=== PATIENT | female | born 1945 | race Caucasian/White ===

== ENCOUNTER 2017-08-17 11:41 | Observation (INO) | payer OTHER ==
[~2017-08-17 11:41] MED LIST: VALSARTAN 40 MG TAB PO SCH
[2017-08-17] MEDS ORDERED: D50W 25 GM/50 ML SYRINGE IV PRN (12:43)
[2017-08-17] MEDS ORDERED: GLUCAGON 1 MG/VIAL IM PRN (12:43)
[2017-08-17] MEDS ORDERED: NACHLORIDE 0.45% 1,000 ML IV SCH ×2 (13:00→22:00)
[2017-08-17 13:06] LABS: Urine Appearance CLOUDY; Urine Bilirubin NEGATIVE (NEG); Urine Blood NEGATIVE (NEG); Urine Color YELLOW; Urine Glucose 2+ (NEG); Urine Protein 2+ (NEG); Urine Specific Gravity 1.015 (1.005-1.030); Urine Urobilinogen 0.2 mg/dL (0.2-1.0)
[2017-08-17 13:08] LABS: Urine Microscopic Reflex ORDER UMIC
[2017-08-17 13:17] LABS: Urine Bacteria <20 /HPF (<20); Urine RBC <5 /HPF (NONE SEEN)
[2017-08-17 13:18] LABS: Urine Culture Reflex Order NOT NEEDED; Urine Yeast FEW (NONE SEEN)
[2017-08-17] MEDS: CLINDAMYCIN INJ 300 MG in NA CHLORIDE 0.9% 50 ML IV SCH ×2 (13:43→18:00)
--- NOTE | 2017-08-17 13:58 | RAD REPORT ---
EXAM DESCRIPTION: US - Abdomen Exam Complete - 08/17/2017 1:43 pm CLINICAL HISTORY: Abdominal pain. COMPARISON: None. FINDINGS: Mild diffuse fatty liver. No focal liver lesions or intrahepatic biliary dilatation is see n. The gallbladder demonstrates no gallstones, pericholecystic fluid or gallbladder wall thickening. Co mmon bile duct is normal in caliber measuring 4 mm. Both kidneys are normal in size, shape and echotexture. No hydronephrosis, focal lesion of concern or perinephric fluid. The spleen is normal in size measuring 8 cm. The pancreas and aorta are obscured by bowel gas. IVC appears grossly normal. IMPRESSION: Fatty liver.
[2017-08-17 14:27] VITALS: BMI 38.3
--- NOTE | 2017-08-17 16:15 | CON ---
Date of Consultation: 08/17/2017 Reason For Consultation: Infection, left breast. History Of Present Illness: The patient is 72-year-old female, who presented to Dr. Mascorro's office t bimal with left breast pain and had some drainage from the left breast, and she was admitted for IV an tibiotics and on workup she was noted to have elevated BUN and creatinine and that is being worked up as well. She states that her last mammogram was several years ago and was negative. She states gigi t this infection has been only there a couple of days, may have been bitten by something. There was no drainage up until just today when she was at Dr. Mascorro's office. There was surrounding erythema, warmth, and edema, which have resolved since the drainage has come down. No fever or chills. No nip ple discharge. Review of Systems: Otherwise unremarkable. Past Medical History: Significant for diabetes and some kidney issues, which is being worked up curr ently. Past Surgical History: Surgery includes right shoulder surgery. Allergies: INCLUDE IODINE. Social History: She does not smoke. Drinks occasionally. Family History: Noncontributory. Physical Examination: Vital Signs: Stable. Currently afebrile. General: She is awake, alert, oriented x3. Head and Neck: Cranial nerves 2 through 12 grossly within normal limits. No neck masses. No JVD. Throat clear. Neck is supple. Chest: Clear. Heart: S1, S2. Abdomen: Soft, nondistended. Mild tenderness on the right side. No rebound, rigidity, or guarding. Extremities: Adequately perfused. Nontender. Neuro: Nonfocal. Breasts: In the inferior aspect of the left breast and areolar skin margin, there was a pinpoint ope ricki with some minimal drainage. There is no fluctuance anymore. There is mild induration. There i s mild erythema. There is minimal warmth. Laboratory Data: Pending. Her BUN and creatinine were elevated at Dr. Mascorro's office. Assessment: A 72-year-old female with left breast cellulitis and abnormal kidney functions. Recommendations: IV antibiotics for the cellulitis. Cultures have been done, we will check the cult ures and adjust the antibiotics accordingly. At this time, I do not think she needs any surgical int ervention; however, should she not improve, then she may benefit from one. In the meantime, there is a consultation for Nephrology Service to evaluate her kidneys and I advised her once her wounds heal ed up, then she is to get her mammogram. We will follow this patient while in the hospital. XIOMARA/MARTY Voice ID: [id number] Report ID: [id number]
--- NOTE | 2017-08-17 17:25 | RAD REPORT ---
EXAM DESCRIPTION: CT - Abdomen Pelvis Wo Contrast - 08/17/2017 4:59 pm CLINICAL HISTORY: Abdominal pain right sided pain COMPARISON: August 17, 2017 abdominal ultrasound TECHNIQUE: Computed axial tomography of the abdomen and pelvis was obtained. IV was not requested. O ral contrast was given. Coronal reconstructions performed. All CT scans are performed using dose optimization technique as appropriate and may include automated exposure control or mA/KV adjustment according to patient size. FINDINGS: The evaluation of solid organs and vessels is limited secondary to the lack of contrast a dministration. The liver, spleen, pancreas, adrenals and right kidney appear grossly normal. 2 millimeter nonobstruc ting left renal calculus is seen. Renal arterial calcifications are noted. A Pedro catheter is present within the bladder. The appendix is normal. There is no evidence of diverticulitis. A small umbilical hernia is present IMPRESSION: 2 millimeter nonobstructing left renal calculus
[2017-08-17] MEDS ORDERED: NA CHLORIDE 0.9% 50 ML ONE (17:26)
[2017-08-17] MEDS: INSULIN -REGULAR HUMAN 50 UNIT/0.5 ML ML SQ SCH (17:35)
[2017-08-17] MEDS ORDERED: HOME MED 1 EA UNK (Gabapentin [Gralise] 300 MG) PO SCH (21:00)
[2017-08-17] MEDS: HYDRALAZINE HCL 25 MG TABLET PO SCH (22:15)
[2017-08-17 23:25] LABS: Hematocrit 27.3 % (36.0-45.0)
[2017-08-17 23:34] LABS: Potassium 4.9 mEq/L (3.6-5.0)
[2017-08-18] MEDS: CLINDAMYCIN INJ 300 MG in NA CHLORIDE 0.9% 50 ML IV SCH ×2 (00:12→06:11)
[2017-08-18] MEDS: INSULIN -REGULAR HUMAN 50 UNIT/0.5 ML ML SQ SCH ×5 (00:23→22:25)
[2017-08-18] MEDS: LEVOTHYROXINE SOD 0.112 MG TAB PO SCH (06:11)
[2017-08-18] MEDS: LEVOTHYROXINE SOD 0.025 MG TAB PO SCH (06:11)
[2017-08-18] MEDS ORDERED: AMLODIPINE 5 MG TAB PO SCH (09:00)
[2017-08-18] MEDS: GABAPENTIN 300 MG CAP PO SCH ×2 (09:37→22:28)
[2017-08-18] MEDS: HYDRALAZINE HCL 25 MG TABLET PO SCH ×2 (09:37→22:26)
[2017-08-18] MEDS: ATORVASTATIN 20 MG TAB PO SCH (09:37)
[2017-08-18] MEDS: NACHLORIDE 0.45% 1,000 ML IV SCH ×2 (11:02→22:25)
--- NOTE | 2017-08-18 11:49 | CON ---
Date of Consultation: 08/18/2017 Additional Consulting Physician: Duglas Villasenor MD Reason For Consultation: Elevated BUN and creatinine. 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 Back in June 2017, the patient was in her [facility], came to the hospital as she visited with her primary care doctor, Dr. Mascorro for b reast abscess, feeling weak for the last couple of weeks. Her lab showed elevated BUN and creatinine . For that reason, she was sent over. The patient denied taking any nonsteroidal, no IV contrast. The patient admits that has some poor intake in the last couple of days and has numbness and pain on the right flank radiating to the groin area, did not take more than Tylenol for that, even though it was not helping. Primary workup in our hospital show CT, normal size kidney but has calcification on the renal artery with nonobstructive calcification. Reviewing her home medication, the patient on A RB and amlodipine. No other insulting medications. In our hospital, Diovan was continued. Past Medical History: Include chronic kidney disease stage 4, baseline creatinine 1.8 to 2, GFR of 2 7, secondary to diabetes nephropathy. Hypertension, nephrosclerosis, hyperlipidemia, vitamin D defic iency, diabetes since 1994 complicated with retinopathy, neuropathy and nephropathy. Allergies: ALLERGIC TO IODINE. Medications: Home medications include olmesartan 20 daily, levothyroxine 137, hydralazine 50 b.i.d., glimepiride 4 mg twice a day, gabapentin 300 b.i.d., Lasix 40 daily, donepezil, cholecalciferol, mari rvastatin, Norvasc 5. Current medications in the hospital include amlodipine 5, atorvastatin, clinda mycin, gabapentin 300 b.i.d., hydralazine, levothyroxine, and valsartan. Social History: Denies smoking, denies drinking, denies drugs abuse. Family History: Positive for hypertension and diabetes. Review of Systems: Head and Neck: No red eye. No ear pain. GI: Has flank pain. : Has a flank pain. 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 Respiratory: No shortness of breath. Has breast pain. Cardiovascular: No chest pain. Neuro: Has neuropathy. Has flank pain. Has chest pain. Endocrine: No polydipsia. Skin: No rash. Physical Examination: Vital Signs: When I saw the patient, blood pressure of 152/66, pulse of 63, afebrile. The patient h ad good urine output over the night, she has 750. Chest: Clear to auscultation. Heart: S1, S2. Regular rhythm. Abdomen: Soft, nontender. Extremities: No edema. Laboratory Data: WBC 9.6, H and H 9.4/27.7, platelets of 321. Sodium 137, potassium 4.9, bicarb 24, BUN 50, creatinine 2.4, calcium 8.2, TSAT of 7.9. Urinalysis, WBC of 50. Serology was negative. Hepatitis was negative. Assessment And Plan: 1.Acute kidney injury secondary to prerenal, secondary to low blood pressure, secondary to the anemi a, superimposed with SHIV inhibitor and ARB use. Questionable of renal vascular disease, supported wi th the finding on the CAT scan. I am going to go ahead and send for eosinophil and send for compleme nt. We will send for LFT and LDH to rule out and we will follow up. Currently, the patient is nonol iguric. We will continue hydration. 2.Hypertension, controlled, not optimal in the presence of acute kidney injury. I am going to go ah ead and discontinue ARB and we will increase Norvasc to 10. We will start low dose of carvedilol. 3.Urinary tract infection. The patient was started on clindamycin, which not going to be covered fo r her urinary tract infection. I am going to add Levaquin. 4.Breast abscess status post drain by itself. I am going to go ahead and increase her clindamycin t o 600. We will add Levaquin and we will follow up. RUTH Voice ID: [id number] Report ID: [id number]
[2017-08-18] MEDS ORDERED: ACETAMINOPHEN 500 MG TAB PO PRN (12:29)
[2017-08-18] MEDS: Levofloxacin 250mg IV 250 MG/50 ML BAG IV SCH (12:31)
[2017-08-18] MEDS: CLINDAMYCIN INJ 600 MG in NA CHLORIDE 0.9% 50 ML IV SCH ×2 (12:31→18:23)
--- NOTE | 2017-08-18 12:33 | PN ---
Date of Progress Note: 08/18/2017 Subjective: The patient is awake, alert. No complaints of the left breast. Objective: Vital Signs: Stable. Afebrile. Extremities: Dressings clean dry and intact. Laboratory Data: Cultures are still pending, but appears to be skin nita. Assessment: Left breast cellulitis. Recommendations: Continue antibiotics. Once medically cleared, the patient can be discharged home o n oral antibiotics based on the sensitivities. No need for surgical intervention at this time. Jace SOLANO/MARTY Voice ID: [id number] Report ID: [id number]
--- NOTE | 2017-08-18 16:27 | HP ---
Date of Admission: 08/17/2017 Chief Complaint: Drainage and pain, left breast. History Of Present Illness: A 72-year-old has been worked up as an outpatient for abdominal pain; ho solitario, she came to the office with pain in the left breast. There was a portia discharge from the lef t breast abscess. At this point, the patient was admitted for observation for possibly draining the abscess completely. The patient denied any history of fever, chills, rigors. Past Medical History: Positive for type 2 diabetes, chronic renal failure, anemia, osteoarthritis, h ypothyroidism. Family History: Diabetes present. Personal History: She is allergic to iodine dye. Home Medicines: Please refer to the chart. Review of Systems: The patient denied any chest pain. Physical Examination: General: Revealed a 72-year-old obese female. Vital Signs: Temperature normal. HEENT: Negative. Neck: Supple. JVD negative. Chest: Clear. Heart: Regular. Abdomen: Tenderness in the upper abdomen. There is active drainage from the left breast. Extremities: No edema. Laboratory Data: Done as an outpatient showed hemoglobin of 8 g. BUN and creatinine elevated to 50 and 2.4 with estimated GFR of 19, blood sugar 359. Iron 32, normal. Assessment: 1.Left breast abscess. 2.Acute on chronic renal failure. 3.Poorly controlled diabetes. 4.Anemia with a normal iron level. 5.Hypothyroidism. 6.Hypertension. Plan: Dr. Nam saw the patient and during the process of coming from office to the hospital, she dr ained the abscess spontaneously with rupture, so surgery was not done. The patient was rehydrated to see whether her BUN and creatinine would improve. She received 1 unit of blood postop. Posttransfu rodrigo, her hemoglobin is over 8 g now. The patient is awaiting to be seen by Nephrology Service to se grady whether she would need additional workup as an inpatient. If this is done, she will be admitted. Otherwise, she will be discharged and followed up as an outpatient. She already has an appointment w [facility] private household worker for her blood sugars. The patient's blood sugars are much better in the hospital . It is very likely that she is not compliant with diet. This will be discussed with the patient. SANDRO/MARTY Voice ID: [id number]
[2017-08-18] MEDS ORDERED: GLUCAGON 1 MG/VIAL IM PRN (20:57)
[2017-08-18] MEDS ORDERED: D50W 25 GM/50 ML SYRINGE IV PRN (20:57)
[2017-08-18] MEDS: CARVEDILOL 6.25 MG TAB PO SCH (22:26)
[2017-08-19] MEDS: CLINDAMYCIN INJ 600 MG in NA CHLORIDE 0.9% 50 ML IV SCH ×3 (00:45→11:06)
[2017-08-19 03:35] VITALS: O2SAT 94
[2017-08-19 05:57] LABS: RBC Red Blood Cell Count 3.06 M/uL (3.86-4.86)
[2017-08-19 06:16] LABS: Albumin 2.7 g/dL (3.2-5.5); Phosphorus 5.3 mg/dL (2.5-4.3); Potassium 5.1 mEq/L (3.6-5.0)
[2017-08-19] MEDS: LEVOTHYROXINE SOD 0.112 MG TAB PO SCH (06:20)
[2017-08-19] MEDS: LEVOTHYROXINE SOD 0.025 MG TAB PO SCH (06:20)
[2017-08-19 06:42] LABS: Ferritin 13.4 ng/ml (11.0-306.8); Folic Acid, (Folate) 11.8 ng/ml (>5.21)
[2017-08-19 06:46] LABS: Thyroid Stimulating Hormone 11.94 uIU/mL (0.34-5.60)
[2017-08-19] MEDS: INSULIN -REGULAR HUMAN 50 UNIT/0.5 ML ML SQ SCH ×3 (07:30→17:03)
[2017-08-19] MEDS ORDERED: AMLODIPINE 10 MG TAB PO SCH (09:00)
[2017-08-19] MEDS: Levofloxacin 250mg IV 250 MG/50 ML BAG IV SCH (10:15)
[2017-08-19] MEDS: ATORVASTATIN 20 MG TAB PO SCH (10:16)
[2017-08-19] MEDS: HYDRALAZINE HCL 25 MG TABLET PO SCH (10:17)
[2017-08-19] MEDS: GABAPENTIN 300 MG CAP PO SCH (10:17)
[2017-08-19] MEDS: INSULIN DETEMIR 100 UNIT/1 ML INSULIN SQ SCH ×2 (10:17→17:03)
[2017-08-19] MEDS: CARVEDILOL 6.25 MG TAB PO SCH (10:18)
[2017-08-19] MEDS ORDERED: SOD FERRIC GLUC COMPLX/SUCROSE 250 MG in NA CHLORIDE 0.9% 250 ML IV SCH (12:00)
[2017-08-19] MEDS ORDERED: NACHLORIDE 0.45% 1,000 ML IV SCH (13:00)
--- NOTE | 2017-08-19 14:01 | PN ---
Date of Progress Note: 08/19/2017 Subjective: The patient doing better. No nausea. No vomiting. The patient was admitted with acute kidney injury and breast abscess. Physical Examination: Vital Signs: Blood pressure 126/83, pulse of 84. The patient had good urine output of 1500. Chest: Clear to auscultation. Heart: S1, S2. Regular. Abdomen: Soft, nontender. Extremities: No edema. Laboratory Data: H and H 8.9/27.3. Sodium 135, potassium 5.1, bicarb 22, BUN 51, creatinine down to 1.9, calcium 7.8, phosphorus 5.3, TSAT of 13. Ferritin of 123, TSH 11.9. Urinalysis positive for i nfection. Abdominal CT showing no hydro, nonobstructing kidney stone on the left, 2 mm, has arterial calcification. LDH was 123. Complement is still pending. Urine eosinophil is still pending. Medications: Current medications the patient on include clindamycin 600 q.6, Levaquin 250 daily, aml odipine 10 mg, hydralazine 50 b.i.d., gabapentin, normal saline at 75 per hour. Assessment And Plan: 1.Acute kidney injury secondary to prerenal, superimposed with ARB use, on the recovery phase, looke d to me normal volume. I am going to decrease IV fluid. We will plan to discontinue. 2.Hypertension, better controlled. We are going to add carvedilol. We will monitor the patient. 3.Iron deficiency anemia. We will start the patient on IV iron. 4.Urinary tract infection. Continue Levaquin. We will follow up culture. 5.Breast abscess. Continue clindamycin. We will follow up with primary. 6.Nephrolithiasis, possible contributing to her pain, nonobstructing. I am going to start the patient on Flomax. We will follow up the patient. JANI/MARTY Voice ID: [id number] Report ID: [id number]
--- NOTE | 2017-08-19 14:49 | RAD REPORT ---
EXAM DESCRIPTION: RAD - Chest Pa And Lat (2 Views) - 08/19/2017 2:42 pm CLINICAL HISTORY: J14.9 Chest pain. COMPARISON: Chest Pa And Lat (2 Views) dated 12/15/2016; Chest Single View dated 11/04/2016; Chest Si ngle View dated 11/03/2016; Chest Single View dated 11/02/2016 FINDINGS: The lungs are clear. Minimal linear atelectasis left mid lung. The heart is moderately enl arged in size. No displaced fractures. Right humeral prosthesis is noted. IMPRESSION: Moderate cardiomegaly.
[2017-08-19 17:17] VITALS: BP 139/65; TEMP 97.7
[2017-08-20] MEDS ORDERED: LEVOTHYROXINE SOD 0.075 MG TAB PO SCH (06:30)
[2017-08-20] MEDS ORDERED: TAMSULOSIN 0.4 MG SR CAP PO SCH (09:00)
== END 2017-08-19 17:23 | disposition home or self-care (01) ==
LOC: 2ND 11:49
PROVIDERS: ADMIT Internal Medicine; ATTEND Internal Medicine
PROC: 30233N1 Transfusion of Nonautologous Red Blood Cells into Peripheral Vein, Percutaneous Approach (ICD-10-PCS; principal; 2017-08-17)
DX: N61.1 Abscess of the breast and nipple (principal); I12.9 Hypertensive chronic kidney disease with stage 1 through stage 4 chronic kidney disease, or unspecified chronic kidney disease; E11.22 Type 2 diabetes mellitus with diabetic chronic kidney disease; N18.4 Chronic kidney disease, stage 4 (severe); N17.9 Acute kidney failure, unspecified; N39.0 Urinary tract infection, site not specified; E78.5 Hyperlipidemia, unspecified; E11.40 Type 2 diabetes mellitus with diabetic neuropathy, unspecified; E03.9 Hypothyroidism, unspecified; D64.9 Anemia, unspecified; N20.0 Calculus of kidney
CPT/HCPCS: 36415 ×2; 36430; 71046; 74176; 76700; 80048; 80069; 82607; 82728; 82746; 82962 ×11; 83540; 83615; 84439; 84443; 84466; 85014; 85018; 85044; 86160 ×2; 86850; 86900; 86901; 87070; 87077; 87086; 87088; 87186; 87205; 88108; J2916; P9016; 81003; 81015

== ENCOUNTER 2017-09-01 16:21 | Observation (INO) | payer OTHER ==
[2017-09-01] MEDS ORDERED: ONDANSETRON 4 MG/2 ML VIAL IV PRN (16:44)
[2017-09-01] MEDS ORDERED: CEFTRIAXONE/SWI 1gm 1 GM/10 ML SYR IVP SCH (17:00)
[2017-09-01] MEDS: Levofloxacin 250mg IV 250 MG/50 ML BAG IV SCH (17:39)
[2017-09-01] MEDS: NA CHLORIDE 0.9% 1,000 ML IV SCH (17:44)
[2017-09-01 17:48] VITALS: BMI 40.3
[2017-09-01] MEDS ORDERED: D50W 25 GM/50 ML SYRINGE IV PRN (17:49)
[2017-09-01] MEDS ORDERED: GLUCAGON 1 MG/VIAL IM PRN (17:49)
[2017-09-01 18:45] LABS: Uric Acid 10.3 mg/dL (2.6-6.0)
[2017-09-01 18:55] LABS: Absolute Lymphocytes (CBC) 1.3 K/uL (0.7-4.9); Absolute Monocytes 0.8 K/uL (0.1-1.3); Absolute Neutrophil 9.1 K/uL (1.8-8.0); Basophils % 0.7 % (0-1.3); Hematocrit 28.2 % (36.0-45.0); Lymphocytes % 11.3 % (15.3-44.8); MCH 28.1 pg (27.0-35.0); MCV 88.8 fL (80-100); MPV 9.3 fL (7.6-11.3); Monocytes % 6.5 % (3.3-12.3); RBC Red Blood Cell Count 3.18 M/uL (3.86-4.86)
[2017-09-01 19:29] LABS: Magnesium 2.9 mg/dL (1.8-2.4); Potassium 4.8 mmol/L (3.5-5.1)
[2017-09-01] MEDS ORDERED: PNEUMOCOCCAL VACCINE 0.5 ML IMVAC ONE (20:00)
--- NOTE | 2017-09-01 21:20 | RAD REPORT ---
EXAM DESCRIPTION: US - Renal Ultrasound-Complete - 09/01/2017 8:19 pm CLINICAL HISTORY: Acute on chronic renal disease, UTI COMPARISON: None. FINDINGS: The right kidney measures 9.9 x 4.5 x 4.9 cm. The left kidney measures 10.2 x 5.5 x 4.0 c m. Cortical thickness is normal. Echogenicity is increased for both kidneys. This can be medical danielle l disease as well as artifact due to large body habitus. No hydronephrosis or suspicious renal mass. No urinary bladder mass or wall thickening. IMPRESSION: No hydronephrosis or suspicious renal mass. Increased cortical echogenicity can be seen with medical renal disease. Artifact from large body habi tus can create this pattern as well.
[2017-09-01] MEDS: INSULIN -REGULAR HUMAN 50 UNIT/0.5 ML ML SQ SCH (21:49)
[2017-09-01 22:10] LABS: Urine Appearance TURBID; Urine Bilirubin NEGATIVE (NEG); Urine Blood 1+ (NEG); Urine Color ORANGE; Urine Glucose NEGATIVE (NEG); Urine Protein 2+ (NEG); Urine Specific Gravity 1.015 (1.005-1.030); Urine pH 5.5 (5.0-7.0)
[2017-09-01 22:18] LABS: Urine Microscopic Reflex ORDER UMIC
[2017-09-01 22:29] LABS: Urine Culture Reflex Order REFLEXED
[2017-09-01 22:30] LABS: Urine Bacteria <20 /HPF (<20); Urine RBC <5 /HPF (NONE SEEN)
[2017-09-02] MEDS: NA CHLORIDE 0.9% 1,000 ML IV SCH ×3 (04:27→23:00)
[2017-09-02 05:25] LABS: Phosphorus 4.7 mg/dL (2.5-4.9); Potassium 4.8 mmol/L (3.5-5.1)
[2017-09-02] MEDS: INSULIN -REGULAR HUMAN 50 UNIT/0.5 ML ML SQ SCH ×4 (07:30→22:15)
[2017-09-02] MEDS: PANTOPRAZOLE 40MG TABLET PO SCH (09:16)
--- NOTE | 2017-09-02 11:23 | RAD REPORT ---
EXAM DESCRIPTION: US - Urinary Bladder - 09/02/2017 11:11 am CLINICAL HISTORY: Abdominal pain/renal injury FINDINGS: Prevoid bladder volume equals 157 cc Postvoid bladder volume equals 10 cc No ascites is noted. An adnexal mass is not seen. IMPRESSION: Prevoid bladder volume equals 157 cc Postvoid bladder volume equals 10 cc
[2017-09-02] MEDS ORDERED: NA CHLORIDE 0.9% 500 ML IV ONE (12:22)
[2017-09-02] MEDS: AMLODIPINE 10 MG TAB PO SCH (13:46)
--- NOTE | 2017-09-02 17:10 | CON ---
Date of Consultation: 09/02/2017 Additional Consulting Physician: Duglas Villasenor MD Reason For Consultation: Elevated BUN and creatinine, hyperkalemia. 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 The patient came to the office yesterday, found to have elevated creatinine up to 3 with hyperkalemia. For that reason, the patient was directed to the emergency room for direct admis rodrigo. The patient over the night started on IV hydration. The patient was started on olmesartan rec ently. The patient denied any change in her diet. No nausea. No vomiting. No IV contrast. No non steroidal intake. Over the night, the patient was started on IV hydration, creatinine down to 2.6. Potassium has been back to normal. Blood pressure has been stable. Past Medical History: Includes: 1.Chronic kidney disease, stage 3B/4 secondary to diabetes nephropathy. 2.Hypertension. 3.Hyperlipidemia. 4.Vitamin D deficiency. 5.Diabetes complicated with neuropathy, nephropathy, and retinopathy. Allergies: TO IODINE. Medications: Home medications include: 1.Januvia. 2. 3.Levothyroxine. 4.Hydralazine b.i.d. 5.Gabapentin. 6.Lasix 40 daily. 7.Aricept. 8.Cholecalciferol. 9.Atorvastatin. 10.Olmesartan. 11.Amlodipine. Current medications in the hospital include insulin, Levaquin, levothyroxine, and pantoprazole. Review of Systems: Head and Neck: No red eye. No ear pain. GI: No nausea. No vomiting. : No polyuria. No dysuria. No hematuria. 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 Respiratory: No shortness of breath. Cardiovascular: No chest pain. Neuro: No weakness. No tremor. Musculoskeletal: No joint pain. Endocrine: No polydipsia. Skin: No rash. Physical Examination: General: When I saw the patient, the patient sitting in the bed, comfortable, not on any distress, o n IV fluid. Vital Signs: Blood pressure 142/64, pulse of 58, afebrile. Chest: Clear to auscultation. Heart: S1, S2. Regular. Abdomen: Soft, nontender. Extremities: No edema. Laboratory Data: WBC 11.6, H and H 8.9/28.2 which is around her baseline, platelets 286. Sodium 140 , potassium 4.8, bicarb 21, BUN 77, creatinine down to 2.6, GFR of 18. Blood sugar still on the 200, uric acid of 10.3, albumin of 3, LDH of 171, CK of 100. Previous lab data; creatinine yesterday was 2.8 and back on the , it was 2.4. GFR was down to 14. Renal ultrasound; normal size kidney 9.9 x 10.2, no hydronephrosis. Bladder ultrasound; no postvoid. Assessment And Plan: 1.Acute kidney injury secondary to prerenal, complicated with hyperkalemia, possible superimposed wi th olmesartan, possible renal artery stenosis given the recurrent acute kidney injury after starting ARB on the patient and the patient's finding on the CAT scan before. I am going to continue hydratio n. I am going to go ahead and give the patient extra bolus of normal saline of 500, and we will foll ow up the patient. If the kidney function continued to improve, we will keep holding ARB. The patie nt not a candidate for any ARB for the time being and we will monitor the patient. The patient may n eed MRA as outpatient to evaluate the renal artery. 2.Hyperkalemia secondary to renal failure and ARB, recovered, resolved. 3.Hypertension. Given the acute kidney injury, I will keep holding ARB or SHIV inhibitor and we will monitor the patient. I am going to go ahead and start the patient on gentle dose of calcium channel libby to establish better blood pressure control. 4.Urinary tract infection. We will start the patient on Levaquin, dose adjusted. 5.Diabetes as by primary. JANI/MARTY Voice ID: [id number] Report ID: [id number]
[2017-09-02] MEDS: Levofloxacin 250mg IV 250 MG/50 ML BAG IV SCH (17:19)
--- NOTE | 2017-09-02 18:41 | HP ---
Date of Admission: 09/01/2017 Chief Complaint: Worsening of renal function. History Of Present Illness: A 72-year-old female, who is known to have multiple medical problems inc luding chronic renal failure, was admitted initially with hospitalist because of worsening renal fail ure and UTI. It was later transferred to my service. The patient has been having dysuria. There is no history of fever, chills, or rigors. The patient denied any chest pain or shortness of breath. Past Medical History: Positive for hypertension, type 2 diabetes, chronic renal failure, hypothyroid ism, hyperlipidemia, venous insufficiency. Family History: Diabetes present. Personal History: Nonsmoker. Home Medicines: Please refer to the chart. Review of Systems: No chest pain or shortness of breath. Physical Examination: General: Revealed a 72-year-old obese female. Vital Signs: Normal. HEENT: Negative. Neck: Supple. JVD negative. Chest: Clear. Heart: Regular. Abdomen: Pendulous, nontender. Extremities: Mild pedal edema. Laboratory Data: Showed a BUN of 79, creatinine 2.8, GFR 17, random blood sugar of 232, magnesium 2. 9, procalcitonin 0.06. Urinalysis showed evidence of UTI with pyuria and bacteriuria. CBC; white co unt 11.6, hemoglobin 8.9. Assessment: 1.Acute on chronic renal failure. 2.Urinary tract infection. 3.Type 2 diabetes. 4.Hypertension. 5.Hyperlipidemia. 6.Hypothyroidism. Plan: The patient is started on Levaquin. This will be continued for now. Her renal ultrasound myers s not show any evidence of obstruction. The patient will be continued on IV fluids to see whether th at would improve her kidney function along with the antibiotic. The patient is started on thyroid me dication and Lipitor. Since her blood pressure is normal, blood pressure medicines will be on hold f or now. She is put on a sliding scale for her blood sugars. SANDRO/MARTY Voice ID: [id number]
[2017-09-02] MEDS: ATORVASTATIN 20 MG TAB PO SCH (22:15)
[2017-09-03] MEDS: NA CHLORIDE 0.9% 1,000 ML IV SCH ×4 (01:54→23:30)
[2017-09-03] MEDS: LEVOTHYROXINE SOD 0.112 MG TAB PO SCH (05:56)
[2017-09-03] MEDS: LEVOTHYROXINE SOD 0.025 MG TAB PO SCH (05:56)
[2017-09-03] MEDS: INSULIN -REGULAR HUMAN 50 UNIT/0.5 ML ML SQ SCH ×4 (07:30→20:41)
[2017-09-03] MEDS: ACETAMINOPHEN 500 MG TAB PO PRN (08:47)
[2017-09-03] MEDS: AMLODIPINE 10 MG TAB PO SCH (08:48)
[2017-09-03] MEDS: PANTOPRAZOLE 40MG TABLET PO SCH (08:48)
[2017-09-03] MEDS: Levofloxacin 250mg IV 250 MG/50 ML BAG IV SCH (16:09)
[2017-09-03] MEDS: ATORVASTATIN 20 MG TAB PO SCH (20:38)
--- NOTE | 2017-09-04 01:46 | PN ---
Date of Progress Note: 09/03/2017 Chief Complaint: Elevated BUN and creatinine, hyperkalemia, diabetic kidney disease, and chronic kidney stage 3, acute kidney injury. History Of Present Illness: The patient developed progressively worse renal function. She has underlying chronic kidney disease stage 3. She was found to have high BUN and creatinine ratio, BUN of 77, creatinine of 2.6. Renal function has declined. The patient was found to have acute kidney injury secondary to severe prerenal azotemia, complicated with hyperkalemia. The patient was treated for hyperkalemia and she was taken off angiotensin receptor libby. She developed hyperkalemia secondary to renal function worsening potentiated by angiotensin receptor libby and hypoperfusion. Review of Systems: The patient denies fever, chills. Physical Examination: Lungs: Clear to auscultation bilaterally. Heart: S1, S2. Abdomen: Soft, benign. Extremities: Minimal edema. Laboratory Data: Potassium 4.8, sodium 140, BUN 77, creatinine 2.6. Renal ultrasound showed kidney size 9.9 and 10.2. No hydronephrosis. Bladder ultrasound did not show increased postvoid residual volume. Impression And Plan: 1. Acute kidney injury secondary to severe prerenal azotemia complicated by hyperkalemia, possible effect of angiotensin receptor libby, and possible effect of nonsteroidal antiinflammatory medication. The patient will avoid nonsteroidal antiinflammatory medication. 2. Hyperkalemia. Continue low-potassium diet and continue IV fluids for volume control and to prevent worsening of the renal function. 3. Avoid nonsteroidal anti-inflammatory medication. 4. Diabetes mellitus. Continue insulin. 5. Urinary tract infection. The patient is on antibiotics and adjust antibiotics to renal dose. I spent total 36 min including 26 min to coordinate care plan. JOAQUINA/MARTY Voice ID: [id number] Report ID: [id number] ARIADNA
[2017-09-04] MEDS: NA CHLORIDE 0.9% 1,000 ML IV SCH ×2 (04:49→12:02)
[2017-09-04 05:36] LABS: Albumin 2.7 g/dL (3.4-5.0); Phosphorus 3.3 mg/dL (2.5-4.9); Potassium 5.1 mmol/L (3.5-5.1)
[2017-09-04] MEDS: LEVOTHYROXINE SOD 0.025 MG TAB PO SCH (06:26)
[2017-09-04] MEDS: LEVOTHYROXINE SOD 0.112 MG TAB PO SCH (06:26)
[2017-09-04] MEDS: INSULIN -REGULAR HUMAN 50 UNIT/0.5 ML ML SQ SCH ×5 (09:10→21:00)
[2017-09-04] MEDS: ACETAMINOPHEN 500 MG TAB PO PRN ×2 (09:14→17:32)
[2017-09-04] MEDS: PANTOPRAZOLE 40MG TABLET PO SCH (09:14)
[2017-09-04] MEDS: AMLODIPINE 10 MG TAB PO SCH (09:15)
[2017-09-04] MEDS: Levofloxacin 250mg IV 250 MG/50 ML BAG IV SCH (17:35)
[2017-09-04] MEDS: ATORVASTATIN 20 MG TAB PO SCH (20:20)
[2017-09-05] MEDS: NA CHLORIDE 0.9% 1,000 ML IV SCH ×2 (00:30→11:00)
--- NOTE | 2017-09-05 04:49 | PN ---
Date of Progress Note: 09/04/2017 duplicate see 09/04/2017 note dictation MTDD
[2017-09-05 05:41] LABS: Albumin 2.7 g/dL (3.4-5.0); Phosphorus 2.9 mg/dL (2.5-4.9)
[2017-09-05] MEDS: LEVOTHYROXINE SOD 0.025 MG TAB PO SCH (06:02)
[2017-09-05] MEDS: ACETAMINOPHEN 500 MG TAB PO PRN (06:02)
[2017-09-05] MEDS: LEVOTHYROXINE SOD 0.112 MG TAB PO SCH (06:02)
[2017-09-05] MEDS: AMLODIPINE 10 MG TAB PO SCH (08:49)
[2017-09-05] MEDS: INSULIN -REGULAR HUMAN 50 UNIT/0.5 ML ML SQ SCH ×2 (08:50→11:30)
[2017-09-05] MEDS: PANTOPRAZOLE 40MG TABLET PO SCH (08:50)
[2017-09-05 09:11] VITALS: O2SAT 97
[2017-09-05 13:10] VITALS: BP 163/70; TEMP 98.4
--- NOTE | 2017-09-05 14:14 | PN ---
Date of Progress Note: 09/04/2017 Chief Complaint: Prerenal azotemia, acute kidney injury on chronic kidney disease. The patient remains nonoliguric. She is tolerating p.o. intake. Review of Systems: Denies fever or chills. Denies nausea or vomiting. She is complaining of generalized weakness, fatigue. Physical Examination: Vital Signs: Blood pressure is 166/67, heart rate 66, respiratory rate 18, temperature 98.7. General: Not in acute distress Eyes: Anicteric sclerae. Lungs: Clear to auscultation bilaterally. Heart: S1, S2. Abdomen: Soft, benign. EXTREMITIES: Minimal edema. Laboratory Data: Hemoglobin 8.9, WBC 11.6, platelet count 286,000, BUN 46, creatinine 1.8, glucose 177, calcium 8.3, albumin 2.7. Sodium 145, potassium 5.1, chloride 116, CO2 22. Impression And Plan: 1. Acute kidney injury on chronic kidney disease stage 3. There is high BUN and creatinine ratio. On arrival to this hospital, BUN was 77, creatinine 2.6. Renal function has been gradually improving. The patient was found to have prerenal azotemia associated with hyperkalemia. There is no significant metabolic acidosis. The patient will avoid nonsteroidal anti-inflammatory medication. 2. Hypoalbuminemia. Workup will be started for proteinuria. The patient has diabetes mellitus, likely there is element of proteinuria secondary to diabetic kidney disease. 3. Urinary tract infection. The patient is on antibiotics. Adjust antibiotics to renal dose. SANG Voice ID: [id number] Report ID: [id number] ARIADNA
--- NOTE | 2017-09-05 22:40 | PN ---
Date of Progress Note: 09/05/2017 Chief Complaint: Prerenal azotemia, acute kidney injury on chronic kidney disease. Review of Systems: The patient is feeling better. She is tolerating p.o. intake. She denies nausea, vomiting, melena, or hematemesis. Physical Examination: Lungs: Clear to auscultation bilaterally. Heart: S1, S2. Abdomen: Soft, benign. Extremities: Minimal edema. Laboratory Data: WBC 11.6, platelet count 286,000. Creatinine 1.8, glucose 177 , calcium 8.3, albumin 2.5, potassium 5.0, sodium 143, chloride 116, CO2 22. Impression And Plan: 1. Acute kidney injury on chronic kidney disease stage 3. BUN was 77, creatinine 2.6. Renal function is improving gradually. Continue to monitor fluid balance. Advance p.o. fluids as needed. 2. There is no evidence of metabolic acidosis. The patient will continue low- potassium diet and plan is to monitor potassium level. 3. Hypoalbuminemia. Workup will be started for proteinuria. The patient will need to follow up with primary care physician as well as surveillance dual rate officer outpatient for further recommendation. 4. Urinary tract infection. The patient was treated with antibiotics. JOAQUINA/MARTY Voice ID: [id number] Report ID: [id number] ARIADNA
--- NOTE | 2017-10-17 19:13 | DS ---
Date of Discharge: 09/05/2017 Final Diagnoses: 1.Acute on chronic renal failure. 2.Type 2 diabetes, requiring insulin. 3.Hypertension. 4.Chronic renal failure. 5.Urinary tract infection. 6.Hyperlipidemia. 7.Hypothyroidism. Hospital Course: This patient, who is known to have type 2 diabetes and chronic renal failure, was a dmitted with worsening of renal failure and UTI. The patient after admission to the hospital was sta rted on Levaquin. She received IV fluids to see whether that would improve her renal function over t he next few days. Her renal function did improve and on the day of discharge, her BUN and creatinine came down to 34 and 1.7 which was quite an improvement from her initial BUN of 79 and creatinine of 2.8. In view of this, the patient was discharged with advice to continue antibiotic and follow up in the office. Laboratory Data: For laboratory values, please refer to the chart. SANDRO/MARTY Voice ID: [id number] Report ID: [id number]
== END 2017-09-05 15:37 | disposition home or self-care (01) ==
LOC: 2ND 16:31 → OBSVTOIN 16:31 → INTOOBSV 16:31 → 2ND 09-03 17:43
PROVIDERS: ADMIT Family Medicine; ATTEND Internal Medicine
DX: I12.9 Hypertensive chronic kidney disease with stage 1 through stage 4 chronic kidney disease, or unspecified chronic kidney disease (principal); E11.22 Type 2 diabetes mellitus with diabetic chronic kidney disease; N18.3 Chronic kidney disease, stage 3 (moderate); N17.9 Acute kidney failure, unspecified; N39.0 Urinary tract infection, site not specified; E03.9 Hypothyroidism, unspecified; E78.5 Hyperlipidemia, unspecified; E87.5 Hyperkalemia; E88.09 Other disorders of plasma-protein metabolism, not elsewhere classified; E66.9 Obesity, unspecified; Z68.41 Body mass index [BMI] 40.0-44.9, adult; Z91.041 Radiographic dye allergy status
CPT/HCPCS: 36415 ×4; 76770; 76857; 80048 ×2; 80069 ×3; 82040; 82550; 82962 ×15; 83615; 83735; 84100; 84145; 84550; 85025; 87040 ×2; 87086; 87088; G0378 ×2; J2405; J7030 ×9; 81003; 81015; G0379; J0696

== ENCOUNTER 2017-12-15 16:06 | Inpatient (IN) | payer OTHER ==
[2017-12-15] MEDS ORDERED: FUROSEMIDE 20 MG/ 2ML VIAL IV ONE (19:03)
[2017-12-15] MEDS ORDERED: GLUCAGON 1 MG/VIAL IM PRN (19:05)
[2017-12-15] MEDS ORDERED: D50W 25 GM/50 ML SYRINGE IV PRN (19:05)
[2017-12-15] MEDS ORDERED: ALBUTEROL 2.5 MG/3 ML NEB SOL NEB ONE (20:15)
[2017-12-15] MEDS ORDERED: D50W 25 GM/50 ML SYRINGE IV ONE (20:16)
[2017-12-15] MEDS ORDERED: INSULIN -REGULAR HUMAN 50 UNIT/0.5 ML ML IV ONE (20:18)
[2017-12-15] MEDS ORDERED: FUROSEMIDE 40 MG/4 ML VIAL IV ONE (20:25)
[2017-12-15] MEDS ORDERED: INSULIN -REGULAR HUMAN 50 UNIT/0.5 ML ML SQ SCH (21:00)
[2017-12-15] MEDS ORDERED: GABAPENTIN 100 MG CAP PO SCH (21:00)
[2017-12-15 21:21] LABS: Folic Acid, (Folate) 15.5 ng/mL (3.1-17.5)
--- NOTE | 2017-12-15 21:22 | RAD REPORT ---
EXAM DESCRIPTION: RAD - Chest Single View - 12/15/2017 9:11 pm CLINICAL HISTORY: chf Chest pain. COMPARISON: Chest Pa And Lat (2 Views) dated 08/19/2017; Chest Pa And Lat (2 Views) dated 12/15/2016; Chest Single View dated 11/04/2016; Chest Single View dated 11/03/2016 FINDINGS: Portable technique limits examination quality. Mild interstitial pulmonary edema is noted. The heart is moderately enlarged in size. No displaced fr actures.Proximal right humeral hardware noted. IMPRESSION: Mild CHF versus volume overload pattern.
[2017-12-15 21:53] LABS: Thyroid Stimulating Hormone 4.72 uIU/mL (0.360-3.740)
[2017-12-15] MEDS: FUROSEMIDE 40 MG/4 ML VIAL IV SCH (23:05)
[2017-12-15] MEDS: DONEPEZIL HCL 5 MG TAB PO SCH (23:06)
[2017-12-15] MEDS: HYDRALAZINE HCL 25 MG TABLET PO SCH (23:06)
[2017-12-15] MEDS: ATORVASTATIN 20 MG TAB PO SCH (23:06)
[2017-12-15] MEDS ORDERED: NA CHLORIDE 0.9% 250 ML ONE (23:31)
[2017-12-16] MEDS: FUROSEMIDE 40 MG/4 ML VIAL IV SCH ×3 (01:00→22:43)
[2017-12-16 05:16] LABS: Urine Protein/Creatinine Ratio 2.55 ratio (<0.15)
[2017-12-16 05:55] LABS: RBC Red Blood Cell Count 2.45 M/uL (3.86-4.86)
[2017-12-16 05:56] LABS: Hematocrit 21.6 % (36.0-45.0)
[2017-12-16 06:33] LABS: Albumin 2.6 g/dL (3.4-5.0); Ferritin 10.4 ng/mL (8-388); Folic Acid, (Folate) 14.7 ng/mL (3.1-17.5); Phosphorus 5.6 mg/dL (2.5-4.9); Potassium 4.9 mmol/L (3.5-5.1)
[2017-12-16] MEDS: LEVOTHYROXINE SOD 0.025 MG TAB PO SCH (07:42)
[2017-12-16] MEDS: LEVOTHYROXINE SOD 0.112 MG TAB PO SCH (07:43)
[2017-12-16] MEDS ORDERED: CODEINE 30MG/APAP 300MG TAB PO PRN (07:55)
--- NOTE | 2017-12-16 08:04 | RAD REPORT ---
EXAM DESCRIPTION: US - Renal Ultrasound-Complete - 12/15/2017 10:30 pm CLINICAL HISTORY: . Acute renal insufficiency COMPARISON: August 2017 FINDINGS: The right kidney measures 10 cm with a normal echotexture. The left kidney measures 10 cm with a normal echotexture. Hydronephrosis is not seen. IMPRESSION: Unremarkable renal ultrasound.
[2017-12-16] MEDS: HYDRALAZINE HCL 25 MG TABLET PO SCH ×2 (08:48→22:43)
[2017-12-16] MEDS: GABAPENTIN 300 MG CAP PO SCH ×2 (08:48→22:44)
[2017-12-16] MEDS: METOPROLOL XL 25 MG TAB PO SCH (08:57)
[2017-12-16] MEDS: AMLODIPINE 5 MG TAB PO SCH (08:57)
[2017-12-16 09:47] VITALS: BMI 41.5
[2017-12-16] MEDS ORDERED: NA CHLORIDE 0.9% 250 ML ONE ×2 (10:10→16:16)
[2017-12-16] MEDS ORDERED: BISACODYL E.C. 5 MG TAB PO ONE (17:00)
[2017-12-16] MEDS ORDERED: GOLYTELY 4000 ML PO SCH (17:00)
--- NOTE | 2017-12-16 18:56 | HP ---
Date of Admission: 12/15/2017 Chief Complaint: Severe anemia, hyperkalemia. History Of Present Illness: A 72-year-old female, who is known to have multiple medical issues, was seen by Dr. Vasquez for her renal failure. The patient was found to have hemoglobin below 8 g. The patient is admitted also because of hyperkalemia associated with the renal failure. The patient den ies any history of black stools recently. No history of vomiting of blood. Past Medical History: Extensive includes chronic renal failure, type 2 diabetes, hypertension, hypot hyroidism, dementia, diabetic neuropathy, hyperlipidemia. Past Surgical History: Positive for right shoulder surgery, right wrist injury and surgery. Family History: Diabetes present. Personal History: Allergic to iodine. Review of Systems: The patient denies any chest pain. Physical Examination: General: Revealed 72-year-old female, alert for her age. HEENT: Negative other than conjunctiva pallor. Neck: Supple. JVD negative. Chest: Few scattered wheezes. Heart: Regular. Abdomen: Pendulous, nontender. Extremities: Mild pedal edema. Laboratory Data: Hemoglobin after transfusion of 1 unit is 7.3. Chem profile; BUN 81, creatinine 3. 3, GFR 14, TSH 4.7, iron 21.0. Assessment: 1.Severe anemia. 2.Uqtct-ks-wsomwnf renal failure with hyperkalemia. 3.Hypertension. 4.Hyperlipidemia. 5.Type 2 diabetes requiring insulin. 6.Dementia. Plan: The patient had 1 unit of packed RBC last night. She is due to get 1 more unit. GI consultat ion has been done. SANDRO/MARTY Voice ID: [id number]
[2017-12-16] MEDS ORDERED: GLUCAGON 1 MG/VIAL IM PRN (20:07)
[2017-12-16] MEDS ORDERED: D50W 25 GM/50 ML SYRINGE IV PRN (20:07)
[2017-12-16] MEDS: INSULIN -REGULAR HUMAN 50 UNIT/0.5 ML ML SQ SCH (21:00)
[2017-12-16] MEDS: DONEPEZIL HCL 5 MG TAB PO SCH (22:43)
[2017-12-16] MEDS: ATORVASTATIN 20 MG TAB PO SCH (22:44)
--- NOTE | 2017-12-16 23:32 | P.PN ---
Subjective Date of Service: 12/16/17 Chief Complaint: Sent for abnromal labs and LE edema Subjective: No new changes Pt with Hx od DM and CKD Cr ~2.0, eGFR ~17 sent by her PCP for LE edema and abnormal labs Denied nausea, vomiting, diarrhea and constipation, chest pain, palpitation Physical Examination - Vital Signs Temperature: 97.5 F Blood Pressure: 127/47 Pulse: 50 Respirations: 18 Pulse Ox (%): 90 - Physical Exam General: Oriented x3 HEENT: Atraumatic Neck: Supple Cardiovascular: Regular rate/rhythm, Normal S1 S2, Edema (trace ) - Studies Laboratory Data (last 24 hrs) 12/16/17 : Sodium Cancelled, Potassium Cancelled, BUN Cancelled, Creatinine Cancelled, Glucose Cancelled 12/16/17 05:21: Hgb 7.3 L*, Hct 21.6 L 12/16/17 05:21: Sodium 139, Potassium 4.9, BUN 81 H, Creatinine 3.30 H, Glucose 145 H, Phosphorus 5.6 H Assessment And Plan - Current Problems (Diagnosis) (1) Chronic renal disease Onset Date: 09/02/17 Current Visit: No Status: Chronic (2) Diabetes mellitus Current Visit: No Status: Chronic - Plan A 72 Y/O woman with PMHx of DM for ~30yrs, with neuropathy and retinopathy, HTN and CKD IV was by Dr Fajardo for LE edema, anemia and eleavted RFT Denied PMHx: as Above PSH: Rt shoulder surgery, Wrist Sx Allergies: Iodinated contrast Family Hx: DM Social: denied smoking Assessmnet and plan Progressive CKD DM progression and fluid overload Renal diet adjust meds as per RFT Will send for SPEP, UPEP, K/l and UPC doesnt need WRITING TUTOR at this time will reduce lasix Acute anemia S/p PRBC Plan for EGD and colonoscopy iron panel and ferritin FRANSICO HTN DM as per primary team Raphael
[2017-12-17 05:56] LABS: Albumin 2.7 g/dL (3.4-5.0); Phosphorus 4.8 mg/dL (2.5-4.9)
[2017-12-17] MEDS: LEVOTHYROXINE SOD 0.112 MG TAB PO SCH (06:00)
[2017-12-17] MEDS: LEVOTHYROXINE SOD 0.025 MG TAB PO SCH (06:00)
[2017-12-17 06:04] LABS: Hematocrit 29.6 % (36.0-45.0)
[2017-12-17] MEDS: INSULIN -REGULAR HUMAN 50 UNIT/0.5 ML ML SQ SCH ×4 (07:30→21:00)
[2017-12-17 07:46] LABS: Ferritin 31.7 ng/mL (8-388)
[2017-12-17] MEDS: AMLODIPINE 5 MG TAB PO SCH (09:00)
[2017-12-17] MEDS: GABAPENTIN 300 MG CAP PO SCH ×2 (09:00→21:28)
[2017-12-17] MEDS: METOPROLOL XL 25 MG TAB PO SCH (09:00)
[2017-12-17] MEDS: HYDRALAZINE HCL 25 MG TABLET PO SCH ×2 (09:00→21:27)
[2017-12-17] MEDS ORDERED: EPOETIN ALFA 10,000 UNIT/ML SQ ONE (09:00)
[2017-12-17] MEDS: FUROSEMIDE 40 MG/4 ML VIAL IV SCH ×2 (10:08→21:28)
[2017-12-17] MEDS ORDERED: NA CHLORIDE 0.9% 1,000 ML ONE (12:14)
[2017-12-17] MEDS ORDERED: PROPOFOL 200 MG/20 ML VIAL IV ONE (12:35)
[2017-12-17] MEDS ORDERED: LIDOCAINE 2% MPF 5 ML VIAL ONE (12:36)
--- NOTE | 2017-12-17 12:37 | P.PN ---
Subjective Date of Service: 12/17/17 Chief Complaint: Sent for abnromal labs and LE edema Pt with Hx od DM and CKD Cr ~2.0, eGFR ~17 sent by her PCP for LE edema and abnormal labs Denied nausea, vomiting, diarrhea and constipation, chest pain, palpitation Today feels better Cr 3.0 Hb 10 now plan for EGD lasix to bid Epogen today F/U SPEP, UPEP, 24hrs urine for prot/cr Physical Examination - Vital Signs Temperature: 97.4 F Blood Pressure: 147/52 Pulse: 50 Respirations: 18 Pulse Ox (%): 93 - Physical Exam General: Alert, Oriented x3 HEENT: Atraumatic Neck: Supple, JVD not distended Respiratory: Clear to auscultation bilaterally, Normal air movement Cardiovascular: Normal pulses, Edema - Studies Laboratory Data (last 24 hrs) 12/17/17 05:10: Hgb 10.3 L D, Hct 29.6 L D 12/17/17 05:10: Sodium 138, Potassium 4.0, BUN 70 H, Creatinine 3.00 H, Glucose 125 H, Phosphorus 4.8 Microbiology Data (last 24 hrs): 12/17/17 01:20 Stool Occult Blood - Final Assessment And Plan - Current Problems (Diagnosis) (1) Chronic renal disease Onset Date: 09/02/17 Current Visit: No Status: Chronic (2) Diabetes mellitus Current Visit: No Status: Chronic - Plan A 72 Y/O woman with PMHx of DM for ~30yrs, with neuropathy and retinopathy, HTN and CKD IV was by Dr Fajardo for LE edema, anemia and eleavted RFT denied nausea, vomiting , diarrhea and constipation Pt had a prior episode of LANDON and hyperkalemia that required HD Today feels better Cr 3.0 Hb 10 now plan for EGD lasix to bid Epogen today F/U SPEP, UPEP, 24hrs urine for prot/cr Assessmnet and plan LANDON on CKD Cr baseline ~2.0 with proteinuria DM progression and fluid overload Renal diet adjust meds as per RFT Will send for SPEP, UPEP, K/l and UPC doesnt need DRAWER IN STITCH BONDING MACHINE at this time will reduce lasix to bid Acute anemia S/p PRBC Plan for EGD and colonoscopy iron panel and ferritin FRANSICO Low iron stores , will give IV iron HTN DM as per primary team Neuropay
--- NOTE | 2017-12-17 13:50 | ENDO RPT ---
[address], [address] EGD PROCEDURE REPORT EXAM DATE: 12/17/2017 PATIENT NAME: Nelia Amaro MR#: [id number] BIRTHDATE: 1945 ATTENDING: Luis Felipe Lay Dr STATUS: inpatient - [facility] LAB TECH: Dara Mata RN and Coni Lopez INDICATIONS: The patient is a 72 yr old Female here for an EGD due to anemia (hgb 7.3) and iron deficiency anemia PROCEDURE PERFORMED: EGD with biopsy MEDICATIONS: Per Anesthesia. TOPICAL ANESTHETIC: none CONSENT: The patient understands the risks and benefits of the procedure and understands that these risks include, but are not limited to: sedation, allergic reaction, infection, perforation and/or bleeding. Alternative means of evaluation and treatment include, among others: physical exam, x-rays, and/or surgical intervention. The patient elects to proceed with this endoscopic procedure. DESCRIPTION OF PROCEDURE: During intra-op preparation period all mechanical medical equipment was checked for proper function. Hand hygiene and appropriate measures for infection prevention was taken. Procedure, possible complications, and alternatives including but not limited to the possibility of bleeding, perforation, tear, infection, sepsis, need for surgery, need for blood transfusion, and anesthesia related complications were explained to the patient. After the risks, benefits and alternatives of the procedure were thoroughly explained, Informed consent was verified, confirmed and timeout was successfully executed by the treatment team. The patient was placed in the left lateral position. The patient was anesthetized with topical anesthesia. Through the anesthetized oropharyngeal area, the scope was passed without any difficulty. The Pentax EG-[id number] ([id number]) endoscope was introduced through the mouth and advanced to the third portion of the duodenum. Retroflexed views revealed no abnormalities. The gastroscope was then slowly withdrawn and removed. Moderate gastritis was found in the antrum. Multiple biopsies were obtained and sent to pathology. Small bowel biopsies obtained. ADVERSE EVENTS: There were no complications. IMPRESSIONS: 1. Moderate gastritis in the antrum, s/p biopsies 2. Small bowel biopsies obtained RECOMMENDATIONS: 1. await biopsy results 2. acid suppression therapy REPEAT EXAM: Luis Felipe Lay Dr eSigned: Luis Felipe Lay Dr 12/17/2017 1:04 PM cc: CPT CODES: ICD9 CODES: PATIENT NAME: Nelia Amaro MR#: [id number]
[2017-12-17] MEDS ORDERED: MORPHINE 4 MG/ML SYR IV PRN (18:33)
[2017-12-17] MEDS ORDERED: ONDANSETRON 4 MG/2 ML VIAL IV PRN (20:21)
[2017-12-17] MEDS ORDERED: ONDANSETRON 4 MG/2 ML VIAL ONE (20:31)
--- NOTE | 2017-12-17 20:45 | RAD REPORT ---
EXAM DESCRIPTION: RAD - Small Bowel Series - 12/17/2017 8:37 pm CLINICAL HISTORY: Dr rice Abdominal pain COMPARISON: Renal Ultrasound-Complete dated 12/15/2017 FINDINGS: Hydraulic Chair Assembler film shows a nonspecific bowel gas pattern. No obstruction or free air. No suspiciou s calcifications. Gastric size and mucosal fold pattern are normal. No delay in transit of contrast into the small florence l. Proximal small bowel to the level of jejunum is normal. Distal small bowel evaluation is not possi ble as the patient refused further imaging due to nausea and vomiting. No fluoroscopy was performed. Twenty images were obtained. IMPRESSION: Limited small bowel series was performed which showed no abnormality. Distal small bowel was not contrast opacified or assessed as the patient refused further imaging afte r the 3 hour marti.
[2017-12-17] MEDS: JUVEN PACKET PO SCH (21:00)
[2017-12-17] MEDS: DONEPEZIL HCL 5 MG TAB PO SCH (21:27)
[2017-12-17] MEDS: ATORVASTATIN 20 MG TAB PO SCH (21:28)
[2017-12-17] MEDS: SOD FERRIC GLUC COMPLX/SUCROSE 125 MG in NA CHLORIDE 0.9% 100 ML IV SCH (21:38)
--- NOTE | 2017-12-17 23:33 | PN ---
The patient's post transfusion hemoglobin is 10 g. She is alert and she subsequently underwent upper GI endoscopy. There is no active bleeding. She has evidence of gastritis. The patient will be re- evaluated in a.m. and if she is stable, the patient will be discharged with outpatient followup with the Nephrology Services. The patient subsequently might even need colonoscopy. EULALIA Voice ID: [id number] Report ID: [id number]
[2017-12-18 05:48] LABS: Albumin 2.9 g/dL (3.4-5.0); Phosphorus 5.5 mg/dL (2.5-4.9); Potassium 4.3 mmol/L (3.5-5.1)
[2017-12-18 05:49] LABS: Protime INR 1.09
[2017-12-18] MEDS: LEVOTHYROXINE SOD 0.112 MG TAB PO SCH (06:07)
[2017-12-18] MEDS: LEVOTHYROXINE SOD 0.025 MG TAB PO SCH (06:07)
[2017-12-18] MEDS: INSULIN -REGULAR HUMAN 50 UNIT/0.5 ML ML SQ SCH ×4 (07:30→21:55)
[2017-12-18] MEDS: METOPROLOL XL 25 MG TAB PO SCH ×2 (09:00→09:28)
[2017-12-18] MEDS: JUVEN PACKET PO SCH ×2 (09:00→20:26)
[2017-12-18] MEDS: AMLODIPINE 5 MG TAB PO SCH (09:27)
[2017-12-18] MEDS: FUROSEMIDE 40 MG/4 ML VIAL IV SCH (09:27)
[2017-12-18] MEDS: HYDRALAZINE HCL 25 MG TABLET PO SCH ×2 (09:27→20:27)
[2017-12-18] MEDS: GABAPENTIN 300 MG CAP PO SCH ×2 (09:27→20:27)
[2017-12-18] MEDS: SOD FERRIC GLUC COMPLX/SUCROSE 125 MG in NA CHLORIDE 0.9% 100 ML IV SCH (14:00)
--- NOTE | 2017-12-18 14:21 | P.PN ---
Subjective Date of Service: 12/18/17 Chief Complaint: Sent for abnromal labs and LE edema Pt with Hx od DM and CKD Cr ~2.0, eGFR ~17 sent by her PCP for LE edema and abnormal labs Denied nausea, vomiting, diarrhea and constipation, chest pain, palpitation Today no new complaints Cr 3.1 Hb 10 now IV iron D2 F/U EGD results lasix to po bid F/U SPEP, UPEP, 24hrs urine for prot/cr Physical Examination - Vital Signs Temperature: 97.8 F Blood Pressure: 138/55 Pulse: 58 Respirations: 16 Pulse Ox (%): 97 - Physical Exam General: Oriented x3 HEENT: Atraumatic Neck: Supple Respiratory: Clear to auscultation bilaterally Cardiovascular: No edema, Regular rate/rhythm, Normal S1 S2 - Studies Laboratory Data (last 24 hrs) 12/18/17 05:22: PT 12.9 H, INR 1.09, APTT 30.0 12/18/17 05:22: Sodium 137, Potassium 4.3, BUN 64 H, Creatinine 3.10 H, Glucose 139 H, Phosphorus 5.5 H Assessment And Plan - Current Problems (Diagnosis) (1) Chronic renal disease Onset Date: 09/02/17 Current Visit: No Status: Chronic (2) Diabetes mellitus Current Visit: No Status: Chronic - Plan A 72 Y/O woman with PMHx of DM for ~30yrs, with neuropathy and retinopathy, HTN and CKD IV was by Dr Fajardo for LE edema, anemia and eleavted RFT denied nausea, vomiting , diarrhea and constipation Pt had a prior episode of LANDON and hyperkalemia that required HD Today no new complaints Cr 3.1 Hb 10 now IV iron D2 F/U EGD results lasix to po bid F/U SPEP, UPEP, 24hrs urine for prot/cr Assessment and plan LANDON on CKD Cr baseline ~2.0 with proteinuria DM progression and fluid overload Renal diet adjust meds as per RFT Will send for SPEP, UPEP, K/l and UPC doesn't need LINUX SYSTEMS ADMINISTRATOR at this time Acute anemia S/p PRBC S/p EGD iron panel and ferritin FRANSICO Low iron stores , will give IV iron HTN DM as per primary team Neuropeugene
--- NOTE | 2017-12-18 14:45 | PN ---
The patient is very alert today. Abdomen is soft, nontender. Afebrile. The patient's blood sugar i s normal. I sat down and explained about her situation, kidney status. The patient is in the proces s of further workup. After rounds with renal service, it will be decided whether she can be discharg ed and followed up as an outpatient. SANDRO/MARTY Voice ID: [id number] Report ID: [id number]
[2017-12-18] MEDS: FUROSEMIDE 40 MG TABLET PO SCH (17:24)
[2017-12-18] MEDS: DONEPEZIL HCL 5 MG TAB PO SCH (20:27)
[2017-12-18] MEDS: ATORVASTATIN 20 MG TAB PO SCH (20:27)
[2017-12-19] MEDS: LEVOTHYROXINE SOD 0.025 MG TAB PO SCH (06:11)
[2017-12-19] MEDS: LEVOTHYROXINE SOD 0.112 MG TAB PO SCH (06:12)
[2017-12-19 06:45] VITALS: TEMP 98.5
[2017-12-19 07:12] LABS: Albumin 2.7 g/dL (3.4-5.0); Potassium 4.1 mmol/L (3.5-5.1)
[2017-12-19] MEDS: INSULIN -REGULAR HUMAN 50 UNIT/0.5 ML ML SQ SCH ×2 (07:30→12:43)
[2017-12-19 07:33] LABS: Urine Protein/Creatinine Ratio 1.14 ratio (<0.15)
[2017-12-19] MEDS: JUVEN PACKET PO SCH (09:00)
[2017-12-19 09:22] VITALS: BP 145/65
[2017-12-19] MEDS: GABAPENTIN 300 MG CAP PO SCH (09:47)
[2017-12-19] MEDS: HYDRALAZINE HCL 25 MG TABLET PO SCH (09:47)
[2017-12-19] MEDS: FUROSEMIDE 40 MG TABLET PO SCH (09:48)
[2017-12-19] MEDS: AMLODIPINE 5 MG TAB PO SCH (09:48)
[2017-12-19] MEDS: METOPROLOL XL 25 MG TAB PO SCH (09:48)
[2017-12-19 13:11] VITALS: O2SAT 92
[2017-12-19] MEDS: SOD FERRIC GLUC COMPLX/SUCROSE 125 MG in NA CHLORIDE 0.9% 100 ML IV SCH (14:21)
--- NOTE | 2017-12-19 16:25 | P.PN ---
Subjective Date of Service: 12/19/17 Chief Complaint: Sent for abnromal labs and LE edema Pt with Hx od DM and CKD Cr ~2.0, eGFR ~17 sent by her PCP for LE edema and abnormal labs Denied nausea, vomiting, diarrhea and constipation, chest pain, palpitation Today no new complaints Cr stable Hb stable IV iron D3 F/U biopsy results lasix to po bid F/U SPEP, UPEP, and K.L UPC 1.1 Remove fley and TOV Physical Examination - Vital Signs Temperature: 98.5 F Blood Pressure: 145/65 Pulse: 61 Respirations: 16 Pulse Ox (%): 93 - Physical Exam General: Oriented x3 HEENT: Atraumatic Neck: Supple Respiratory: Clear to auscultation bilaterally Cardiovascular: Edema (trace ) - Studies Laboratory Data (last 24 hrs) 12/19/17 06:04: Sodium 137, Potassium 4.1, BUN 73 H, Creatinine 3.30 H, Glucose 146 H, Phosphorus 5.0 H Assessment And Plan - Current Problems (Diagnosis) (1) Chronic renal disease Onset Date: 09/02/17 Current Visit: No Status: Chronic (2) Diabetes mellitus Current Visit: No Status: Chronic - Plan A 72 Y/O woman with PMHx of DM for ~30yrs, with neuropathy and retinopathy, HTN and CKD IV was by Dr Fajardo for LE edema, anemia and eleavted RFT denied nausea, vomiting , diarrhea and constipation Pt had a prior episode of LANDON and hyperkalemia that required HD Today no new complaints Cr stable Last HB 10 from 12/17 , rpt cbc IV iron D23 F/U EGD results lasix to po bid F/U SPEP, UPEP, Assessment and plan LANDON on CKD Cr baseline ~2.0 with proteinuria DM progression and fluid overload Renal diet adjust meds as per RFT Will send for SPEP, UPEP, K/l and UPC doesn't need SHOW HORSE DRIVER at this time UOC 1.1, 24hr urine 900mg Acute anemia S/p PRBC S/p EGD FRANSICO on IV iron HTN DM as per primary team Neuropath
[2017-12-19] MEDS ORDERED: FUROSEMIDE 40 MG/4 ML VIAL IV SCH (17:00)
[2017-12-20 20:25] LABS: Alpha-1-Globulins 0.4 g/dL (0.2-0.3); Gamma Globulins 1.6 g/dL (0.8-1.7); INTERPRETATION REPORT
[2017-12-24 18:47] LABS: Beta Globulin 24 HR Urine 20 %; Creatinine 24 Hour Urine 0.77 g/24 h (0.50-2.15); Gamma Globulin, 24hr Urine 19 %; Interpretation: REPORT; Urine Alpha-2-Globulins, 24 Hr 13 %; Urine PEP Abn Protein Band1 REPORT; Urine Protein/Creat Ratio 24Hr 1382 mg/g creat (<115); Urine Total Volume 24 Hours 1000 mL
--- NOTE | 2018-01-06 04:58 | DS ---
Date of Discharge: 12/19/2017 Final Diagnoses: 1.Severe anemia. 2.Helicobacter pylori gastritis documented on the biopsy. 3.Hsgog-pf-itqkomh renal failure with hyperkalemia. 4.Hypertension. 5.Hyperlipidemia. 6.Type 2 diabetes, on insulin. 7.Dementia. Hospital Course: This patient was admitted because of severe anemia as well as hyperkalemia. The greer [place]'s admitting hemoglobin was less than 7. After transfusion of 1 unit, it was 7.3. Her BUN was 81, creatinine 3.3. The patient after admission had a second unit of packed RBC. The patient was se en by Dr. Lay as part of the GI evaluation for her anemia. Endoscopy showed evidence of biopsy-pr oven Helicobacter pylori gastritis. The patient's GI consultation did not reveal any malignant proce ss. The patient's hyperkalemia got improved. The patient was seen by Renal Service. The patient, o n the day of discharge, was stable. At this point, she was discharged home with advice to follow up with Nephrology Services for continued followup on her severe renal failure. Laboratory Data: Please refer to the chart. SANDRO/MARTY Voice ID: [id number] Report ID: [id number]
== END 2017-12-19 17:51 | disposition home or self-care (01) | DRG 812 ==
LOC: 4TH 17:33
PROVIDERS: ADMIT Internal Medicine; ATTEND Internal Medicine
PROC: 30233N1 Transfusion of Nonautologous Red Blood Cells into Peripheral Vein, Percutaneous Approach (ICD-10-PCS; 2017-12-16)
PROC: 0DB88ZX Excision of Small Intestine, Via Natural or Artificial Opening Endoscopic, Diagnostic (ICD-10-PCS; 2017-12-17)
PROC: 0DB78ZX Excision of Stomach, Pylorus, Via Natural or Artificial Opening Endoscopic, Diagnostic (ICD-10-PCS; principal; 2017-12-17 12:00)
DX: D64.9 Anemia, unspecified (principal); N17.9 Acute kidney failure, unspecified; N18.4 Chronic kidney disease, stage 4 (severe); E87.5 Hyperkalemia; E03.9 Hypothyroidism, unspecified; E78.5 Hyperlipidemia, unspecified; F03.90 Unspecified dementia, unspecified severity, without behavioral disturbance, psychotic disturbance, mood disturbance, and anxiety; I12.9 Hypertensive chronic kidney disease with stage 1 through stage 4 chronic kidney disease, or unspecified chronic kidney disease; E11.22 Type 2 diabetes mellitus with diabetic chronic kidney disease; E11.40 Type 2 diabetes mellitus with diabetic neuropathy, unspecified; E11.319 Type 2 diabetes mellitus with unspecified diabetic retinopathy without macular edema; D50.9 Iron deficiency anemia, unspecified; R80.9 Proteinuria, unspecified; E87.70 Fluid overload, unspecified; Z79.4 Long term (current) use of insulin; K29.50 Unspecified chronic gastritis without bleeding; B96.81 Helicobacter pylori [H. pylori] as the cause of diseases classified elsewhere
CPT/HCPCS: 36415; 71045; 74250; 76770; 80069; 82274; 82570; 82607; 82728; 82746; 82962; 83540; 83883; 83970; 84156; 84165; 84166; 84439; 84443; 84466; 85014; 85018; 85044; 85610; 85730; 86334; 86335; 86850; 86900; 86901; 88305; 88312; 94640; J0885; J2405; J2916; J7030; P9016

== ENCOUNTER 2018-03-30 07:31 | Day surgery (SDC) | payer OTHER ==
[2018-03-29 16:17] LABS: Absolute Lymphocytes (CBC) 1.4 K/uL (0.7-4.9); Absolute Monocytes 0.6 K/uL (0.1-1.3); Absolute Neutrophil 7.6 K/uL (1.8-8.0); Basophils % 0.7 % (0-1.3); Eosinophils % 4.6 % (0-4.4); Lymphocytes % 13.9 % (15.3-44.8); MPV 8.4 fL (7.6-11.3); Monocytes % 5.6 % (3.3-12.3); RBC Red Blood Cell Count 2.48 M/uL (3.86-4.86)
[2018-03-30] MEDS ORDERED: NA CHLORIDE 0.9% 500 ML ONE ×2 (08:10→12:16)
[2018-03-30 13:20] VITALS: BMI 39.6
[2018-03-30 13:25] VITALS: BP 123/35; TEMP 98.6; O2SAT 94
[2018-03-30 15:43] LABS: Hematocrit 28.5 % (36.0-45.0)
== END 2018-03-30 15:45 | disposition home or self-care (01) ==
LOC: DS 07:31
PROVIDERS: ATTEND Internal Medicine Gastroenterology
DX: D50.9 Iron deficiency anemia, unspecified (principal)
CPT/HCPCS: 36415 ×2; 36430; 85014; 85018; 85025; 86850; 86900; 86901; P9016 ×2

== ENCOUNTER 2018-05-04 06:52 | Day surgery (SDC) | payer OTHER ==
--- OUTSIDE RECORDS SUMMARY | 2018-05-04 06:55 | XMS REPORT ---
:1945 [facility] Address [address] [place] [address] Dr. Bridges [address] [place] [id number] Care Team Providers Name Role Phone Unavailable Unavailable Unavailable Problems This patient has no known problems. Allergies, Adverse Reactions, Alerts This patient has no known allergies or adverse reactions. Medications This patient has no known medications.
[2018-05-04] MEDS ORDERED: SOD FERRIC GLUC COMPLX/SUCROSE 250 MG in NA CHLORIDE 0.9% 250 ML IV ONE (09:00)
[2018-05-04 11:59] VITALS: BP 132/39; TEMP 97; O2SAT 93; BMI 30.5
== END 2018-05-04 10:25 | disposition home or self-care (01) ==
LOC: DS 06:52
PROVIDERS: ATTEND Internal Medicine
DX: D50.9 Iron deficiency anemia, unspecified (principal); N18.4 Chronic kidney disease, stage 4 (severe)
CPT/HCPCS: 96365; 96366; J2916

== ENCOUNTER 2018-05-31 16:50 | Emergency (ER) | payer OTHER ==
--- OUTSIDE RECORDS SUMMARY | 2018-05-31 16:52 | XMS REPORT ---
:1945 [facility] Address [address] [place] [address] Dr. Bridges [address] [place] [id number] Care Team Providers Name Role Phone Unavailable Unavailable Unavailable Problems This patient has no known problems. Allergies, Adverse Reactions, Alerts This patient has no known allergies or adverse reactions. Medications This patient has no known medications.
[2018-05-31 17:45] LABS: Absolute Lymphocytes (CBC) 0.9 K/uL (0.7-4.9); Absolute Monocytes 0.6 K/uL (0.1-1.3); Absolute Neutrophil 6.7 K/uL (1.8-8.0); Basophils % 1.2 % (0-1.3); Eosinophils % 4.6 % (0-4.4); Hematocrit 26.2 % (36.0-45.0); Lymphocytes % 10.3 % (15.3-44.8); MPV 8.7 fL (7.6-11.3); Monocytes % 6.4 % (3.3-12.3); RBC Red Blood Cell Count 2.66 M/uL (3.86-4.86)
[2018-05-31 17:48] LABS: Protime INR 1.16
--- NOTE | 2018-05-31 17:53 | RAD REPORT ---
EXAM DESCRIPTION: Luca Single View05/31/2018 5:45 pm CLINICAL HISTORY: Shortness of breath COMPARISON: December 2017 FINDINGS: Mild bilateral pulmonary opacities. The heart is mildly enlarged IMPRESSION: Mild CHF
[2018-05-31 18:28] LABS: ALT/SGPT 23 U/L (12-78); AST/SGOT 20 U/L (15-37); Albumin 3.1 g/dL (3.4-5.0); Alkaline Phosphatase 96 U/L (45-117); BUN Blood Urea Nitrogen 65 mg/dL (7-18); Bicarbonate 20 mmol/L (21-32); Bilirubin Direct 0.1 mg/dL (0-0.2); Bilirubin Total 0.4 mg/dL (0.2-1.0); Glucose Level 136 mg/dL (74-106); NT PRO-BNP 4075 pg/mL (<125); Potassium 4.6 mmol/L (3.5-5.1); Protein, Total 8.2 g/dL (6.4-8.2); Sodium Level 144 mmol/L (136-145); Troponin (Emerg Dept Use Only) < 0.02 ng/mL (0.0-0.045)
--- NOTE | 2018-05-31 20:11 | ER ---
Nurse's Notes [facility] Name: Nelia Amaro Age: 72 yrs Sex: Female : 1945 Arrival Date: 05/31/2018 Time: 16:51 Bed 28 Private MD: Duglas Mascorro R Diagnosis: Sinus Bradycardia;Chronic Kidney Disease;Anemia;Dyspnea Presentation: 05/31 16:54 Presenting complaint: Patient states: pt was sent from Dr. Mascorro clinic for HR of 45; i hj have SOB; denies chest pain; reports dizziness;. Transition of care: patient was not received from another setting of care. Transition of care: patient was received from another setting of care (ambulatory primary care physician practice). Onset of symptoms was May 31, 2018. Risk Assessment: Do you want to hurt yourself or someone else? Patient reports no desire to harm self or others. Initial Sepsis Screen: Does the patient meet any 2 criteria? No. Patient's initial sepsis screen is negative. Does the patient have a suspected source of infection? No. Patient's initial sepsis screen is negative. Care prior to arrival: None. 16:54 Method Of Arrival: Ambulatory 16:54 Acuity: SIAK 3 hj Triage Assessment: 16:59 General: Appears in no apparent distress. uncomfortable, Behavior is calm, cooperative, hj appropriate for age. Pain: Denies pain. Cardiovascular: Capillary refill < 3 seconds Patient's skin is warm and dry. Historical: - Allergies: 16:59 Iodinated Contrast- Oral and IV Dye; hj - Home Meds: 16:59 Tresiba FlexTouch U-100 100 unit/mL (3 mL) subcutaneous inpn [Active]; levothyroxine hj 137 mcg tab 1 tab once daily [Active]; hydralazine 50 mg Oral tab 1 tab daily [Active]; amlodipine 5 mg tab 1 tab once daily [Active]; furosemide 40 mg Oral tab 1 tab daily [Active]; gabapentin 300 mg oral cap 1 cap 3 times per day [Active]; atorvastatin 20 mg oral tab 1 tab once daily [Active]; mesalamine oral oral once daily [Active]; Januvia 25 mg oral tab [Active]; metoprolol tartrate 25 mg Oral tab 1 tab once daily [Active]; Humalog 100 unit/mL Sub-Q crtg [Active]; 19:22 Aricept 10 mg Oral tab 1 tab once daily [Active]; vit d3 1000 units [Active]; mg2 - PMHx: 16:59 Diabetes - NIDDM; Hyperlipidemia; Hypertension; Hypothyroidism; hj - PSHx: 16:59 shoulder surgery; wrist surgery; hj - Immunization history:: Adult Immunizations up to date. - Social history:: Smoking status: Patient/guardian denies using tobacco, Patient/guardian denies using alcohol. - Ebola Screening: : Patient negative for fever greater than or equal to 101.5 degrees Fahrenheit, and additional compatible Ebola Virus Disease symptoms Patient denies exposure to infectious person Patient denies travel to an Ebola-affected area in the 21 days before illness onset. Screenin:00 Abuse screen: Denies threats or abuse. Denies injuries from another. Nutritional hj screening: No deficits noted. Tuberculosis screening: No symptoms or risk factors identified. Fall Risk Assessment: 17:00 Pain: Denies pain. Pain does not radiate. Pain began. hj 17:38 General: Appears in no apparent distress. comfortable, Behavior is calm, cooperative. mg2 Neuro: Level of Consciousness is awake, alert, obeys commands, Oriented to person, place, time, situation. Cardiovascular: Reports shortness of breath, Capillary refill < 3 seconds Patient's skin is warm and dry. Respiratory: Airway is patent Respiratory effort is even, unlabored, Respiratory pattern is regular, symmetrical. GI: No signs and/or symptoms were reported involving the gastrointestinal system. : No signs and/or symptoms were reported regarding the genitourinary system. EENT: No signs and/or symptoms were reported regarding the EENT system. Derm: Skin is intact, is healthy with good turgor, Skin is pink, warm \T\ dry. normal. Musculoskeletal: Circulation, motion, and sensation intact. Capillary refill < 3 seconds. 20:14 Reassessment: patient informed about the need for transfer. patient agreed. mg2 21:21 Reassessment: report called to JENNYFER Galarza of [facility]. mg2 Vital Signs: 17:00 BP 123 / 44; Pulse 48; Resp 20; Temp 96.9(TE); Pulse Ox 92% on R/A; Weight 82.55 kg; hj Height 4 ft. 10 in. (147.32 cm); Pain 0/10; 17:00 Pulse Ox 97% on 3 lpm NC; hj 17:47 BP 131 / 50; Pulse 45; Resp 18; Pulse Ox 99% on 3 lpm NC; Pain 0/10; mg2 18:58 BP 128 / 47; Pulse 46; Resp 18; Pulse Ox 98% on 3 lpm NC; Pain 0/10; mg2 21:05 BP 126 / 52; Pulse 48; Resp 18; Pulse Ox 97% on 3 lpm NC; mg2 22:32 BP 122 / 52; Pulse 45; Resp 18; Pulse Ox 100% on 3 lpm NC; Pain 0/10; mg2 17:00 Body Mass Index 38.04 (82.55 kg, 147.32 cm) hj ED Course: 16:51 Patient arrived in ED. as 16:52 Duglas Mascorro MD is Private Physician. as 16:55 Triage completed. hj 17:00 Arm band placed on right wrist. hj 17:00 Patient has correct armband on for positive identification. Placed in gown. Bed in low hj position. Call light in reach. Side rails up X 1. Adult w/ patient. plant utility person on. Pulse ox on. NIBP on. 17:00 Patient maintains SpO2 saturation greater than 95% on room air. hj 17:05 EKG done, by roving technician. reviewed by Luis Felipe Waters MD. [facility] 17:14 Boston Gaytan PA is PHCP. jmm 17:14 Luis Felipe Waters MD is Attending Physician. jmm 17:30 Dominick Kee, JENNYFER is Primary Nurse. mg2 17:43 X-ray completed. Portable x-ray completed in exam room. Patient tolerated procedure ml well. 17:46 XRAY Chest (1 view) In Process Unspecified. EDMS 17:48 No provider procedures requiring assistance completed. Inserted saline lock: 20 gauge mg2 in right hand, using aseptic technique. Blood collected. 22:33 Patient transferred, IV remains in place. mg2 Administered Medications: No medications were administered Outcome: 20:11 ER care complete, transfer ordered by . jmm 22:33 Transferred by ground EMS to [facility], Transfer form completed. mg2 22:33 Condition: good 22:33 Instructed on the need for transfer, Demonstrated understanding of instructions. 22:35 Patient left the ED. mg2 Signatures: Dispatcher [employer] EDMS Boston Gaytan PA PA jmm Martinez, Amelia as Lopez, Lucius Combs RN RN Dominick Kee RN RN [facility] Katherine Rosales sm3 Corrections: (The following items were deleted from the chart) 17: 17:00 BP 123 / 44; Pulse 48bpm; Resp 20bpm; Pulse Ox 92% RA; Temp 96.9F Temporal; 82.55 hj kg; Height 4 ft. 10 in.; BMI: 38.0; Pain 0/10; hj 17:07 17:00 Pulse Ox 95% RA; hj hj 19:23 16:59 Home Meds: Aricept 10 mg Oral tab 1 tab once daily; mg2
--- NOTE | 2018-05-31 20:11 | EDPHYS ---
Physician Documentation [facility] Name: Nelia Amaro Age: 72 yrs Sex: Female : 1945 Arrival Date: 05/31/2018 Time: 16:51 Bed 28 Private MD: Duglas Mascorro R ED Physician Luis Felipe Waters HPI: 05/31 17:59 This 72 yrs old Female presents to ER via Ambulatory with complaints of jmm Irregular Pulse, Shortness Of Breath. 17:59 The patient presents with a history of irregular heart beat. Onset: The jmm symptoms/episode began/occurred gradually, 3 day(s) ago. Associated signs and symptoms: Pertinent positives: chest pain, SOB. This is a 72 year old female with a history of dm, hlp, htn , that presents to the ED with complaints of palpitations, shortness of breath beginning approx 3 days ago. Patient states she has been unable to sleep over the past 3 days. Patient states she is scheduled for a blood transfusion due to anemia from chronic kidney disease. . Historical: - Allergies: 16:59 Iodinated Contrast- Oral and IV Dye; hj - Home Meds: 16:59 Tresiba FlexTouch U-100 100 unit/mL (3 mL) subcutaneous inpn [Active]; levothyroxine hj 137 mcg tab 1 tab once daily [Active]; hydralazine 50 mg Oral tab 1 tab daily [Active]; amlodipine 5 mg tab 1 tab once daily [Active]; furosemide 40 mg Oral tab 1 tab daily [Active]; gabapentin 300 mg oral cap 1 cap 3 times per day [Active]; atorvastatin 20 mg oral tab 1 tab once daily [Active]; mesalamine oral oral once daily [Active]; Januvia 25 mg oral tab [Active]; metoprolol tartrate 25 mg Oral tab 1 tab once daily [Active]; Humalog 100 unit/mL Sub-Q crtg [Active]; 19:22 Aricept 10 mg Oral tab 1 tab once daily [Active]; vit d3 1000 units [Active]; mg2 - PMHx: 16:59 Diabetes - NIDDM; Hyperlipidemia; Hypertension; Hypothyroidism; hj - PSHx: 16:59 shoulder surgery; wrist surgery; hj - Immunization history:: Adult Immunizations up to date. - Social history:: Smoking status: Patient/guardian denies using tobacco, Patient/guardian denies using alcohol. - Ebola Screening: : Patient negative for fever greater than or equal to 101.5 degrees Fahrenheit, and additional compatible Ebola Virus Disease symptoms Patient denies exposure to infectious person Patient denies travel to an Ebola-affected area in the 21 days before illness onset. ROS: 17:59 Constitutional: Negative for fever, chills, and weight loss. jmm 17:59 Abdomen/GI: Negative for abdominal pain, nausea, vomiting, diarrhea, and constipation. 17:59 Cardiovascular: Positive for chest pain, palpitations. 17:59 Respiratory: Positive for shortness of breath. 17:59 All other systems are negative. Exam: 17:59 Head/Face: atraumatic. Eyes: EOMI, no conjunctival erythema appreciated ENT: Moist [facility] Mucus Membranes Neck: Trachea midline, Supple Chest/axilla: Normal chest wall appearance and motion. 17:59 Respiratory: Normal respirations, no respiratory distress appreciated Abdomen/GI: Non distended, soft Back: Normal ROM Skin: General appearance color normal MS/ Extremity: Moves all extremities, no obvious deformities appreciated, no edema noted to the lower extremities Neuro: Awake and alert, normal gait Psych: Behavior is normal, Mood is normal, Patient is cooperative and pleasant 17:59 Constitutional: The patient appears in no acute distress, alert, awake. 17:59 Cardiovascular: Rate: bradycardic, Rhythm: regular. Vital Signs: 17:00 BP 123 / 44; Pulse 48; Resp 20; Temp 96.9(TE); Pulse Ox 92% on R/A; Weight 82.55 kg; hj Height 4 ft. 10 in. (147.32 cm); Pain 0/10; 17:00 Pulse Ox 97% on 3 lpm NC; hj 17:47 BP 131 / 50; Pulse 45; Resp 18; Pulse Ox 99% on 3 lpm NC; Pain 0/10; mg2 18:58 BP 128 / 47; Pulse 46; Resp 18; Pulse Ox 98% on 3 lpm NC; Pain 0/10; mg2 21:05 BP 126 / 52; Pulse 48; Resp 18; Pulse Ox 97% on 3 lpm NC; mg2 22:32 BP 122 / 52; Pulse 45; Resp 18; Pulse Ox 100% on 3 lpm NC; Pain 0/10; mg2 17:00 Body Mass Index 38.04 (82.55 kg, 147.32 cm) MDM: 17:30 Patient medically screened. [facility] 19:59 Data reviewed: vital signs, nurses notes. Counseling: I had a detailed discussion with [facility] the patient and/or guardian regarding: the historical points, exam findings, and any diagnostic results supporting the discharge/admit diagnosis, radiology results, the need to transfer to another facility. ED course: . 20:07 ED course: I discussed the patient with Dr. Cruz whom evaluated the ekg with a [facility] finding of sinus bardycardia and recommended transfer due to the need for EP and pacemaker. I discussed the patient with Dr. Crespo whom recommended consultation with EP. I discussed the patient with Dr. Bland whom accepted transfer. . 05/31 17:23 Order name: Basic Metabolic Panel; Complete Time: 18:52 [facility] 05/31 17:23 Order name: CBC with Diff; Complete Time: 17:52 [facility] 05/31 17:23 Order name: LFT's; Complete Time: 18:52 [facility] 05/31 17:23 Order name: Magnesium; Complete Time: 18:52 [facility] 05/31 17:23 Order name: NT PRO-BNP; Complete Time: 18:52 [facility] 05/31 17:23 Order name: PT-INR; Complete Time: 17:52 [facility] 05/31 17:23 Order name: Troponin (emerg Dept Use Only); Complete Time: 18:52 [facility] 05/31 17:23 Order name: XRAY Chest (1 view); Complete Time: 17:58 [facility] 05/31 17:23 Order name: EKG; Complete Time: 17:24 [facility] 05/31 17:23 Order name: Cardiac monitoring; Complete Time: 17:30 [facility] 05/31 17:23 Order name: EKG - Nurse/Tech; Complete Time: 17:30 [facility] 05/31 17:23 Order name: IV Saline Lock; Complete Time: 17:30 [facility] 05/31 17:53 Order name: Type And Screen [facility] 05/31 17:53 Order name: Type and Screen; Complete Time: 19:48 [facility] 05/31 17:23 Order name: Labs collected and sent; Complete Time: 17:31 [facility] 05/31 17:23 Order name: O2 Per Protocol; Complete Time: 17:31 [facility] 05/31 17:23 Order name: O2 Sat Monitoring; Complete Time: 17:31 [facility] 05/31 17:31 Order name: Vital Signs; Complete Time: 17:47 [facility] Administered Medications: No medications were administered Disposition: 06/01 06:52 Co-signature as Attending Physician, Luis Felipe FLANNERY I agree with the assessment and wa plan of care. Disposition: 05/31/18 20:11 Transfer ordered to [facility]. Diagnosis are Sinus Bradycardia, Chronic Kidney Disease, Anemia, Dyspnea. - Reason for transfer: Higher level of care. - Accepting physician is Edwina. - Condition is Stable. - Problem is new. - Symptoms are unchanged. Signatures: Dispatcher [employer] EDMS Boston Gaytan PA PA jmm Joaquin, Henry, RN RN hj Appiah, William, MD MD wa Gardose, Michele, RN RN mg2 Corrections: (The following items were deleted from the chart) 05/31 19:23 16:59 Home Meds: Aricept 10 mg Oral tab 1 tab once daily; mg2 22:35 20:11 05/31/2018 20:11 Transfer ordered to [facility]. Diagnosis is mg2 Sinus Bradycardia; Chronic Kidney Disease; Anemia; Dyspnea. Reason for transfer: Higher level of care. Accepting physician is Edwina. Condition is Stable. Problem is new. Symptoms are unchanged. [facility]
--- NOTE | 2018-05-31 22:05 | EKG ---
Test Date: 2018-05-31 Test Time: 16:56:55 Financial Cost Analyst: KRISHAN MEASUREMENT RESULTS: Intervals: Rate: 46 MO: 196 QRSD: 148 QT: 564 QTc: 493 [place]: P: 49 MO: 196 QRS: 135 T: 42 INTERPRETIVE STATEMENTS: Marked sinus bradycardia Right axis deviation Left bundle branch block Abnormal ECG Compared to ECG 11/05/2016 08:22:44 Right-axis deviation now present Sinus rhythm no longer present Electronically Signed On 05-31-18 22:04:54 CDT by Edenilson Cruz
[2018-06-01 01:12] VITALS: TEMP 96.9
[2018-06-01 01:13] VITALS: BP 122/52; O2SAT 100
== END 2018-05-31 22:35 | disposition short-term general hospital (02) ==
LOC: ER 16:50
DX: R00.1 Bradycardia, unspecified (principal); N18.9 Chronic kidney disease, unspecified; D64.9 Anemia, unspecified; R06.02 Shortness of breath; R07.9 Chest pain, unspecified; Z91.041 Radiographic dye allergy status; Z79.4 Long term (current) use of insulin
CPT/HCPCS: 36415; 71045; 80048; 80076; 83735; 83880; 84484; 85025; 85610; 86850; 86900; 86901; 93005; 99285

== ENCOUNTER 2018-08-05 21:39 | Inpatient (IN) | payer OTHER ==
--- OUTSIDE RECORDS SUMMARY | 2018-08-05 21:42 | XMS REPORT | Clinical Summary ---
:1945 Author Organization [facility] Address [address] [place] [address] Care Team Providers Name Role Phone Renato Sanchezin Unavailable Allergies Active Allergy Reactions Severity Noted Date Comments Iodine And Iodide Containing Products 06/01/2018 Medications Medication Sig Dispensed Refills Start End Date Status Date levothyroxine Take 137 mcg by 0 Active (SYNTHROID, mouth Every LEVOTHROID) 137 MCG morning on an tablet empty stomach. gabapentin Take 300 mg by 0 Active (NEURONTIN) 300 MG mouth 2 (two) capsule times daily . atorvastatin Take 20 mg by 0 Active (LIPITOR) 20 MG mouth daily. tablet mesalamine (LIALDA) Take 1,200 mg by 0 Active 1.2 gram EC tablet mouth 2 (two) times daily . cholecalciferol Take 1,000 Units 0 Active (VITAMIN D3) 1,000 by mouth daily. unit tablet donepezil (ARICEPT) Take 10 mg by 0 Active 10 MG tablet mouth nightly. insulin lispro Inject 8 Units 0 Active (HUMALOG) 100 subcutaneously unit/mL injection After dinner only if needed . amLODIPine Take 1 tablet (10 0 Active (NORVASC) 10 MG mg total) by mouth 9 tablet daily. hydrALAZINE Take 1 tablet (100 0 Active (APRESOLINE) 100 MG mg total) by mouth 9 tablet daily. fluticasone 1 spray by Nasal 9.9 mL 0 06/10/19 Active (FLONASE) 50 route daily. 9 20 mcg/actuation nasal spray furosemide (LASIX) Take 1.5 tablets 30 tablet 0 Active 40 MG tablet (60 mg total) by 9 mouth daily. hydrALAZINE Take 5 mg by mouth 0 06/10/19 Discontinued (APRESOLINE) 10 MG daily. 19 tablet amLODIPine Take 5 mg by mouth 0 06/10/19 Discontinued (NORVASC) 10 MG daily. 19 tablet furosemide (LASIX) Take 40 mg by 0 06/10/19 Discontinued 40 MG tablet mouth daily. 19 SITagliptin Take 25 mg by 0 06/10/19 Discontinued (JANUVIA) 25 MG mouth daily. 19 tablet metoprolol Take 25 mg by 0 06/10/19 Discontinued (TOPROL-XL) 25 MG mouth daily. 19 24 hr tablet furosemide (LASIX) Take 1.5 tablets 30 tablet 0 06/10/19 Discontinued 40 MG tablet (60 mg total) by 9 19 mouth daily. cefePIME (MAXIPIME) Inject 1 g 0 06/13/19 MBP 1 g in 100 mL intravenously 9 19 NS daily for 3 days. Active Problems Problem Noted Date Acute on chronic heart failure 06/01/2018 Stage 4 chronic kidney disease 06/01/2018 Abnormal stress test 06/01/2018 Sinus bradycardia 06/01/2018 Other specified hypothyroidism 06/01/2018 Type 2 diabetes mellitus without complication, with long-term current use of insulin Encounters Date Type Specialty Care Team Description 06/01/2018 Orders Only General Internal Medicine 06/01/2018 Travel 05/31/2018 - Hospital Encounter Cardiology Anel Crespo Abnormal stress test (Primary Dx); 06/09/2018 Noemi Burnham, Acute on chronic heart failure, unspecified heart failure type (HCC); Sinus bradycardia; Analy, Stage 4 chronic kidney disease (HCC); Shubham Campuzano, Type 2 diabetes mellitus without complication, with long -term current use of insulin (HCC) MD after 08/04/2017 Social History Tobacco Use Types Packs/Day Years Used Date Never Smoker Smokeless Tobacco: Never Used Sex Assigned at Date Recorded Not on file Job Start Date Occupation Industry Not on file Not on file Not on file Travel History Travel Start Travel End No recent travel history available. Last Filed Vital Signs Vital Sign Reading Time Taken Blood Pressure 135/61 06/09/2018 11:40 AM CDT Pulse 63 06/09/2018 11:40 AM CDT Temperature 36.6 C (97.8 F) 06/09/2018 6:58 AM CDT Respiratory Rate 18 06/09/2018 11:40 AM CDT Oxygen Saturation 94% 06/09/2018 11:40 AM CDT Inhaled Oxygen Concentration - - Weight 83.2 kg (183 lb 6.8 oz) 06/08/2018 9:18 AM CDT Height 147.3 cm (4' 10") 06/01/2018 12:04 AM CDT Body Mass Index 38.34 06/08/2018 9:18 AM CDT Plan of Treatment Not on file Procedures Procedure Name Priority Date/Time Associated Comments Diagnosis RHYTHM STRIP - SCAN 06/13/2018 9:00 AM CDT RHYTHM STRIP - SCAN 06/10/2018 2:22 PM CDT POCT-GLUCOSE METER Routine 06/09/2018 11:39 Results for this AM CDT procedure are in the results section. POCT-GLUCOSE METER Routine 06/09/2018 8:14 Results for this AM CDT procedure are in the results section. CBC W/PLT COUNT & AUTO Routine 06/09/2018 4:01 Results for this DIFFERENTIAL AM CDT procedure are in the results section. PHOSPHORUS Routine 06/09/2018 4:01 Results for this AM CDT procedure are in the results section. MAGNESIUM Routine 06/09/2018 4:01 Results for this AM CDT procedure are in the results section. CBC W/PLT COUNT & AUTO Routine 06/09/2018 4:01 Results for this DIFFERENTIAL AM CDT procedure are in the results section. CALCIUM, IONIZED Routine 06/09/2018 4:01 Results for this AM CDT procedure are in the results section. B-TYPE NATRIURETIC Routine 06/09/2018 4:01 Results for this FACTOR (BNP) AM CDT procedure are in the results section. BASIC METABOLIC PANEL Routine 06/09/2018 4:01 Results for this (7) AM CDT procedure are in the results section. POCT-GLUCOSE METER Routine 06/08/2018 9:16 Results for this PM CDT procedure are in the results section. POCT-GLUCOSE METER Routine 06/08/2018 4:57 Results for this PM CDT procedure are in the results section. POCT-GLUCOSE METER Routine 06/08/2018 2:02 Results for this PM CDT procedure are in the results section. HEPATIC FUNCTION PANEL Routine 06/08/2018 12:52 Results for this PM CDT procedure are in the results section. POCT-GLUCOSE METER Routine 06/08/2018 7:34 Results for this AM CDT procedure are in the results section. CBC W/PLT COUNT & AUTO Routine 06/08/2018 3:47 Results for this DIFFERENTIAL AM CDT procedure are in the results section. CBC W/PLT COUNT & AUTO Routine 06/08/2018 3:47 Results for this DIFFERENTIAL AM CDT procedure are in the results section. BASIC METABOLIC PANEL Routine 06/08/2018 3:47 Results for this (7) AM CDT procedure are in the results section. POCT-GLUCOSE METER Routine 06/07/2018 9:12 Results for this PM CDT procedure are in the results section. POCT-GLUCOSE METER Routine 06/07/2018 4:56 Results for this PM CDT procedure are in the results section. CT ABDOMEN/PELVIS Routine 06/07/2018 2:31 Results for this WITHOUT IV CONTRAST PM CDT procedure are in the results section. POCT-GLUCOSE METER Routine 06/07/2018 12:38 Results for this PM CDT procedure are in the results section. POCT-GLUCOSE METER Routine 06/07/2018 7:46 Results for this AM CDT procedure are in the results section. CBC W/PLT COUNT & AUTO Routine 06/07/2018 4:47 Results for this DIFFERENTIAL AM CDT procedure are in the results section. PHOSPHORUS Routine 06/07/2018 4:47 Results for this AM CDT procedure are in the results section. MAGNESIUM Routine 06/07/2018 4:47 Results for this AM CDT procedure are in the results section. CBC W/PLT COUNT & AUTO Routine 06/07/2018 4:47 Results for this DIFFERENTIAL AM CDT procedure are in the results section. CALCIUM, IONIZED Routine 06/07/2018 4:47 Results for this AM CDT procedure are in the results section. BASIC METABOLIC PANEL Routine 06/07/2018 4:47 Results for this (7) AM CDT procedure are in the results section. POCT-GLUCOSE METER Routine 06/06/2018 8:59 Results for this PM CDT procedure are in the results section. POCT-GLUCOSE METER Routine 06/06/2018 5:12 Results for this PM CDT procedure are in the results section. POCT-GLUCOSE METER Routine 06/06/2018 11:30 Results for this AM CDT procedure are in the results section. POCT-GLUCOSE METER Routine 06/06/2018 7:05 Results for this AM CDT procedure are in the results section. CBC W/PLT COUNT & AUTO Routine 06/06/2018 4:47 Results for this DIFFERENTIAL AM CDT procedure are in the results section. CBC W/PLT COUNT & AUTO Routine 06/06/2018 4:47 Results for this DIFFERENTIAL AM CDT procedure are in the results section. BASIC METABOLIC PANEL Routine 06/06/2018 4:47 Results for this (7) AM CDT procedure are in the results section. POCT-GLUCOSE METER Routine 06/05/2018 9:16 Results for this PM CDT procedure are in the results section. POCT-GLUCOSE METER Routine 06/05/2018 4:54 Results for this PM CDT procedure are in the results section. URINALYSIS W/ REFLEX Routine 06/05/2018 2:15 Results for this URINE CULTURE PM CDT procedure are in the results section. URINE CULTURE Routine 06/05/2018 2:15 Results for this PM CDT procedure are in the results section. CBC W/PLT COUNT & AUTO Routine 06/05/2018 2:13 Results for this DIFFERENTIAL PM CDT procedure are in the results section. CBC W/PLT COUNT & AUTO Routine 06/05/2018 2:13 Results for this DIFFERENTIAL PM CDT procedure are in the results section. POCT-GLUCOSE METER Routine 06/05/2018 8:11 Results for this AM CDT procedure are in the results section. BASIC METABOLIC PANEL Routine 06/05/2018 4:05 Results for this (7) AM CDT procedure are in the results section. POCT-GLUCOSE METER Routine 06/04/2018 9:02 Results for this PM CDT procedure are in the results section. POCT-GLUCOSE METER Routine 06/04/2018 1:01 Results for this PM CDT procedure are in the results section. POCT-GLUCOSE METER Routine 06/04/2018 8:15 Results for this AM CDT procedure are in the results section. CBC W/PLT COUNT & AUTO Routine 06/04/2018 5:09 Results for this DIFFERENTIAL AM CDT procedure are in the results section. CBC W/PLT COUNT & AUTO Routine 06/04/2018 5:09 Results for this DIFFERENTIAL AM CDT procedure are in the results section. CALCIUM, IONIZED Routine 06/04/2018 5:09 Results for this AM CDT procedure are in the results section. BASIC METABOLIC PANEL Routine 06/04/2018 5:09 Results for this (7) AM CDT procedure are in the results section. POCT-GLUCOSE METER Routine 06/03/2018 9:32 Results for this PM CDT procedure are in the results section. POCT-GLUCOSE METER Routine 06/03/2018 5:02 Results for this PM CDT procedure are in the results section. URINALYSIS W/ REFLEX Routine 06/03/2018 4:58 Results for this URINE CULTURE PM CDT procedure are in the results section. URINE CULTURE Routine 06/03/2018 4:58 Results for this PM CDT procedure are in the results section. POCT-GLUCOSE METER Routine 06/03/2018 12:18 Results for this PM CDT procedure are in the results section. POCT-GLUCOSE METER Routine 06/03/2018 8:22 Results for this AM CDT procedure are in the results section. XR CHEST 1 VIEW Routine 06/03/2018 6:10 Results for this PORTABLE/BEDSIDE AM CDT procedure are in the results section. POCT-GLUCOSE METER Routine 06/03/2018 4:34 Results for this AM CDT procedure are in the results section. CBC W/PLT COUNT & AUTO Routine 06/03/2018 4:22 Results for this DIFFERENTIAL AM CDT procedure are in the results section. B-TYPE NATRIURETIC Routine 06/03/2018 4:22 Results for this FACTOR (BNP) AM CDT procedure are in the results section. COMPREHENSIVE METABOLIC Routine 06/03/2018 4:22 Results for this PANEL AM CDT procedure are in the results section. PHOSPHORUS Routine 06/03/2018 4:22 Results for this AM CDT procedure are in the results section. CALCIUM, IONIZED Routine 06/03/2018 4:22 Results for this AM CDT procedure are in the results section. MAGNESIUM Routine 06/03/2018 4:22 Results for this AM CDT procedure are in the results section. CBC W/PLT COUNT & AUTO Routine 06/03/2018 4:22 Results for this DIFFERENTIAL AM CDT procedure are in the results section. POCT-GLUCOSE METER Routine 06/02/2018 9:05 Results for this PM CDT procedure are in the results section. POCT-GLUCOSE METER Routine 06/02/2018 6:05 Results for this PM CDT procedure are in the results section. POCT-GLUCOSE METER Routine 06/02/2018 12:03 Results for this PM CDT procedure are in the results section. POCT-GLUCOSE METER Routine 06/02/2018 10:01 Results for this AM CDT procedure are in the results section. US RENAL COMPLETE Routine 06/02/2018 7:49 Results for this AM CDT procedure are in the results section. CBC W/PLT COUNT & AUTO Routine 06/02/2018 5:09 Results for this DIFFERENTIAL AM CDT procedure are in the results section. CALCIUM, IONIZED Routine 06/02/2018 5:09 Results for this AM CDT procedure are in the results section. MAGNESIUM Routine 06/02/2018 5:09 Results for this AM CDT procedure are in the results section. BASIC METABOLIC PANEL Routine 06/02/2018 5:09 Results for this (7) AM CDT procedure are in the results section. CBC W/PLT COUNT & AUTO Routine 06/02/2018 5:09 Results for this DIFFERENTIAL AM CDT procedure are in the results section. B-TYPE NATRIURETIC Routine 06/01/2018 11:26 Results for this FACTOR (BNP) PM CDT procedure are in the results section. XR CHEST 1 VIEW Routine 06/01/2018 10:05 Results for this PORTABLE/BEDSIDE PM CDT procedure are in the results section. POCT-GLUCOSE METER Routine 06/01/2018 9:21 Results for this PM CDT procedure are in the results section. ECHOCARDIOGRAM REPORT - 06/01/2018 9:12 SCAN PM CDT PROTEIN, RANDOM URINE Routine 06/01/2018 6:03 Results for this PM CDT procedure are in the results section. CREATININE, RANDOM Routine 06/01/2018 6:03 Results for this URINE PM CDT procedure are in the results section. POCT-GLUCOSE METER Routine 06/01/2018 5:03 Results for this PM CDT procedure are in the results section. POCT-GLUCOSE METER Routine 06/01/2018 12:43 Results for this PM CDT procedure are in the results section. 2D ECHO W/ DOPPLER Routine 06/01/2018 11:22 Results for this (CW/PW/COLOR) AM CDT procedure are in the results section. POCT-GLUCOSE METER Routine 06/01/2018 9:46 Results for this AM CDT procedure are in the results section. URINALYSIS MICROSCOPIC Routine 06/01/2018 9:02 Results for this AM CDT procedure are in the results section. URINALYSIS WITH Routine 06/01/2018 9:02 Results for this MICROSCOPIC IF AM CDT procedure are in INDICATED the results section. CBC W/PLT COUNT & AUTO Routine 06/01/2018 4:01 Results for this DIFFERENTIAL AM CDT procedure are in the results section. MAGNESIUM Routine 06/01/2018 4:01 Results for this AM CDT procedure are in the results section. BASIC METABOLIC PANEL Routine 06/01/2018 4:01 Results for this (7) AM CDT procedure are in the results section. CBC W/PLT COUNT & AUTO Routine 06/01/2018 4:01 Results for this DIFFERENTIAL AM CDT procedure are in the results section. ECG 12-LEAD Routine 06/01/2018 1:51 AM CDT Procedure Note - Interface, External Ris In - 06/01/2018 2:05 AM CDT Ventricular Rate 46 BPM Atrial Rate 46 BPM P-R Interval 204 ms QRS Duration 156 ms Q-T Interval 584 ms QTC Calculation(Bazett) 511 ms P [place] 39 degrees R [place] 108 degrees T [place] 71 degrees Sinus bradycardia Non-specific intra-ventricular conduction block Possible Lateral infarct , age undetermined Abnormal ECG No previous ECGs available ECG 12-LEAD Routine 06/01/2018 1:51 AM CDT after 08/04/2017 Results RHYTHM STRIP - SCAN (06/13/2018 9:00 AM CDT)Only the most recent of2 resultswithin the time period is included. Narrative Performed At POC-Glucose meter (06/09/2018 11:39 AM CDT)Only the most recent of33 resultswithin the time period is included. POC-Glucose Meter 102Comment: TESTED AT 70 - 110 mg/dL [facility] [address] [facility] [address] Specimen Blood Performing Organization Address [facility] Phone Number [address] [phone] CENTER Calcium, Ionized (06/09/2018 4:01 AM CDT)Only the most recent of5 resultswithin the time period is included. Calcium, Ion 0.83 (L) 1.12 - 1.27 mmol/L [facility] pH, Blood 7.[address] [facility] Specimen Blood Performing Organization Address City/State/Zipcode Phone Number [facility] [address] [place] [address] CENTER CBC with platelet count + automated diff (06/09/2018 4:01 AM CDT)Only the most recent of9 resultswithin the time period is included. WBC 9.8 3.5 - 10.5 K/L [facility] RBC 2.72 (L) 3.93 - 5.22 M/L [facility] Hemoglobin 8.3 (L) 11.2 - 15.7 GM/DL [facility] Hematocrit 27.2 (L) 34.1 - 44.9 % [facility] MCV 100.0 (H) 79.4 - 94.[address] [facility] MCH 30.5 25.6 - 32.[address] [facility] MCHC 30.5 (L) 32.2 - 35.5 GM/DL [facility] RDW 16.3 (H) 11.7 - 14.4 % [facility] Platelets 286 150 - 450 K/CU MM [facility] MPV 10.7 9.4 - 12.[address] [facility] nRBC 0 0 - 0 /[address] [facility] % Neutros 74 % [facility] % Lymphs 14 % [facility] % Monos 9 % [facility] % Eos 1 % [facility] % Baso 1 % [facility] # Neutros 7.20 (H) 1.56 - 6.13 K/L [facility] # Lymphs 1.36 1.18 - 3.74 K/L [facility] # Monos 0.83 (H) 0.24 - 0.36 K/L [facility] # Eos 0.14 0.04 - 0.36 K/L [facility] # Baso 0.07 0.01 - 0.08 K/L [facility] Immature 2 (H) 0 - 1 % [facility] Granulocytes[facility] Specimen Blood Performing Organization Address City/[facility] Phone Number [address] [address] CENTER Phosphorus (06/09/2018 4:01 AM CDT)Only the most recent of3 resultswithin the time period is included. Phosphorus 4.6 2.3 - 4.7 mg/dL [facility] Specimen Blood Performing Organization Address City/[facility] Phone Number [address] [address] CENTER B-type Natriuretic Factor (BNP) (06/09/2018 4:01 AM CDT)Only the most recent of3 resultswithin the time period is included. BNP 163 (H) 0 - 100 pg/mL [facility] Specimen Blood Performing Organization Address City/[facility] Phone Number [address] [address] CENTER Magnesium (06/09/2018 4:01 AM CDT)Only the most recent of5 resultswithin the time period is included. Magnesium 2.5 1.6 - 2.6 mg/dL [facility] Specimen Blood Performing Organization Address City/[facility] Phone Number [address] [phone] CENTER Basic Metabolic Panel (06/09/2018 4:01 AM CDT)Only the most recent of8 resultswithin the time period is included. Sodium 139 136 - 145 meq/L [facility] Potassium 4.5 3.5 - 5.1 meq/L [facility] Chloride 99 98 - 107 meq/L [facility] CO2 29 22 - 29 meq/L [facility] BUN 71 (H) 7 - 21 mg/dL [facility] Creatinine 2.27 (H) 0.57 - 1.25 mg/dL [facility] Glucose 106 (H) 70 - 105 mg/dL [facility] Calcium 9.6 8.4 - 10.2 mg/dL [facility] EGFR 21Comment: ESTIMATED GFR IS mL/min/1.73 sq m [facility] NOT ACCURATE [facility] CLEARANCE IN PREDICTING GLOMERULAR FILTRATION RATE. ESTIMATED GFR IS NOT APPLICABLE FOR DIALYSIS PATIENTS. Specimen Blood Performing Organization Address City/[facility] Phone Number [address] [address] [place] Hepatic function panel (06/08/2018 12:52 PM CDT) Protein, Total 8.2 6.0 - 8.3 gm/dL [facility] Albumin 3.6 3.5 - 5.0 g/dL [facility] Total Bilirubin 0.3 0.2 - 1.2 mg/dL [facility] Bilirubin, Direct 0.2 0.1 - 0.5 mg/dL [facility] Alkaline Phosphatase 80 40 - 150 U/L [facility] AST 22 5 - 34 U/L [facility] ALT 15 6 - 55 U/L [facility] Specimen Blood Performing Organization Address City/[facility]/Zipcode Phone Number [address] [address] [place] [address] abdomen/pelvis without iv contrast (06/07/2018 2:31 PM CDT) Specimen Narrative Performed At FINAL REPORT GE RIS TECHNIQUE: CT of the abdomen and pelvis WITHOUT intravenous contrast and WITHOUT oral contrast. Dose modulation, iterative reconstruction, and/or weight-based adjustment of the mA/kV was utilized to reduce the radiation dose to as low as reasonably achievable. INDICATION: Abd pain, gastroenteritis or colitis suspected. COMPARISON: None. FINDINGS: ABSENCE OF INTRAVENOUS CONTRAST DECREASES SENSITIVITY FOR DETECTION OF FOCAL LESIONS AND VASCULAR PATHOLOGY. LOWER THORAX: Small bilateral pleural effusions with associated atelectasis. HEPATOBILIARY: No focal hepatic lesions. Multiple tiny layering gallstones in a nondistended gallbladder. No biliary ductal dilatation. SPLEEN: No splenomegaly. PANCREAS: No focal masses or ductal dilatation. A questionable cyst in the pancreas head measures 1.2 cm on axial image 26. ADRENALS: No adrenal nodules. KIDNEYS/URETERS: No hydronephrosis or exophytic masses. A single right upper pole punctate nonobstructing renal stone is seen on coronal images 89. PELVIC ORGANS/BLADDER: A subserosal left uterine body leiomyoma measures 2.3 cm. PERITONEUM/RETROPERITONEUM: No free air or fluid. LYMPH NODES: No lymphadenopathy. VESSELS: Mild aortic atherosclerotic calcifications. There are calcifications of the small arteries, likely due to diabetes or renal disease. GI TRACT: Large volume of stool in the rectum. The base of the appendix is mildly expanded at 1.1 cm. However, the tip is normal in caliber. In addition, there is no significant fat stranding is seen on coronal image 79. BONES AND SOFT TISSUES: Mild compression deformity of the superior endplate of L1. Injection granulomas of the subcutaneous tissues of the lower abdomen. IMPRESSION: 1.There is a large volume of stool in the rectum. 2.The base of the appendix is mildly expanded. However, this is a nonspecific finding since the tip of the appendix is collapsed and there is little to no surrounding fat stranding. Acute appendicitis is considered unlikely. However, correlation for right lower quadrant pain is recommended to exclude acute appendicitis. A follow-up CT is recommended in three months to document resolution. 3.A question of cyst in the pancreatic head measures 1.2 cm. Follow-up with an MRI of the pancreas with MRCP is recommended in one year to document stability. 4.Cholelithiasis without acute cholecystitis. 5.Mild superior compression deformity of superior endplate of L1. 6.Leiomyoma of the uterus. 7.Small bilateral pleural effusions with subsegmental atelectasis. 8.A nonobstructing right renal stone is punctate. Signed: Donnell Fish MD Report Verified Date/Time:06/07/2018 19:36:11 Reading Location: [facility] B1 [id number] CT Body Reading Room Procedure Note Interface, External Ris In - 06/07/2018 7:38 PM CDT FINAL REPORT TECHNIQUE: CT of the abdomen and pelvis WITHOUT intravenous contrast and WITHOUT oral contrast. Dose modulation, iterative reconstruction, and/or weight-based adjustment of the mA/kV was utilized to reduce the radiation dose to as low as reasonably achievable. INDICATION: Abd pain, gastroenteritis or colitis suspected. COMPARISON: None. FINDINGS: ABSENCE OF INTRAVENOUS CONTRAST DECREASES SENSITIVITY FOR DETECTION OF FOCAL LESIONS AND VASCULAR PATHOLOGY. LOWER THORAX: Small bilateral pleural effusions with associated atelectasis. HEPATOBILIARY: No focal hepatic lesions. Multiple tiny layering gallstones in a nondistended gallbladder. No biliary ductal dilatation. SPLEEN: No splenomegaly. PANCREAS: No focal masses or ductal dilatation. A questionable cyst in the pancreas head measures 1.2 cm on axial image 26. ADRENALS: No adrenal nodules. KIDNEYS/URETERS: No hydronephrosis or exophytic masses. A single right upper pole punctate nonobstructing renal stone is seen on coronal images 89. PELVIC ORGANS/BLADDER: A subserosal left uterine body leiomyoma measures 2.3 cm. PERITONEUM/RETROPERITONEUM: No free air or fluid. LYMPH NODES: No lymphadenopathy. VESSELS: Mild aortic atherosclerotic calcifications. There are calcifications of the small arteries, likely due to diabetes or renal disease. GI TRACT: Large volume of stool in the rectum. The base of the appendix is mildly expanded at 1.1 cm. However, the tip is normal in caliber. In addition, there is no significant fat stranding is seen on coronal image 79. BONES AND SOFT TISSUES: Mild compression deformity of the superior endplate of L1. Injection granulomas of the subcutaneous tissues of the lower abdomen. IMPRESSION: 1.There is a large volume of stool in the rectum. 2.The base of the appendix is mildly expanded. However, this is a nonspecific finding since the tip of the appendix is collapsed and there is little to no surrounding fat stranding. Acute appendicitis is considered unlikely. However, correlation for right lower quadrant pain is recommended to exclude acute appendicitis. A follow-up CT is recommended in three months to document resolution. 3.A question of cyst in the pancreatic head measures 1.2 cm. Follow-up with an MRI of the pancreas with MRCP is recommended in one year to document stability. 4.Cholelithiasis without acute cholecystitis. 5.Mild superior compression deformity of superior endplate of L1. 6.Leiomyoma of the uterus. 7.Small bilateral pleural effusions with subsegmental atelectasis. 8.A nonobstructing right renal stone is punctate. Signed: Donnell Fish MD Report Verified Date/Time: 06/07/2018 19:36:11 Reading Location: [facility] B1 C013Y CT Body Reading Room Performing Organization Address City/State/Zipcode Phone Number [facility] Urinalysis w/Microscopic + Reflex to Culture (06/05/2018 2:15 PM CDT)Only the most recent of2 resultswithin the time period is included. Color, UA Light Yellow [facility] Clarity, UA Hazy [facility] Specific [place], UA 1.008 1.001 - 1.[address] [facility] pH, UA 5.0 5.0 - 8.[address] [facility] Protein, UA 30 mg/dL (A) Negative [facility] Glucose, UA Negative Negative [facility] Ketones, UA Negative Negative [facility] Bilirubin, UA Negative Negative [facility] Blood, UA Negative Negative [facility] Nitrite, UA Positive (A) Negative [facility] Leukocytes, UA Large (A) Negative [facility] Urobilinogen, UA 0.2 0.2 - 1.0 mg/dL [facility] RBC, UA 1 /HPF [facility] WBC, UA 236 /HPF [facility] Bacteria, UA Few [facility] Mucus Rare [facility] Squam Epithel, UA <1 /HPF [facility] Specimen Source [facility] Specimen Urine Performing Organization Address City/State/Zipcode Phone Number [facility] [address] [place] [address] CENTER Urine culture (06/05/2018 2:15 PM CDT)Only the most recent of2 resultswithin the time period is included. Result >100,000 col/mL Same organism has been isolated from cultures(s) of the same body site within 3 days. Repeat identification and susceptibility testing performed only after consultation with the clinical microbiology laboratory. (A) [facility] Comment: [facility] Refer to previous culture of Escherichia coli Specimen Urine Performing Organization Address City/[facility] Phone Number [address] [address] [place] XR chest 1 view portable / bedside (06/03/2018 6:10 AM CDT)Only the most recent of2 resultswithin the time period is included. Specimen Narrative Performed At FINAL REPORT GE RIS Portable chest. CLINICAL HISTORY: edema. COMPARISON STUDY: June 01, 2018. FINDINGS: The cardiac silhouette is enlarged. The pulmonary parenchyma demonstrates mild interstitial markings with atelectatic changes, improved from previous.No pneumothorax is seen. Degenerative changes are noted. IMPRESSION: Improvement in pulmonary opacities. Signed: Jamison Orozco MD Report Verified Date/Time:06/03/2018 09:25:59 Reading Location: [facility] Radiology Reading Room Procedure Note Interface, External Ris In - 06/03/2018 9:28 AM CDT FINAL REPORT Portable chest. CLINICAL HISTORY: edema. COMPARISON STUDY: June 01, 2018. FINDINGS: The cardiac silhouette is enlarged. The pulmonary parenchyma demonstrates mild interstitial markings with atelectatic changes, improved from previous. No pneumothorax is seen. Degenerative changes are noted. IMPRESSION: Improvement in pulmonary opacities. Signed: Jamison Orozco MD Report Verified Date/Time: 06/03/2018 09:25:59 Reading Location: [facility] Radiology Reading Room Performing Organization Address City/[facility] Phone Number RIS Comprehensive metabolic panel (06/03/2018 4:22 AM CDT) Protein, Total 7.4 6.0 - 8.3 gm/dL [facility] Albumin 3.3 (L) 3.5 - 5.0 g/dL [facility] Alkaline Phosphatase 87 40 - 150 U/L [facility] Total Bilirubin 0.4 0.2 - 1.2 mg/dL [facility] Sodium 141 136 - 145 meq/L [facility] Potassium 4.7 3.5 - 5.1 meq/L [facility] Chloride 112 (H) 98 - 107 meq/L [facility] CO2 19 (L) 22 - 29 meq/L [facility] BUN 64 (H) 7 - 21 mg/dL [facility] Creatinine 2.62 (H) 0.57 - 1.25 mg/dL [facility] Glucose 162 (H) 70 - 105 mg/dL [facility] Calcium 8.7 8.4 - 10.2 mg/dL [facility] AST 11 5 - 34 U/L [facility] ALT 11 6 - 55 U/L [facility] EGFR 18Comment: ESTIMATED GFR mL/min/1.73 sq m [facility] IS NOT ACCURATE [facility] CREATININE CLEARANCE IN PREDICTING GLOMERULAR FILTRATION RATE. ESTIMATED GFR IS NOT APPLICABLE FOR DIALYSIS PATIENTS. Specimen Blood Performing Organization Address City/[facility] Phone Number [facility] [address] [place] [address] CENTER US renal complete (06/02/2018 7:49 AM CDT) Specimen Narrative Performed At FINAL REPORT [facility] Renal ultrasound Clinical History:Acute renal injury Discussion: Sonographic evaluation of the kidneys is performed. The kidneys have normal size and cortical echogenicity. The right kidney measures 10.6 cm in length. The left kidney measures 9.3 cm in length. There is no focal renal mass, hydronephrosis, or shadowing renal calculus. No perinephric fluid collection is seen. Survey images of the bladder demonstrate no abnormality. Impression: Normal sonographic evaluation of the kidneys. Signed: Kenney Sharp MD Report Verified Date/Time:06/02/2018 10:53:55 Reading Location: [address] Ultrasound Reading Room Procedure Note Interface, External Ris In - 06/02/2018 10:56 AM CDT FINAL REPORT Renal ultrasound Clinical History: Acute renal injury Discussion: Sonographic evaluation of the kidneys is performed. The kidneys have normal size and cortical echogenicity. The right kidney measures 10.6 cm in length. The left kidney measures 9.3 cm in length. There is no focal renal mass, hydronephrosis, or shadowing renal calculus. No perinephric fluid collection is seen. Survey images of the bladder demonstrate no abnormality. Impression: Normal sonographic evaluation of the kidneys. Signed: Kenney Sharp MD Report Verified Date/Time: 06/02/2018 10:53:55 Reading Location: [address] Ultrasound Reading Room Performing Organization Address City/State/Zipcode Phone Number [facility] ECHOCARDIOGRAM REPORT - SCAN (06/01/2018 9:12 PM CDT) Narrative Performed At Protein, random urine (06/01/2018 6:03 PM CDT) Protein, Urine 31 (H) 0 - 14 mg/dL [facility] Specimen Urine Performing Organization Address [facility]/Zipcode Phone Number [facility] [address] [place], [place] [id number] [place] Creatinine, random urine (06/01/2018 6:03 PM CDT) Creatinine, Ur 55.7 mg/dL [facility] Specimen Urine Narrative Performed At Reference Range: No Normals [facility] Performing Organization Address City/[facility] Phone Number [facility] [address] [place] [address] [place] 2D Echo W/Doppler(CW/PW/Color) (06/01/2018 11:22 AM CDT) Ejection Fraction [facility] Specimen Narrative Performed At Transthoracic Echocardiography Report (TTE) [facility] Demographics Patient Name NELIA SWEET Date of Study 06/01/2018 Gaetano [id number] GenderFemale Visit Number [id number] Unknown [id number] Room Number 1006 Number Date of Birth1945Referring Physician Anel Crespo Age72 year(s)Contract Management Specialist Dorothy Potts [facility] AnalystIzoDonavan Lopez MD Procedure Type of Study TTE procedure:2DECHO W DOPPLER(CW/PW/COLOR) (Routine) Indications:Acute Chest Pain/ Suspected CAD and Known or suspected cardiomyopathy. Clinical History NOF HGB 7.2 HCT 24.4 % Contrast Medium: Definity. Height: 58 inches Weight: 85.73 kg (189 lbs) BSA: 1.78 m^2 BMI: 39.5 kg/m^2 HR: 60 bpm BP: 158/96 mmHg Summary 1. All of the LV segments contract normally . LVEF by Conley's method of disk assessment is normal (60%) . 2. Estimated peak systolic PA pressure is 35-40 mmHg + RA pressure. Previous Study No prior exam available for comparison. Signature Findings Left Ventricle The left ventricle is chamber size (by PSLAX di mension) is normal (female - LVIDd 3.8-5.2cm) . No rmal LV wall thickness. All of the LV segments co ntract normally . Global LV systolic function no rmal . LVEF by Conley's method of disk as sessment is normal (60%) . The LVEF was measured us ing Conley's bi-plane method of disk . LV en docardium is adequately visualized with IV ul trasound enhancing agent. Increased (cardiac in dex 3.5-4.0 L/min/m2) cardiac output state at re st is noted. Left AtriumLA size is moderately enlarged (42-48 ml/m2) . Right VentricleRV chamber size is mildly enlarged . Gl obal RV systolic function is normal . Right Atrium RA cavity size is normal . Aortic Valve Mild AoV cusp thickening. A trace of aortic regurgitation. Mitral Valve Mild MV leaflet thickening. Mi ld mitral annular calcification. Mi ld mitral regurgitation. Tricuspid ValveMild tricuspid regurgitation. Es timated peak systolic PA pressure is 35-40 mmHg + RA pressure. Pulmonic Valve Normal PV structure and function by limited views an d Doppler. AortaAortic root size (SInus of Valsalva diameter) is no rmal . Proximal ascending aorta size mildly di lated . 3.8 cm PericardiumA trivial pericardial effusion is present . An echo lucent space is noted consistent with pr ominent pericardial fat pad. IVC/SVC/PA/PV/PleuralThe estimated RA pressure by IVC dynamics 11-15mmHg . Chambers/Structures Left Atrium LA Volume: 76.56 ml LA Area: 23 cm^2 LA Vol. Index: 43 ml/m^2 Left Ventricle LVIDd: 5.25 cm LV Septum Diastolic: 0.85 cm LV PW Diastolic: 0.93 cm LVEDV Conley's:130.52 ml LVESV Conley's:52.27 ml LVEF Conley's: 60 %L VEDVI: 73 ml/m^2 LVESVI: 29 ml/m^2 LVOT Diameter: 2.04 cm Right Atrium RA Vol. (Sngl Plane): 43.78 ml Right Ventricle TAPSE: 1.86 cm Aorta Ao Root S of Roxana.: 2.62 cmAscending Aorta: 3.81 cm Doppler/Quantitative Measurements Mitral Valve MV Peak E-Wave: 1.24 m/sMV Peak A-Wave: 0.89 m/s E/A Ratio: 1.38 Peak Gradient: 6.11 mmHg Deceleration Time: 185.9 msec MV Keenan. Peak: Tissue Doppler E' Lateral Velocity: 0.07 m/s E/E': 17.97 Aortic Valve Peak Velocity: 1.87 m/sMean Velocity: 1.35 m/s Peak Gradient: 13.93 mmHgMean Gradient: 8.25 mmHg AV Area (continuity): 2.07 cm^2 AV VTI: 50.76 cm AV DVI: 0.63 LVOT Peak Velocity: 1.23 m/s Peak Gradient: 6.07 mmHg Mean Velocity: 0.93 m/s Mean Gradient: 3.89 mmHg LVOT Diameter: 2.04 cmLVOT VTI: 32.11 cm LVOT Area: 3.27 cm^2LVOT SV:104.9 ml LVOT CO: 6.29 l/min LVOT CI: 3.53 l/min/m^2 Tricuspid Valve TR Velocity: 3.11 m/s TR Gradient: 38.66 mmHg Procedure Note Interface, External Ris In - 06/01/2018 3:38 PM CDT Transthoracic Echocardiography Report (TTE) Demographics Patient Name NELIA SWEET Date of Study 06/01/2018 M Gender Female Visit Number [id number] Race Unknown Room Number 1006 Number Date of 1945 Referring Physician Anel Crespo Age 72 year(s) Contract Management Specialist Dorothy Potts [employer] Donavan Funez MD Procedure Type of Study TTE procedure:2DECHO W DOPPLER(CW/PW/COLOR) (Routine) Indications:Acute Chest Pain/ Suspected CAD and Known or suspected cardiomyopathy. Clinical History NOF HGB 7.2 HCT 24.4 % Contrast Medium: Definity. Height: 58 inches Weight: 85.73 kg (189 lbs) BSA: 1.78 m^2 BMI: 39.5 kg/m^2 HR: 60 bpm BP: 158/96 mmHg Summary 1. All of the LV segments contract normally . LVEF by Ocnley's method of disk assessment is normal (60%) . 2. Estimated peak systolic PA pressure is 35-40 mmHg + RA pressure. Previous Study No prior exam available for comparison. Signature Findings Left Ventricle The left ventricle is chamber size (by PSLAX dimension) is normal (female - LVIDd 3.8-5.2cm) . Normal LV wall thickness. All of the LV segments contract normally . Global LV systolic function normal . LVEF by Conley's method of disk assessment is normal (60%) . The LVEF was measured using Conley's bi-plane method of disk . LV endocardium is adequately visualized with IV ultrasound enhancing agent. Increased (cardiac index 3.5-4.0 L/min/m2) cardiac output state at rest is noted. Left Atrium LA size is moderately enlarged (42-48 ml/m2) . Right Ventricle RV chamber size is mildly enlarged . Global RV systolic function is normal . Right Atrium RA cavity size is normal . Aortic Valve Mild AoV cusp thickening. A trace of aortic regurgitation. Mitral Valve Mild MV leaflet thickening. Mild mitral annular calcification. Mild mitral regurgitation. Tricuspid Valve Mild tricuspid regurgitation. Estimated peak systolic PA pressure is 35-40 mmHg + RA pressure. Pulmonic Valve Normal PV structure and function by limited views and Doppler. Aorta Aortic root size (SInus of Valsalva diameter) is normal . Proximal ascending aorta size mildly dilated . 3.8 cm Pericardium A trivial pericardial effusion is present . An echo lucent space is noted consistent with prominent pericardial fat pad. IVC/SVC/PA/PV/Pleural The estimated RA pressure by IVC dynamics 11-15mmHg . Chambers/Structures Left Atrium LA Volume: 76.56 ml LA Area: 23 cm^2 LA Vol. Index: 43 ml/m^2 Left Ventricle LVIDd: 5.25 cm LV Septum Diastolic: 0.85 cm LV PW Diastolic: 0.93 cm LVEDV Conley's:130.52 ml LVESV Conley's:52.27 ml LVEF Conley's: 60 % LVEDVI: 73 ml/m^2 LVESVI: 29 ml/m^2 LVOT Diameter: 2.04 cm Right Atrium RA Vol. (Sngl Plane): 43.78 ml Right Ventricle TAPSE: 1.86 cm Aorta Ao Root S of Roxana.: 2.62 cm Ascending Aorta: 3.81 cm Doppler/Quantitative Measurements Mitral Valve MV Peak E-Wave: 1.24 m/s MV Peak A-Wave: 0.89 m/s E/A Ratio: 1.38 Peak Gradient: 6.11 mmHg Deceleration Time: 185.9 msec MV Keenan. Peak: Tissue Doppler E' Lateral Velocity: 0.07 m/s E/E': 17.97 Aortic Valve Peak Velocity: 1.87 m/s Mean Velocity: 1.35 m/s Peak Gradient: 13.93 mmHg Mean Gradient: 8.25 mmHg AV Area (continuity): 2.07 cm^2 AV VTI: 50.76 cm AV DVI: 0.63 LVOT Peak Velocity: 1.23 m/s Peak Gradient: 6.07 mmHg Mean Velocity: 0.93 m/s Mean Gradient: 3.89 mmHg LVOT Diameter: 2.04 cm LVOT VTI: 32.11 cm LVOT Area: 3.27 cm^2 LVOT SV:104.9 ml LVOT CO: 6.29 l/min LVOT CI: 3.53 l/min/m^2 Tricuspid Valve TR Velocity: 3.11 m/s TR Gradient: 38.66 mmHg Performing Organization Address City/[facility] Phone Number [facility] Urinalysis Microscopic Only (06/01/2018 9:02 AM CDT) RBC, UA <1 /HPF [facility] WBC, UA 13 /HPF [facility] Bacteria, UA Rare [facility] Squam Epithel, UA 1 /HPF [facility] Specimen Urine Performing Organization Address [facility] Unitcomi Phone Number [address] [address] [place] Urinalysis with Microscopic If Indicated (06/01/2018 9:02 AM CDT) Color, UA Light Yellow [facility] Clarity, UA Clear [facility] Specific [place], UA 1.008 1.001 - 1.[address] [facility] pH, UA 5.0 5.0 - 8.[address] [facility] Protein, UA 20 mg/dL (A) Negative [facility] Glucose, UA Negative Negative [facility] Ketones, UA Negative Negative [facility] Bilirubin, UA Negative Negative [facility] Blood, UA Negative Negative [facility] Nitrite, UA Negative Negative [facility] Leukocytes, UA Small (A) Negative [facility] Urobilinogen, UA 0.2 0.2 - 1.0 mg/dL [facility] Specimen Source [facility] Specimen Urine Performing Organization Address [facility]/Zipcode Phone Number [address] [address] [place] ECG 12 lead (06/01/2018 1:51 AM CDT) Specimen Narrative Performed At Ventricular Rate 46 BPM GE MUSE Atrial Rate 46 BPM P-R Interval 204 ms QRS Duration 156 ms Q-T Interval 584 ms QTC Calculation(Bazett) 511 ms P [place] 39 degrees R [place] 108 degrees T [place] 71 degrees Sinus bradycardia Non-specific intra-ventricular conduction block Possible Lateral infarct , age undetermined Abnormal ECG No previous ECGs available Confirmed by Fahad Sherman ([id number]) on 06/01/2018 3:27:17 PM Procedure Note Interface, External Ris In - 06/01/2018 3:27 PM CDT Ventricular Rate 46 BPM Atrial Rate 46 BPM P-R Interval 204 ms QRS Duration 156 ms Q-T Interval 584 ms QTC Calculation(Bazett) 511 ms P [place] 39 degrees R [place] 108 degrees T [place] 71 degrees Sinus bradycardia Non-specific intra-ventricular conduction block Possible Lateral infarct , age undetermined Abnormal ECG No previous ECGs available Confirmed by Fahad Sherman ([id number]) on 06/01/2018 3:27:17 PM Performing Organization Address City/State/Zipcode Phone Number GE MUSE after 08/04/2017 Insurance Payer Benefit Plan / Group Subscriber ID Type Phone Address [facility] Bitmenu ALL xxxxxxxx Maps Contracted Advance Directives For more information, please contact:[address] [phone] Code Status Date Activated Date Inactivated Comments Full Code 06/01/2018 1:31 AM 06/09/2018 4:25 PM This code status was determined by: Patient
--- OUTSIDE RECORDS SUMMARY | 2018-08-05 21:43 | XMS REPORT ---
:1945 Author Organization [facility] Address [address] [place] [address] Care Team Providers Name Role Phone JERAMY WHITFIELD Unavailable Unavailable Problems This patient has no known problems. Allergies, Adverse Reactions, Alerts This patient has no known allergies or adverse reactions. Medications This patient has no known medications. Results Test Description Test Time Test Comments Text Results Atomic Results Result Comments POCT-GLUCOSE METER 2018-06-09 12:38:00 Test Item Value Reference Range Comments POC-GLUCOSE METER (BEAKER) (test 102 mg/dL 70-110 TESTED AT [address] tmaf=7448) [facility] [address] POCT-GLUCOSE [id number] 08:33:00 Test Item Value Reference Range Comments POC-GLUCOSE METER (BEAKER) 112 mg/dL 70-110 TESTED AT [address] (test brrh=1625) [facility] [address] CALCIUM, [id number] 06:12:00 Test Item Value Reference Range Comments CALCIUM IONIZED (BEAKER) (test visb=855) 0.83 mmol/L 1.12-1.27 PH, BLOOD (BEAKER) (test vsyg=3049) 7.39 [id number] 04:50:00 Test Item Value Reference Range Comments PHOSPHORUS (BEAKER) (test gdtx=725) 4.6 mg/dL 2.3-4.7 [id number] 04:50:00 Test Item Value Reference Range Comments MAGNESIUM (BEAKER) (test upec=664) 2.5 mg/dL 1.6-2.6 BASIC METABOLIC [id number] 04:50:00 Test Item Value Reference Range Comments SODIUM (BEAKER) (test 139 meq/L 136-145 xbzb=460) POTASSIUM (BEAKER) (test 4.5 meq/L 3.5-5.1 jdgj=324) CHLORIDE (BEAKER) (test 99 meq/L 98-107 gvlm=294) CO2 (BEAKER) (test 29 meq/L 22-29 lvqv=600) BLOOD UREA NITROGEN 71 mg/dL 7-21 (BEAKER) (test hlny=092) CREATININE (BEAKER) (test 2.27 mg/dL 0.57-1.25 hvqq=082) GLUCOSE RANDOM (BEAKER) 106 mg/dL 70-105 (test odbg=498) CALCIUM (BEAKER) (test 9.6 mg/dL 8.4-10.2 awbj=238) EGFR (BEAKER) (test 21 mL/min/1.73 sq m ESTIMATED GFR IS NOT hvps=5350) ACCURATE CREATININE CLEARANCE IN PREDICTING GLOMERULAR FILTRATION RATE. ESTIMATED GFR IS NOT APPLICABLE FOR DIALYSIS PATIENTS. B-TYPE NATRIURETIC FACTOR (BNP)2018-06-09 04:49:00 Test Item Value Reference Range Comments B-TYPE NATRIURETIC PEPTIDE (BEAKER) (test 163 pg/mL 0-100 xscy=629) CBC W/PLT COUNT & AUTO [id number] 04:38:00 Test Item Value Reference Range Comments WHITE BLOOD CELL COUNT (BEAKER) (test yhdc=651) 9.8 K/ L 3.5-10.5 RED BLOOD CELL COUNT (BEAKER) (test afak=937) 2.72 M/ L 3.93-5.22 HEMOGLOBIN (BEAKER) (test bxbi=248) 8.3 GM/DL 11.2-15.7 HEMATOCRIT (BEAKER) (test jbvm=930) 27.2 % 34.1-44.9 MEAN CORPUSCULAR VOLUME (BEAKER) (test fpgt=721) 100.0 fL 79.4-94.8 MEAN CORPUSCULAR HEMOGLOBIN (BEAKER) (test 30.5 pg 25.6-32.2 sgex=464) MEAN CORPUSCULAR HEMOGLOBIN CONC (BEAKER) (test 30.5 GM/DL 32.2-35.5 luac=274) RED CELL DISTRIBUTION WIDTH (BEAKER) (test 16.3 % 11.7-14.4 tlve=170) PLATELET COUNT (BEAKER) (test druz=137) 286 K/CU MM 150-450 MEAN PLATELET VOLUME (BEAKER) (test mmph=028) 10.7 fL 9.4-12.3 NUCLEATED RED BLOOD CELLS (BEAKER) (test 0 /100 WBC 0-0 hcsv=800) NEUTROPHILS RELATIVE PERCENT (BEAKER) (test 74 % xhzz=425) LYMPHOCYTES RELATIVE PERCENT (BEAKER) (test 14 % ijof=292) MONOCYTES RELATIVE PERCENT (BEAKER) (test 9 % ilha=095) EOSINOPHILS RELATIVE PERCENT (BEAKER) (test 1 % vzvu=136) BASOPHILS RELATIVE PERCENT (BEAKER) (test 1 % cfei=640) NEUTROPHILS ABSOLUTE COUNT (BEAKER) (test 7.20 K/ L 1.56-6.13 dioa=252) LYMPHOCYTES ABSOLUTE COUNT (BEAKER) (test 1.36 K/ L 1.18-3.74 mimb=050) MONOCYTES ABSOLUTE COUNT (BEAKER) (test 0.83 K/ L 0.24-0.36 reem=950) EOSINOPHILS ABSOLUTE COUNT (BEAKER) (test 0.14 K/ L 0.04-0.36 ypfm=613) BASOPHILS ABSOLUTE COUNT (BEAKER) (test 0.07 K/ L 0.01-0.08 hvri=754) IMMATURE GRANULOCYTES-RELATIVE PERCENT (BEAKER) 2 % 0-1 (test twsa=5578) POCT-GLUCOSE [id number] 21:18:00 Test Item Value Reference Range Comments POC-GLUCOSE METER (BEAKER) 139 mg/dL 70-110 TESTED AT [address] (test ondf=9228) [place] [address] POCT-GLUCOSE [id number] 16:59:00 Test Item Value Reference Range Comments POC-GLUCOSE METER (BEAKER) 139 mg/dL 70-110 TESTED AT [address] (test tbza=0799) [place] [address] POCT-GLUCOSE [id number] 14:08:00 Test Item Value Reference Range Comments POC-GLUCOSE METER (BEAKER) 134 mg/dL 70-110 TESTED AT [address] (test rbec=0319) [place] [address] HEPATIC FUNCTION [id number] 13:25:00 Test Item Value Reference Range Comments TOTAL PROTEIN (BEAKER) (test itjp=535) 8.2 gm/dL 6.0-8.3 ALBUMIN (BEAKER) (test bzww=5916) 3.6 g/dL 3.5-5.0 BILIRUBIN TOTAL (BEAKER) (test evkh=020) 0.3 mg/dL 0.2-1.2 BILIRUBIN DIRECT (BEAKER) (test dzos=153) 0.2 mg/dL 0.1-0.5 ALKALINE PHOSPHATASE (BEAKER) (test iicr=984) 80 U/L 40-150 AST (SGOT) (BEAKER) (test ublr=331) 22 U/L 5-34 ALT (SGPT) (BEAKER) (test vfdh=669) 15 U/L 6-55 POCT-GLUCOSE [id number] 08:58:00 Test Item Value Reference Range Comments POC-GLUCOSE METER (BEAKER) 144 mg/dL 70-110 TESTED AT [facility] [address] [facility] (test guda=7302) [facility] [address] BASIC METABOLIC [id number] 06:00:00 Test Item Value Reference Range Comments SODIUM (BEAKER) (test 139 meq/L 136-145 ikwc=675) POTASSIUM (BEAKER) (test 4.4 meq/L 3.5-5.1 agtj=453) CHLORIDE (BEAKER) (test 98 meq/L 98-107 whln=553) CO2 (BEAKER) (test 29 meq/L 22-29 wpug=371) BLOOD UREA NITROGEN 66 mg/dL 7-21 (BEAKER) (test ihlk=174) CREATININE (BEAKER) (test 1.89 mg/dL 0.57-1.25 snxf=261) GLUCOSE RANDOM (BEAKER) 130 mg/dL 70-105 (test csyk=826) CALCIUM (BEAKER) (test 9.8 mg/dL 8.4-10.2 hdlu=957) EGFR (BEAKER) (test 26 mL/min/1.73 sq m ESTIMATED GFR IS NOT kddy=9032) ACCURATE CREATININE CLEARANCE IN PREDICTING GLOMERULAR FILTRATION RATE. ESTIMATED GFR IS NOT APPLICABLE FOR DIALYSIS PATIENTS. CBC W/PLT COUNT & AUTO [id number] 05:06:00 Test Item Value Reference Range Comments WHITE BLOOD CELL COUNT (BEAKER) (test asxe=531) 8.7 K/ L 3.5-10.5 RED BLOOD CELL COUNT (BEAKER) (test pids=040) 2.63 M/ L 3.93-5.22 HEMOGLOBIN (BEAKER) (test kxru=748) 8.1 GM/DL 11.2-15.7 HEMATOCRIT (BEAKER) (test rmdc=074) 26.4 % 34.1-44.9 MEAN CORPUSCULAR VOLUME (BEAKER) (test muwc=807) 100.4 fL 79.4-94.8 MEAN CORPUSCULAR HEMOGLOBIN (BEAKER) (test 30.8 pg 25.6-32.2 qtxo=427) MEAN CORPUSCULAR HEMOGLOBIN CONC (BEAKER) (test 30.7 GM/DL 32.2-35.5 csnl=377) RED CELL DISTRIBUTION WIDTH (BEAKER) (test 16.1 % 11.7-14.4 uymm=674) PLATELET COUNT (BEAKER) (test grss=862) 307 K/CU MM 150-450 MEAN PLATELET VOLUME (BEAKER) (test inig=877) 10.7 fL 9.4-12.3 NUCLEATED RED BLOOD CELLS (BEAKER) (test 0 /100 WBC 0-0 mlep=304) NEUTROPHILS RELATIVE PERCENT (BEAKER) (test 76 % saut=961) LYMPHOCYTES RELATIVE PERCENT (BEAKER) (test 12 % vqpo=099) MONOCYTES RELATIVE PERCENT (BEAKER) (test 8 % jpoi=626) EOSINOPHILS RELATIVE PERCENT (BEAKER) (test 1 % sake=305) BASOPHILS RELATIVE PERCENT (BEAKER) (test 1 % lrja=110) NEUTROPHILS ABSOLUTE COUNT (BEAKER) (test 6.66 K/ L 1.56-6.13 vrnq=949) LYMPHOCYTES ABSOLUTE COUNT (BEAKER) (test 1.06 K/ L 1.18-3.74 wtug=147) MONOCYTES ABSOLUTE COUNT (BEAKER) (test 0.67 K/ L 0.24-0.36 dskj=946) EOSINOPHILS ABSOLUTE COUNT (BEAKER) (test 0.09 K/ L 0.04-0.36 urfb=284) BASOPHILS ABSOLUTE COUNT (BEAKER) (test 0.07 K/ L 0.01-0.08 fvdd=560) IMMATURE GRANULOCYTES-RELATIVE PERCENT (BEAKER) 2 % 0-1 (test ptkj=6602) POCT-GLUCOSE [id number] 21:22:00 Test Item Value Reference Range Comments POC-GLUCOSE METER (BEAKER) 163 mg/dL 70-110 TESTED AT [facility] [address] [facility] (test ailj=2638) [facility] [address] CT, [id number] 19:36:00FINAL REPORT TECHNIQUE: CT of the abdomen and [...] in a nondistended gallbladder. No biliary ductal dilatation.SPLEEN: No splenomegaly.PANCREAS: No focal masses or ductal dilatation. A questionable cyst in the pancreas head measures 1.2 cm on axial image 26. ADRENALS: No adrenal nodules.KIDNEYS/URETERS: No hydronephrosis or exophytic masses. A single right upper pole punctate nonobstructing renal stone is seenon coronal images 89. PELVIC ORGANS/BLADDER: A subserosal left uterine body leiomyoma measures 2.3 cm. PERITONEUM/RETROPERITONEUM: No free air or fluid.LYMPH NODES: No lymphadenopathy.VESSELS: Mild aortic atherosclerotic calcifications. There are calcifications [...] stranding. Acute appendicitis is considered unlikely. However, correlationfor right lower quadrant pain is recommended to exclude acute appendicitis. A follow -up CT is recommended in three months to [...] renal stone is punctate. Signed: Donnell Fish MDReport Verified Date/Time: 06/07/2018 19:36:11 Reading Location: [facility] C013Y CT Body Reading Room POCT- GLUCOSE [id number] 17:03:00 Test Item Value Reference Range Comments POC-GLUCOSE METER (BEAKER) 174 mg/dL 70-110 TESTED AT [address] (test zpxp=5676) [facility] [address] POCT-GLUCOSE [id number] 12:46:00 Test Item Value Reference Range Comments POC-GLUCOSE METER (BEAKER) 137 mg/dL 70-110 TESTED AT [address] (test afay=5444) [facility] [address] POCT-GLUCOSE [id number] 07:49:00 Test Item Value Reference Range Comments POC-GLUCOSE METER (BEAKER) 157 mg/dL 70-110 TESTED AT [address] (test eumz=1851) [facility] [address] CALCIUM, [id number] 07:49:00 Test Item Value Reference Range Comments CALCIUM IONIZED (BEAKER) (test wrha=532) 1.09 mmol/L 1.12-1.27 PH, BLOOD (BEAKER) (test sbjj=4504) 7.42 BASIC METABOLIC [id number] 06:01:00 Test Item Value Reference Range Comments SODIUM (BEAKER) (test 140 meq/L 136-145 wxwr=915) POTASSIUM (BEAKER) (test 4.2 meq/L 3.5-5.1 lkyf=255) CHLORIDE (BEAKER) (test 100 meq/L 98-107 xyjm=608) CO2 (BEAKER) (test 29 meq/L 22-29 mhfb=681) BLOOD UREA NITROGEN 58 mg/dL 7-21 (BEAKER) (test shms=481) CREATININE (BEAKER) (test 1.76 mg/dL 0.57-1.25 teqd=127) GLUCOSE RANDOM (BEAKER) 132 mg/dL 70-105 (test docq=279) CALCIUM (BEAKER) (test 9.7 mg/dL 8.4-10.2 pgdb=145) EGFR (BEAKER) (test 28 mL/min/1.73 sq m ESTIMATED GFR IS NOT odob=1774) ACCURATE CREATININE CLEARANCE IN PREDICTING GLOMERULAR FILTRATION RATE. ESTIMATED GFR IS NOT APPLICABLE FOR DIALYSIS PATIENTS. [id number] 05:56:00 Test Item Value Reference Range Comments PHOSPHORUS (BEAKER) (test fzoy=741) 4.1 mg/dL 2.3-4.7 [id number] 05:56:00 Test Item Value Reference Range Comments MAGNESIUM (BEAKER) (test shhj=882) 2.2 mg/dL 1.6-2.6 CBC W/PLT COUNT & AUTO [id number] 05:10:00 Test Item Value Reference Range Comments WHITE BLOOD CELL COUNT (BEAKER) (test ebsm=389) 7.5 K/ L 3.5-10.5 RED BLOOD CELL COUNT (BEAKER) (test uncq=273) 2.60 M/ L 3.93-5.22 HEMOGLOBIN (BEAKER) (test uxav=574) 7.8 GM/DL 11.2-15.7 HEMATOCRIT (BEAKER) (test ibyr=313) 25.8 % 34.1-44.9 MEAN CORPUSCULAR VOLUME (BEAKER) (test jwul=195) 99.2 fL 79.4-94.8 MEAN CORPUSCULAR HEMOGLOBIN (BEAKER) (test 30.0 pg 25.6-32.2 yffp=122) MEAN CORPUSCULAR HEMOGLOBIN CONC (BEAKER) (test 30.2 GM/DL 32.2-35.5 lxsj=157) RED CELL DISTRIBUTION WIDTH (BEAKER) (test 16.0 % 11.7-14.4 wrxn=881) PLATELET COUNT (BEAKER) (test geab=907) 259 K/CU MM 150-450 MEAN PLATELET VOLUME (BEAKER) (test javr=926) 10.3 fL 9.4-12.3 NUCLEATED RED BLOOD CELLS (BEAKER) (test 0 /100 WBC 0-0 sapn=452) NEUTROPHILS RELATIVE PERCENT (BEAKER) (test 72 % ubjd=774) LYMPHOCYTES RELATIVE PERCENT (BEAKER) (test 14 % ocdk=980) MONOCYTES RELATIVE PERCENT (BEAKER) (test 9 % iohz=880) EOSINOPHILS RELATIVE PERCENT (BEAKER) (test 4 % nkhc=883) BASOPHILS RELATIVE PERCENT (BEAKER) (test 1 % ewqm=966) NEUTROPHILS ABSOLUTE COUNT (BEAKER) (test 5.36 K/ L 1.56-6.13 lhbq=135) LYMPHOCYTES ABSOLUTE COUNT (BEAKER) (test 1.02 K/ L 1.18-3.74 iifs=028) MONOCYTES ABSOLUTE COUNT (BEAKER) (test 0.65 K/ L 0.24-0.36 oawc=466) EOSINOPHILS ABSOLUTE COUNT (BEAKER) (test 0.28 K/ L 0.04-0.36 wreb=545) BASOPHILS ABSOLUTE COUNT (BEAKER) (test 0.05 K/ L 0.01-0.08 cbog=166) IMMATURE GRANULOCYTES-RELATIVE PERCENT (BEAKER) 2 % 0-1 (test vmws=4888) POCT-GLUCOSE [id number] 21:01:00 Test Item Value Reference Range Comments POC-GLUCOSE METER (BEAKER) 161 mg/dL 70-110 TESTED AT [address] (test yjwq=1375) [place] [address] POCT-GLUCOSE [id number] 17:14:00 Test Item Value Reference Range Comments POC-GLUCOSE METER (BEAKER) 160 mg/dL 70-110 TESTED AT [address] (test bacq=0598) [place] [address] POCT-GLUCOSE [id number] 12:13:00 Test Item Value Reference Range Comments POC-GLUCOSE METER (BEAKER) 143 mg/dL 70-110 TESTED AT [address] (test ddza=3994) [place] [address] POCT-GLUCOSE [id number] 07:22:00 Test Item Value Reference Range Comments POC-GLUCOSE METER (BEAKER) 147 mg/dL 70-110 TESTED AT [address] (test aepa=3708) [place] [address] BASIC METABOLIC [id number] 06:14:00 Test Item Value Reference Range Comments SODIUM (BEAKER) (test 141 meq/L 136-145 dmzf=416) POTASSIUM (BEAKER) (test 4.3 meq/L 3.5-5.1 ushq=588) CHLORIDE (BEAKER) (test 104 meq/L 98-107 ueph=968) CO2 (BEAKER) (test 28 meq/L 22-29 omeb=309) BLOOD UREA NITROGEN 60 mg/dL 7-21 (BEAKER) (test fvvn=254) CREATININE (BEAKER) (test 1.90 mg/dL 0.57-1.25 akya=033) GLUCOSE RANDOM (BEAKER) 152 mg/dL 70-105 (test dwqd=597) CALCIUM (BEAKER) (test 9.4 mg/dL 8.4-10.2 pzhr=471) EGFR (BEAKER) (test 26 mL/min/1.73 sq m ESTIMATED GFR IS NOT npdi=3945) ACCURATE CREATININE CLEARANCE IN PREDICTING GLOMERULAR FILTRATION RATE. ESTIMATED GFR IS NOT APPLICABLE FOR DIALYSIS PATIENTS. CBC W/PLT COUNT & AUTO [id number] 05:32:00 Test Item Value Reference Range Comments WHITE BLOOD CELL COUNT (BEAKER) (test gswr=816) 8.1 K/ L 3.5-10.5 RED BLOOD CELL COUNT (BEAKER) (test ivpc=939) 2.28 M/ L 3.93-5.22 HEMOGLOBIN (BEAKER) (test gowy=133) 7.1 GM/DL 11.2-15.7 HEMATOCRIT (BEAKER) (test unlg=528) 23.1 % 34.1-44.9 MEAN CORPUSCULAR VOLUME (BEAKER) (test epqt=292) 101.3 fL 79.4-94.8 MEAN CORPUSCULAR HEMOGLOBIN (BEAKER) (test 31.1 pg 25.6-32.2 lrgq=372) MEAN CORPUSCULAR HEMOGLOBIN CONC (BEAKER) (test 30.7 GM/DL 32.2-35.5 elbr=090) RED CELL DISTRIBUTION WIDTH (BEAKER) (test 16.7 % 11.7-14.4 jtko=090) PLATELET COUNT (BEAKER) (test ywxk=321) 233 K/CU MM 150-450 MEAN PLATELET VOLUME (BEAKER) (test kojn=122) 10.4 fL 9.4-12.3 NUCLEATED RED BLOOD CELLS (BEAKER) (test 0 /100 WBC 0-0 ngka=291) NEUTROPHILS RELATIVE PERCENT (BEAKER) (test 78 % lzqq=084) LYMPHOCYTES RELATIVE PERCENT (BEAKER) (test 9 % pvxk=203) MONOCYTES RELATIVE PERCENT (BEAKER) (test 9 % vzrx=166) EOSINOPHILS RELATIVE PERCENT (BEAKER) (test 3 % clmf=664) BASOPHILS RELATIVE PERCENT (BEAKER) (test 1 % rfch=231) NEUTROPHILS ABSOLUTE COUNT (BEAKER) (test 6.31 K/ L 1.56-6.13 wpds=907) LYMPHOCYTES ABSOLUTE COUNT (BEAKER) (test 0.70 K/ L 1.18-3.74 muqe=621) MONOCYTES ABSOLUTE COUNT (BEAKER) (test 0.74 K/ L 0.24-0.36 qmqg=891) EOSINOPHILS ABSOLUTE COUNT (BEAKER) (test 0.24 K/ L 0.04-0.36 doak=060) BASOPHILS ABSOLUTE COUNT (BEAKER) (test 0.05 K/ L 0.01-0.08 ibpw=008) IMMATURE GRANULOCYTES-RELATIVE PERCENT (BEAKER) 1 % 0-1 (test wnys=6840) POCT-GLUCOSE [id number] 21:19:00 Test Item Value Reference Range Comments POC-GLUCOSE METER (BEAKER) 178 mg/dL 70-110 TESTED AT [address] (test nkor=0244) [place] [address] POCT-GLUCOSE [id number] 20:47:00 Test Item Value Reference Range Comments POC-GLUCOSE METER (BEAKER) 172 mg/dL 70-110 TESTED AT [address] (test ibfu=8894) [place] [address] POCT-GLUCOSE [id number] 17:56:00 Test Item Value Reference Range Comments POC-GLUCOSE METER (BEAKER) 167 mg/dL 70-110 TESTED AT [address] (test siea=2677) [place] [address] URINALYSIS W/ REFLEX URINE [id number] 15:07:00 Test Item Value Reference Range Comments COLOR (BEAKER) (test iwem=350) Light Yellow CLARITY (BEAKER) (test gahj=773) Hazy SPECIFIC GRAVITY UA (BEAKER) (test lbum=538) 1.008 1.001-1.035 PH UA (BEAKER) (test dvle=102) 5.0 5.0-8.0 PROTEIN UA (BEAKER) (test loxq=894) 30 mg/dL Negative GLUCOSE UA (BEAKER) (test lmob=009) Negative Negative KETONES UA (BEAKER) (test uuas=020) Negative Negative BILIRUBIN UA (BEAKER) (test qqlf=526) Negative Negative BLOOD UA (BEAKER) (test hluo=729) Negative Negative NITRITE UA (BEAKER) (test tuiz=836) Positive Negative LEUKOCYTE ESTERASE UA (BEAKER) (test enmg=470) Large Negative UROBILINOGEN UA (BEAKER) (test uhfo=741) 0.2 mg/dL 0.2-1.0 RBC UA (BEAKER) (test ruzk=095) 1 /HPF WBC UA (BEAKER) (test nueg=735) 236 /HPF BACTERIA (BEAKER) (test xbyo=899) Few MUCUS (BEAKER) (test xdho=9032) Rare SQUAMOUS EPITHELIAL (BEAKER) (test cads=887) < /HPF SOURCE(BEAKER) (test qymx=4742) CBC W/PLT COUNT & AUTO [id number] 14:31:00 Test Item Value Reference Range Comments WHITE BLOOD CELL COUNT (BEAKER) (test zgol=946) 8.5 K/ L 3.5-10.5 RED BLOOD CELL COUNT (BEAKER) (test dklk=354) 2.34 M/ L 3.93-5.22 HEMOGLOBIN (BEAKER) (test ijfi=446) 7.3 GM/DL 11.2-15.7 HEMATOCRIT (BEAKER) (test cmbb=036) 23.8 % 34.1-44.9 MEAN CORPUSCULAR VOLUME (BEAKER) (test pwjv=617) 101.7 fL 79.4-94.8 MEAN CORPUSCULAR HEMOGLOBIN (BEAKER) (test 31.2 pg 25.6-32.2 tpio=534) MEAN CORPUSCULAR HEMOGLOBIN CONC (BEAKER) (test 30.7 GM/DL 32.2-35.5 dbcx=864) RED CELL DISTRIBUTION WIDTH (BEAKER) (test 16.7 % 11.7-14.4 xmvq=657) PLATELET COUNT (BEAKER) (test locp=866) 247 K/CU MM 150-450 MEAN PLATELET VOLUME (BEAKER) (test ucbb=433) 10.1 fL 9.4-12.3 NUCLEATED RED BLOOD CELLS (BEAKER) (test 0 /100 WBC 0-0 lhyc=689) NEUTROPHILS RELATIVE PERCENT (BEAKER) (test 79 % ttms=200) LYMPHOCYTES RELATIVE PERCENT (BEAKER) (test 10 % ydrg=854) MONOCYTES RELATIVE PERCENT (BEAKER) (test 6 % xtgi=559) EOSINOPHILS RELATIVE PERCENT (BEAKER) (test 3 % ueqq=408) BASOPHILS RELATIVE PERCENT (BEAKER) (test 1 % zvto=588) NEUTROPHILS ABSOLUTE COUNT (BEAKER) (test 6.76 K/ L 1.56-6.13 lytp=345) LYMPHOCYTES ABSOLUTE COUNT (BEAKER) (test 0.87 K/ L 1.18-3.74 iqxf=960) MONOCYTES ABSOLUTE COUNT (BEAKER) (test 0.52 K/ L 0.24-0.36 jbou=031) EOSINOPHILS ABSOLUTE COUNT (BEAKER) (test 0.24 K/ L 0.04-0.36 mzhl=358) BASOPHILS ABSOLUTE COUNT (BEAKER) (test 0.05 K/ L 0.01-0.08 efhl=451) IMMATURE GRANULOCYTES-RELATIVE PERCENT (BEAKER) 1 % 0-1 (test dlzc=7454) BASIC METABOLIC [id number] 05:32:00 Test Item Value Reference Range Comments SODIUM (BEAKER) (test 140 meq/L 136-145 umlp=779) POTASSIUM (BEAKER) (test 4.7 meq/L 3.5-5.1 mtwf=982) CHLORIDE (BEAKER) (test 105 meq/L 98-107 eqet=827) CO2 (BEAKER) (test 26 meq/L 22-29 kxun=070) BLOOD UREA NITROGEN 64 mg/dL 7-21 (BEAKER) (test pseg=933) CREATININE (BEAKER) (test 2.29 mg/dL 0.57-1.25 shjc=909) GLUCOSE RANDOM (BEAKER) 143 mg/dL 70-105 (test pjju=889) CALCIUM (BEAKER) (test 8.8 mg/dL 8.4-10.2 maay=427) EGFR (BEAKER) (test 21 mL/min/1.73 sq m ESTIMATED GFR IS NOT qtlx=9538) ACCURATE CREATININE CLEARANCE IN PREDICTING GLOMERULAR FILTRATION RATE. ESTIMATED GFR IS NOT APPLICABLE FOR DIALYSIS PATIENTS. POCT-GLUCOSE [id number] 21:13:00 Test Item Value Reference Range Comments POC-GLUCOSE METER (BEAKER) 273 mg/dL 70-110 TESTED AT [address] (test occb=2441) [facility] [id number] POCT-GLUCOSE [id number] 13:05:00 Test Item Value Reference Range Comments POC-GLUCOSE METER (BEAKER) 289 mg/dL 70-110 TESTED AT [place] [id number] [facility] (test wxkx=8941) [facility] [address] POCT-GLUCOSE [id number] 08:18:00 Test Item Value Reference Range Comments POC-GLUCOSE METER (BEAKER) 201 mg/dL 70-110 TESTED AT [address] (test gpcy=6701) [facility] [id number] BASIC METABOLIC [id number] 08:03:00 Test Item Value Reference Range Comments SODIUM (BEAKER) (test 141 meq/L 136-145 qwvp=300) POTASSIUM (BEAKER) (test 4.5 meq/L 3.5-5.1 nnqd=424) CHLORIDE (BEAKER) (test 110 meq/L 98-107 xiqc=883) CO2 (BEAKER) (test 24 meq/L 22-29 qmwg=035) BLOOD UREA NITROGEN 59 mg/dL 7-21 (BEAKER) (test mhnn=769) CREATININE (BEAKER) (test 2.24 mg/dL 0.57-1.25 fjns=135) GLUCOSE RANDOM (BEAKER) 128 mg/dL 70-105 (test cnop=227) CALCIUM (BEAKER) (test 8.9 mg/dL 8.4-10.2 eqyw=239) EGFR (BEAKER) (test 21 mL/min/1.73 sq m ESTIMATED GFR IS NOT vqhr=9631) ACCURATE CREATININE CLEARANCE IN PREDICTING GLOMERULAR FILTRATION RATE. ESTIMATED GFR IS NOT APPLICABLE FOR DIALYSIS PATIENTS. CALCIUM, [id number] 05:43:00 Test Item Value Reference Range Comments CALCIUM IONIZED (BEAKER) (test vozp=175) 1.12 mmol/L 1.12-1.27 PH, BLOOD (BEAKER) (test dfsd=2805) 7.34 CBC W/PLT COUNT & AUTO [id number] 05:36:00 Test Item Value Reference Range Comments WHITE BLOOD CELL COUNT (BEAKER) (test turn=606) 6.7 K/ L 3.5-10.5 RED BLOOD CELL COUNT (BEAKER) (test kwsh=930) 2.28 M/ L 3.93-5.22 HEMOGLOBIN (BEAKER) (test qtgr=732) 7.0 GM/DL 11.2-15.7 HEMATOCRIT (BEAKER) (test jubo=678) 23.6 % 34.1-44.9 MEAN CORPUSCULAR VOLUME (BEAKER) (test gcpt=626) 103.5 fL 79.4-94.8 MEAN CORPUSCULAR HEMOGLOBIN (BEAKER) (test 30.7 pg 25.6-32.2 vxfs=524) MEAN CORPUSCULAR HEMOGLOBIN CONC (BEAKER) (test 29.7 GM/DL 32.2-35.5 lqgz=968) RED CELL DISTRIBUTION WIDTH (BEAKER) (test 17.6 % 11.7-14.4 drcp=540) PLATELET COUNT (BEAKER) (test lsxd=879) 237 K/CU MM 150-450 MEAN PLATELET VOLUME (BEAKER) (test nbdo=594) 10.3 fL 9.4-12.3 NUCLEATED RED BLOOD CELLS (BEAKER) (test 0 /100 WBC 0-0 svbm=779) NEUTROPHILS RELATIVE PERCENT (BEAKER) (test 77 % nlmi=068) LYMPHOCYTES RELATIVE PERCENT (BEAKER) (test 10 % hnei=506) MONOCYTES RELATIVE PERCENT (BEAKER) (test 7 % lwfs=554) EOSINOPHILS RELATIVE PERCENT (BEAKER) (test 5 % amqc=693) BASOPHILS RELATIVE PERCENT (BEAKER) (test 1 % nvdq=879) NEUTROPHILS ABSOLUTE COUNT (BEAKER) (test 5.16 K/ L 1.56-6.13 jmwj=820) LYMPHOCYTES ABSOLUTE COUNT (BEAKER) (test 0.65 K/ L 1.18-3.74 aggp=671) MONOCYTES ABSOLUTE COUNT (BEAKER) (test 0.49 K/ L 0.24-0.36 ycvl=279) EOSINOPHILS ABSOLUTE COUNT (BEAKER) (test 0.30 K/ L 0.04-0.36 cfrk=983) BASOPHILS ABSOLUTE COUNT (BEAKER) (test 0.03 K/ L 0.01-0.08 ojvn=317) IMMATURE GRANULOCYTES-RELATIVE PERCENT (BEAKER) 1 % 0-1 (test iaaf=9794) POCT-GLUCOSE [id number] 21:38:00 Test Item Value Reference Range Comments POC-GLUCOSE METER (BEAKER) 159 mg/dL 70-110 TESTED AT [facility] [address] [facility] (test tbqc=3616) [facility] [address] URINALYSIS W/ REFLEX URINE [id number] 17:26:00 Test Item Value Reference Range Comments COLOR (BEAKER) (test fper=342) Light Yellow CLARITY (BEAKER) (test ikum=452) Hazy SPECIFIC GRAVITY UA (BEAKER) (test xfdd=297) 1.008 1.001-1.035 PH UA (BEAKER) (test imyb=565) 5.0 5.0-8.0 PROTEIN UA (BEAKER) (test waap=908) 20 mg/dL Negative GLUCOSE UA (BEAKER) (test vayn=221) Negative Negative KETONES UA (BEAKER) (test lpys=816) Negative Negative BILIRUBIN UA (BEAKER) (test kfef=906) Negative Negative BLOOD UA (BEAKER) (test pnvu=117) Negative Negative NITRITE UA (BEAKER) (test dent=180) Positive Negative LEUKOCYTE ESTERASE UA (BEAKER) (test pwtc=298) Large Negative UROBILINOGEN UA (BEAKER) (test ychu=444) 0.2 mg/dL 0.2-1.0 RBC UA (BEAKER) (test fjns=994) 11 /HPF WBC UA (BEAKER) (test ylqu=757) 254 /HPF BACTERIA (BEAKER) (test iuwg=078) Many MUCUS (BEAKER) (test wohn=3944) Rare SQUAMOUS EPITHELIAL (BEAKER) (test drkn=350) 5 /HPF HYALINE CASTS (BEAKER) (test czpp=445) 4 /LPF CRYSTALS, URINE (BEAKER) (test vxsg=1620) Occasional YEAST (BEAKER) (test btrs=0559) Occasional SOURCE(BEAKER) (test wmug=6322) POCT-GLUCOSE [id number] 17:21:00 Test Item Value Reference Range Comments POC-GLUCOSE METER (BEAKER) 144 mg/dL 70-110 TESTED AT [facility] [address] [facility] (test srke=5473) [place] [id number] POCT-GLUCOSE [id number] 12:30:00 Test Item Value Reference Range Comments POC-GLUCOSE METER (BEAKER) 149 mg/dL 70-110 TESTED AT [facility] [address] [facility] (test iybh=8640) [place] [id number] RAD, CHEST, 1 VIEW, NON [id number] 09:25:00Reason for exam:->edemaShould this be performed at the bedside?->YesFINAL REPORT Portable chest. CLINICAL HISTORY: edema. COMPARISON STUDY: 2018. FINDINGS: The cardiac silhouette is enlarged. The pulmonary parenchyma demonstrates mild interstitial markings with atelectatic changes, improved from previous. No pneumothorax is seen. Degenerative changes are noted. IMPRESSION: Improvement in pulmonary opacities. Signed: Jamison Orozco MDReport Verified Date/Time: 06/03/2018 09:25:59 Reading Location: [facility] Radiology Reading Room POCT-GLUCOSE [id number] 08:34:00 Test Item Value Reference Range Comments POC-GLUCOSE METER (BEAKER) 160 mg/dL 70-110 TESTED AT [facility] [address] [facility] (test onau=0304) [facility] [address] CALCIUM, [id number] 06:35:00 Test Item Value Reference Range Comments CALCIUM IONIZED (BEAKER) (test okny=660) 0.94 mmol/L 1.12-1.27 PH, BLOOD (BEAKER) (test tfzd=6653) 7.34 COMPREHENSIVE METABOLIC [id number] 06:17:00 Test Item Value Reference Range Comments TOTAL PROTEIN (BEAKER) 7.4 gm/dL 6.0-8.3 (test bvge=100) ALBUMIN (BEAKER) (test 3.3 g/dL 3.5-5.0 zjbq=2263) ALKALINE PHOSPHATASE 87 U/L 40-150 (BEAKER) (test tnja=151) BILIRUBIN TOTAL (BEAKER) 0.4 mg/dL 0.2-1.2 (test zzxb=817) SODIUM (BEAKER) (test 141 meq/L 136-145 bsgw=175) POTASSIUM (BEAKER) (test 4.7 meq/L 3.5-5.1 ozfs=238) CHLORIDE (BEAKER) (test 112 meq/L 98-107 noao=766) CO2 (BEAKER) (test 19 meq/L 22-29 zobz=591) BLOOD UREA NITROGEN 64 mg/dL 7-21 (BEAKER) (test hvii=314) CREATININE (BEAKER) (test 2.62 mg/dL 0.57-1.25 sbjb=451) GLUCOSE RANDOM (BEAKER) 162 mg/dL 70-105 (test tfmf=832) CALCIUM (BEAKER) (test 8.7 mg/dL 8.4-10.2 qtkz=990) AST (SGOT) (BEAKER) (test 11 U/L 5-34 stgv=879) ALT (SGPT) (BEAKER) (test 11 U/L 6-55 xeqs=102) EGFR (BEAKER) (test 18 mL/min/1.73 sq m ESTIMATED GFR IS NOT ahlu=8312) ACCURATE CREATININE CLEARANCE IN PREDICTING GLOMERULAR FILTRATION RATE. ESTIMATED GFR IS NOT APPLICABLE FOR DIALYSIS PATIENTS. [id number] 05:51:00 Test Item Value Reference Range Comments PHOSPHORUS (BEAKER) (test psav=415) 4.6 mg/dL 2.3-4.7 [id number] 05:51:00 Test Item Value Reference Range Comments MAGNESIUM (BEAKER) (test aatw=176) 2.7 mg/dL 1.6-2.6 CBC W/PLT COUNT & AUTO [id number] 05:51:00 Test Item Value Reference Range Comments WHITE BLOOD CELL COUNT (BEAKER) (test blop=611) 10.8 K/ L 3.5-10.5 RED BLOOD CELL COUNT (BEAKER) (test wuxr=071) 2.30 M/ L 3.93-5.22 HEMOGLOBIN (BEAKER) (test amqf=813) 7.0 GM/DL 11.2-15.7 HEMATOCRIT (BEAKER) (test qpyy=356) 23.9 % 34.1-44.9 MEAN CORPUSCULAR VOLUME (BEAKER) (test oqui=687) 103.9 fL 79.4-94.8 MEAN CORPUSCULAR HEMOGLOBIN (BEAKER) (test 30.4 pg 25.6-32.2 qmpa=806) MEAN CORPUSCULAR HEMOGLOBIN CONC (BEAKER) (test 29.3 GM/DL 32.2-35.5 dhbw=035) RED CELL DISTRIBUTION WIDTH (BEAKER) (test 18.0 % 11.7-14.4 bdzr=155) PLATELET COUNT (BEAKER) (test pkln=093) 237 K/CU MM 150-450 MEAN PLATELET VOLUME (BEAKER) (test xece=724) 10.4 fL 9.4-12.3 NUCLEATED RED BLOOD CELLS (BEAKER) (test 0 /100 WBC 0-0 mxhz=752) NEUTROPHILS RELATIVE PERCENT (BEAKER) (test 85 % vuhg=252) LYMPHOCYTES RELATIVE PERCENT (BEAKER) (test 5 % ursy=477) MONOCYTES RELATIVE PERCENT (BEAKER) (test 6 % arsh=223) EOSINOPHILS RELATIVE PERCENT (BEAKER) (test 2 % uhcz=078) BASOPHILS RELATIVE PERCENT (BEAKER) (test 1 % lzgb=845) NEUTROPHILS ABSOLUTE COUNT (BEAKER) (test 9.20 K/ L 1.56-6.13 ffzq=097) LYMPHOCYTES ABSOLUTE COUNT (BEAKER) (test 0.52 K/ L 1.18-3.74 zvze=677) MONOCYTES ABSOLUTE COUNT (BEAKER) (test 0.69 K/ L 0.24-0.36 crvm=335) EOSINOPHILS ABSOLUTE COUNT (BEAKER) (test 0.24 K/ L 0.04-0.36 hvdo=151) BASOPHILS ABSOLUTE COUNT (BEAKER) (test 0.07 K/ L 0.01-0.08 befb=332) IMMATURE GRANULOCYTES-RELATIVE PERCENT (BEAKER) 1 % 0-1 (test cxdq=5895) POCT-GLUCOSE [id number] 05:34:00 Test Item Value Reference Range Comments POC-GLUCOSE METER (BEAKER) 175 mg/dL 70-110 TESTED AT [address] (test hcdl=8151) [facility] [address] B-TYPE NATRIURETIC FACTOR (BNP)2018-06-03 05:26:00 Test Item Value Reference Range Comments B-TYPE NATRIURETIC PEPTIDE (BEAKER) (test 502 pg/mL 0-100 eziz=109) POCT-GLUCOSE [id number] 21:27:00 Test Item Value Reference Range Comments POC-GLUCOSE METER (BEAKER) 201 mg/dL 70-110 TESTED AT [address] (test vyat=7826) [facility] [address] POCT-GLUCOSE [id number] 18:10:00 Test Item Value Reference Range Comments POC-GLUCOSE METER (BEAKER) 151 mg/dL 70-110 TESTED AT [address] (test kiux=9335) [place] [id number] POCT-GLUCOSE [id number] 12:34:00 Test Item Value Reference Range Comments POC-GLUCOSE METER (BEAKER) 227 mg/dL 70-110 TESTED AT [facility] [address] [facility] (test qqki=8680) [place] [id number] U/S, RENAL, [id number] 10:53:00Reason for exam:->AKIShould this be performed at the bedside?->YesFINAL REPORT Renal ultrasound Clinical History: Acute renal [...] evaluation of the kidneys. Signed: Kenney Sharp MDReport Verified Date/Time: 06/02/2018 10:53:55 Reading Location: [address] Ultrasound Reading Room POCT-GLUCOSE [id number] 10:32:00 Test Item Value Reference Range Comments POC-GLUCOSE METER (BEAKER) 163 mg/dL 70-110 TESTED AT [address] (test nonx=4972) [place] [id number] BASIC METABOLIC [id number] 06:49:00 Test Item Value Reference Range Comments SODIUM (BEAKER) (test 141 meq/L 136-145 zlkz=274) POTASSIUM (BEAKER) (test 4.8 meq/L 3.5-5.1 Specimen slightly bdxy=275) hemolyzed CHLORIDE (BEAKER) (test 112 meq/L 98-107 xhtv=559) CO2 (BEAKER) (test 16 meq/L 22-29 nbio=391) BLOOD UREA NITROGEN 67 mg/dL 7-21 (BEAKER) (test oktn=474) CREATININE (BEAKER) (test 3.09 mg/dL 0.57-1.25 Specimen slightly euts=974) hemolyzed GLUCOSE RANDOM (BEAKER) 132 mg/dL 70-105 (test otlz=518) CALCIUM (BEAKER) (test 8.7 mg/dL 8.4-10.2 wuzy=266) EGFR (BEAKER) (test 15 mL/min/1.73 sq m ESTIMATED GFR IS NOT xden=6989) ACCURATE CREATININE CLEARANCE IN PREDICTING GLOMERULAR FILTRATION RATE. ESTIMATED GFR IS NOT APPLICABLE FOR DIALYSIS PATIENTS. [id number] 06:37:00 Test Item Value Reference Range Comments MAGNESIUM (BEAKER) (test pnbg=739) 3.0 mg/dL 1.6-2.6 CALCIUM, [id number] 06:36:00 Test Item Value Reference Range Comments CALCIUM IONIZED (BEAKER) (test ruuc=770) 0.95 mmol/L 1.12-1.27 PH, BLOOD (BEAKER) (test nles=7157) 7.31 CBC W/PLT COUNT & AUTO [id number] 05:50:00 Test Item Value Reference Range Comments WHITE BLOOD CELL COUNT (BEAKER) (test iclb=287) 8.2 K/ L 3.5-10.5 RED BLOOD CELL COUNT (BEAKER) (test xfma=966) 2.53 M/ L 3.93-5.22 HEMOGLOBIN (BEAKER) (test trth=796) 7.8 GM/DL 11.2-15.7 HEMATOCRIT (BEAKER) (test hymx=032) 26.3 % 34.1-44.9 MEAN CORPUSCULAR VOLUME (BEAKER) (test iwhj=280) 104.0 fL 79.4-94.8 MEAN CORPUSCULAR HEMOGLOBIN (BEAKER) (test 30.8 pg 25.6-32.2 dqla=604) MEAN CORPUSCULAR HEMOGLOBIN CONC (BEAKER) (test 29.7 GM/DL 32.2-35.5 vrfe=070) RED CELL DISTRIBUTION WIDTH (BEAKER) (test 18.4 % 11.7-14.4 cbgg=007) PLATELET COUNT (BEAKER) (test kftc=893) 299 K/CU MM 150-450 MEAN PLATELET VOLUME (BEAKER) (test pbhi=366) 10.6 fL 9.4-12.3 NUCLEATED RED BLOOD CELLS (BEAKER) (test 0 /100 WBC 0-0 xlho=766) NEUTROPHILS RELATIVE PERCENT (BEAKER) (test 78 % ciuf=685) LYMPHOCYTES RELATIVE PERCENT (BEAKER) (test 10 % vwyl=943) MONOCYTES RELATIVE PERCENT (BEAKER) (test 6 % xiiy=483) EOSINOPHILS RELATIVE PERCENT (BEAKER) (test 4 % mgpi=301) BASOPHILS RELATIVE PERCENT (BEAKER) (test 1 % tpxf=113) NEUTROPHILS ABSOLUTE COUNT (BEAKER) (test 6.43 K/ L 1.56-6.13 vpcg=293) LYMPHOCYTES ABSOLUTE COUNT (BEAKER) (test 0.80 K/ L 1.18-3.74 udwf=705) MONOCYTES ABSOLUTE COUNT (BEAKER) (test 0.51 K/ L 0.24-0.36 htms=933) EOSINOPHILS ABSOLUTE COUNT (BEAKER) (test 0.36 K/ L 0.04-0.36 jnmj=810) BASOPHILS ABSOLUTE COUNT (BEAKER) (test 0.06 K/ L 0.01-0.08 ftnw=545) IMMATURE GRANULOCYTES-RELATIVE PERCENT (BEAKER) 1 % 0-1 (test ceaq=0666) RAD, CHEST, 1 VIEW, NON [id number] 04:13:00Reason for exam:->SOBShould this be performed at the bedside?->YesFINAL REPORT EXAMINATION: AP PORTABLE CHEST RADIOGRAPH CLINICAL INDICATION: Shortness of breath IMPRESSION: No comparison studies are available. The enlarged heart, bilateral relatively symmetric lung opacities and suspected superimposed pleural effusions are concerning for fluid overload/heart failure. The more confluent lung opacities are favored to reflect atelectasis. An underlying pneumonia or mass lesion cannot be excluded. The patient is status post a right shoulder arthroplasty. No definite evidence of an acute osseous abnormality or pneumothorax. Signed: Cheri DamonMDReport Verified Date/Time: 06/02/2018 04:13 :47 Reading Location: [address] Reading Room B-TYPE NATRIURETIC FACTOR ( BNP)2018-06-02 00:11:00 Test Item Value Reference Range Comments B-TYPE NATRIURETIC PEPTIDE (BEAKER) (test 622 pg/mL 0-100 sklp=946) POCT-GLUCOSE [id number] 21:23:00 Test Item Value Reference Range Comments POC-GLUCOSE METER (BEAKER) 220 mg/dL 70-110 TESTED AT [address] (test awhp=3862) [place] [id number] CREATININE, RANDOM [id number] 20:19:00 Test Item Value Reference Range Comments CREATININE URINE (BEAKER) (test lisb=631) 55.7 mg/dL Reference Range: No NormalsPROTEIN, RANDOM [id number] 20:19:00 Test Item Value Reference Range Comments PROTEIN, URINE (BEAKER) (test lbqm=0107) 31 mg/dL 0-14 POCT-GLUCOSE [id number] 17:39:00 Test Item Value Reference Range Comments POC-GLUCOSE METER (BEAKER) 198 mg/dL 70-110 TESTED AT [address] (test hnjp=4040) [place] [id number] POCT-GLUCOSE [id number] 12:44:00 Test Item Value Reference Range Comments POC-GLUCOSE METER (BEAKER) 214 mg/dL 70-110 TESTED AT [address] (test rvvm=0348) [place] [address] URINALYSIS WITH MICROSCOPIC IF [id number] 11:11:00 Test Item Value Reference Range Comments COLOR (BEAKER) (test njot=502) Light Yellow CLARITY (BEAKER) (test rqha=190) Clear SPECIFIC GRAVITY UA (BEAKER) (test oeue=933) 1.008 1.001-1.035 PH UA (BEAKER) (test cuak=745) 5.0 5.0-8.0 PROTEIN UA (BEAKER) (test hnzk=742) 20 mg/dL Negative GLUCOSE UA (BEAKER) (test ibsa=533) Negative Negative KETONES UA (BEAKER) (test cunw=551) Negative Negative BILIRUBIN UA (BEAKER) (test gfch=838) Negative Negative BLOOD UA (BEAKER) (test uvtm=423) Negative Negative NITRITE UA (BEAKER) (test zthd=055) Negative Negative LEUKOCYTE ESTERASE UA (BEAKER) (test xzsl=911) Small Negative UROBILINOGEN UA (BEAKER) (test jcyw=740) 0.2 mg/dL 0.2-1.0 SOURCE(BEAKER) (test fmwj=7883) URINALYSIS [id number] 11:09:00 Test Item Value Reference Range Comments RBC UA (BEAKER) (test yxyd=627) < /HPF WBC UA (BEAKER) (test zacy=889) 13 /HPF BACTERIA (BEAKER) (test yzsq=783) Rare SQUAMOUS EPITHELIAL (BEAKER) (test mwcs=008) 1 /HPF POCT-GLUCOSE [id number] 09:48:00 Test Item Value Reference Range Comments POC-GLUCOSE METER (BEAKER) 162 mg/dL 70-110 TESTED AT [facility] [address] (test cdbu=7177) [facility] [address] BASIC METABOLIC [id number] 04:46:00 Test Item Value Reference Range Comments SODIUM (BEAKER) (test 141 meq/L 136-145 snsj=715) POTASSIUM (BEAKER) (test 4.1 meq/L 3.5-5.1 haqj=021) CHLORIDE (BEAKER) (test 113 meq/L 98-107 pwdj=219) CO2 (BEAKER) (test 17 meq/L 22-29 bend=874) BLOOD UREA NITROGEN 64 mg/dL 7-21 (BEAKER) (test pcdb=652) CREATININE (BEAKER) (test 2.58 mg/dL 0.57-1.25 yzih=911) GLUCOSE RANDOM (BEAKER) 155 mg/dL 70-105 (test ndqa=685) CALCIUM (BEAKER) (test 8.3 mg/dL 8.4-10.2 jzlz=063) EGFR (BEAKER) (test 18 mL/min/1.73 sq m ESTIMATED GFR IS NOT ukqx=5634) ACCURATE CREATININE CLEARANCE IN PREDICTING GLOMERULAR FILTRATION RATE. ESTIMATED GFR IS NOT APPLICABLE FOR DIALYSIS PATIENTS. [id number] 04:45:00 Test Item Value Reference Range Comments MAGNESIUM (BEAKER) (test casv=652) 2.7 mg/dL 1.6-2.6 CBC W/PLT COUNT & AUTO [id number] 04:29:00 Test Item Value Reference Range Comments WHITE BLOOD CELL COUNT (BEAKER) (test kpug=689) 9.4 K/ L 3.5-10.5 RED BLOOD CELL COUNT (BEAKER) (test znlg=585) 2.32 M/ L 3.93-5.22 HEMOGLOBIN (BEAKER) (test fjgw=140) 7.2 GM/DL 11.2-15.7 HEMATOCRIT (BEAKER) (test brbl=621) 24.4 % 34.1-44.9 MEAN CORPUSCULAR VOLUME (BEAKER) (test jfig=144) 105.2 fL 79.4-94.8 MEAN CORPUSCULAR HEMOGLOBIN (BEAKER) (test 31.0 pg 25.6-32.2 hmvn=195) MEAN CORPUSCULAR HEMOGLOBIN CONC (BEAKER) (test 29.5 GM/DL 32.2-35.5 pbhy=174) RED CELL DISTRIBUTION WIDTH (BEAKER) (test 18.3 % 11.7-14.4 zesg=122) PLATELET COUNT (BEAKER) (test ircd=436) 249 K/CU MM 150-450 MEAN PLATELET VOLUME (BEAKER) (test jzrj=292) 10.2 fL 9.4-12.3 NUCLEATED RED BLOOD CELLS (BEAKER) (test 0 /100 WBC 0-0 zrvi=858) NEUTROPHILS RELATIVE PERCENT (BEAKER) (test 80 % cwhe=510) LYMPHOCYTES RELATIVE PERCENT (BEAKER) (test 9 % ocvz=119) MONOCYTES RELATIVE PERCENT (BEAKER) (test 6 % icof=756) EOSINOPHILS RELATIVE PERCENT (BEAKER) (test 5 % ylyk=108) BASOPHILS RELATIVE PERCENT (BEAKER) (test 1 % zjqa=872) NEUTROPHILS ABSOLUTE COUNT (BEAKER) (test 7.46 K/ L 1.56-6.13 sfmz=172) LYMPHOCYTES ABSOLUTE COUNT (BEAKER) (test 0.84 K/ L 1.18-3.74 mgnt=432) MONOCYTES ABSOLUTE COUNT (BEAKER) (test 0.52 K/ L 0.24-0.36 jagi=309) EOSINOPHILS ABSOLUTE COUNT (BEAKER) (test 0.44 K/ L 0.04-0.36 ubqz=330) BASOPHILS ABSOLUTE COUNT (BEAKER) (test 0.07 K/ L 0.01-0.08 wzrt=297) IMMATURE GRANULOCYTES-RELATIVE PERCENT (BEAKER) 1 % 0-1 (test oxjt=9406)
[2018-08-05 23:19] LABS: Protime INR 1.04
[2018-08-05 23:30] LABS: ALT/SGPT 15 U/L (12-78); AST/SGOT 13 U/L (15-37); Albumin 3.3 g/dL (3.4-5.0); Alkaline Phosphatase 94 U/L (45-117); BUN Blood Urea Nitrogen 68 mg/dL (7-18); Bicarbonate 25 mmol/L (21-32); Bilirubin Direct 0.1 mg/dL (0-0.2); Bilirubin Total 0.5 mg/dL (0.2-1.0); Glucose Level 285 mg/dL (74-106); Magnesium 3.3 mg/dL (1.8-2.4); NT PRO-BNP 5638 pg/mL (<125); Potassium 4.6 mmol/L (3.5-5.1); Protein, Total 8.5 g/dL (6.4-8.2); Sodium Level 136 mmol/L (136-145); Troponin (Emerg Dept Use Only) < 0.02 ng/mL (0.0-0.045)
[2018-08-06 00:17] LABS: Absolute Lymphocytes (CBC) 0.6 K/uL (0.7-4.9); Absolute Monocytes 0.6 K/uL (0.1-1.3); Absolute Neutrophil 10.1 K/uL (1.8-8.0); Basophils % 0.8 % (0-1.3); Eosinophils % 1.1 % (0-4.4); Hematocrit 24.1 % (36.0-45.0); Lymphocytes % 5.1 % (15.3-44.8); MPV 8.1 fL (7.6-11.3); Monocytes % 4.8 % (3.3-12.3); RBC Red Blood Cell Count 2.61 M/uL (3.86-4.86)
[2018-08-06 00:48] LABS: Blood Morphology Comment NOT SEEN (NOT SEEN); Platelet Estimate ADEQ
[2018-08-06] MEDS ORDERED: BUMETANIDE 1 MG/4 ML VIAL ONE (00:49)
--- NOTE | 2018-08-06 01:09 | ER ---
Nurse's Notes [facility] Name: Nelia Amaro Age: 73 yrs Sex: Female : 1945 Arrival Date: 08/05/2018 Time: 21:39 Bed 20 Private MD: Duglas Mascorro R Diagnosis: Acute respiratory failure with hypoxia;Acute CHF exacerbation Presentation: 08/05 22:16 Presenting complaint: Patient states: "I have been short of breath since this jd3 afternoon. at home my oxygen reading was in the upper 80's and I am having chest pressure as well. Last time this happened I was told I had fluid on my lungs and I was hospitalized.". Transition of care: patient was not received from another setting of care. Onset of symptoms was August 05, 2018. Risk Assessment: Do you want to hurt yourself or someone else? Patient reports no desire to harm self or others. Initial Sepsis Screen: Does the patient meet any 2 criteria? RR > 20 per min. No. Patient's initial sepsis screen is negative. Does the patient have a suspected source of infection? No. Patient's initial sepsis screen is negative. Care prior to arrival: None. 22:16 Method Of Arrival: Wheelchair jd3 22:16 Acuity: ISAK 3 jd3 Triage Assessment: 22:27 Respiratory: Reports shortness of breath at rest Onset: The symptoms/episode jd3 began/occurred today, the patient has moderate shortness of breath. Historical: - Allergies: 22:24 Iodinated Contrast- Oral and IV Dye; jd3 - Home Meds: 22:24 amlodipine 5 mg tab 1 tab once daily [Active]; Aricept 10 mg Oral tab 1 tab once daily jd3 [Active]; atorvastatin 20 mg Oral tab 1 tab once daily [Active]; furosemide 60 mg Oral tab 1.5 tab once daily [Active]; gabapentin 300 mg Oral cap 1 cap twice a day [Active]; Humalog 100 unit/mL Sub-Q crtg [Active]; hydralazine 50 mg Oral tab 1 tab 2 times per day [Active]; Januvia 25 mg Oral tab [Active]; levothyroxine 137 mcg tab 1 tab once daily [Active]; Tresiba FlexTouch U-100 100 unit/mL (3 mL) subcutaneous inpn [Active]; vit d3 1000 units [Active]; - PMHx: 22:24 Diabetes - NIDDM; Hyperlipidemia; Hypertension; Hypothyroidism; jd3 - PSHx: 22:24 shoulder surgery; wrist surgery; jd3 - Immunization history:: Adult Immunizations up to date. - Social history:: Smoking status: Patient/guardian denies using tobacco. - Ebola Screening: : Patient negative for fever greater than or equal to 101.5 degrees Fahrenheit, and additional compatible Ebola Virus Disease symptoms. Screenin:27 Abuse screen: Denies threats or abuse. Nutritional screening: No deficits noted. jd3 Tuberculosis screening: No symptoms or risk factors identified. Fall Risk Ambulatory Aid- None/Bed Rest/Nurse Assist (0 pts). Gait- Weak (10 pts.). Mental Status- Oriented to own ability (0 pts). Total [place]o Fall Scale indicates No Risk (0-24 pts). Assessment: 22:25 General: Appears uncomfortable, Behavior is cooperative, appropriate for age, anxious. jd3 Pain: Complains of pain in chest Quality of pain is described as aching, pressure. Neuro: Level of Consciousness is awake, alert, obeys commands, Oriented to person, place, time, situation, Appropriate for age. Cardiovascular: Heart tones present Capillary refill < 3 seconds Patient's skin is warm and dry. Rhythm is regular. Respiratory: Reports shortness of breath at rest Airway is patent Respiratory effort is labored, Respiratory pattern is symmetrical, tachypnea Breath sounds are clear bilaterally. GI: No signs and/or symptoms were reported involving the gastrointestinal system. : No signs and/or symptoms were reported regarding the genitourinary system. EENT: No signs and/or symptoms were reported regarding the EENT system. Derm: Skin is intact, Skin is dry, Skin is normal, Skin temperature is warm. Musculoskeletal: Circulation, motion, and sensation intact. Range of motion: intact in all extremities. 22:44 Reassessment: Patient appears in no apparent distress at this time. Patient is alert, jd3 oriented x 3, equal unlabored respirations, skin warm/dry/pink. 23:45 Reassessment: Patient appears in no apparent distress at this time. Patient and/or jd3 family updated on plan of care and expected duration. Pain level reassessed. Patient is alert, oriented x 3, equal unlabored respirations, skin warm/dry/pink. 06/01 00:30 Reassessment: Patient appears in no apparent distress at this time. Patient and/or jd3 family updated on plan of care and expected duration. Pain level reassessed. Patient is alert, oriented x 3, equal unlabored respirations, skin warm/dry/pink. 01:00 Reassessment: Patient appears in no apparent distress at this time. Patient and/or jd3 family updated on plan of care and expected duration. Pain level reassessed. Patient is alert, oriented x 3, equal unlabored respirations, skin warm/dry/pink. dress bed sore on pt left gluteus yen. turned pt to right side. 02:12 Reassessment: Patient appears in no apparent distress at this time. Patient and/or jd3 family updated on plan of care and expected duration. Pain level reassessed. Patient is alert, oriented x 3, equal unlabored respirations, skin warm/dry/pink. pt resting in bed with eyes closed, even and unlabored respirations, with no signs of distress. Vital Signs: 08/05 22:24 BP 147 / 56; Pulse 80; Resp 25 S; Temp 98.7(O); Pulse Ox 79% on R/A; Weight 79.83 kg [facility] (R); Height 4 ft. 9 in. (144.78 cm) (R); Pain 7/10; 22:26 Pulse Ox 94% on 4 lpm NC; jd3 22:44 BP 104 / 76; Pulse 73; Resp 18 S; Pulse Ox 94% on 4 lpm NC; jd3 23:30 BP 138 / 63; Pulse 70; Resp 18 S; Pulse Ox 95% on 3 lpm NC; jd3 08/06 00:30 BP 133 / 56; Pulse 70; Resp 16 S; Pulse Ox 95% on 3 lpm NC; jd3 01:30 BP 139 / 54; Pulse 69; Resp 18 S; Pulse Ox 96% on 3 lpm NC; Pain 3/10; jd3 02:01 BP 132 / 56; Pulse 68; Resp 16 S; Pulse Ox 96% on 3 lpm NC; Pain 3/10; d3 08/05 22:24 Body Mass Index 38.08 (79.83 kg, 144.78 cm) [facility] 08/05 22:24 pt placed on Oxygen, provider notified jd3 ED Course: 21:39 Patient arrived in ED. es 21:40 Duglas Mascorro MD is Private Physician. es 22:15 Nelson Vaqzuez, RN is Primary Nurse. jd3 22:18 Triage completed. jd3 22:25 Arm band placed on. EKG completed in triage. Results shown to MD. jd3 22:47 Inserted saline lock: 22 gauge in left antecubital area, using aseptic technique. Blood oe collected. 22:48 Patient has correct armband on for positive identification. Bed in low position. Call jd3 light in reach. Side rails up X2. Adult w/ patient. 22:49 XRAY Chest (1 view) In Process Unspecified. EDMS 08/06 00:06 Leo Lopez MD is Attending Physician. ps1 00:20 Notified ED physician of a critical lab result(s). 7.8 Hgb. ak1 01:07 Duglas Mascorro MD is Hospitalizing Provider. ps1 02:07 No provider procedures requiring assistance completed. IV is patent, is intact, with jd3 fluids infusing freely, with good blood return, Patient admitted, IV remains in place. Administered Medications: 00:45 Drug: Bumex 1 mg Route: IVP; Site: left antecubital; jd3 01:45 Follow up: Response: No adverse reaction jd3 Outcome: 01:08 Decision to Hospitalize by Provider. ps1 02:12 Admitted to Tele accompanied by tech, via stretcher, room 221, with oxygen, with chart, jd3 Report called to Jessica BURGER 02:12 Condition: stable 02:12 Instructed on the need for admit, Demonstrated understanding of instructions. 02:25 Patient left the ED. jd3 Signatures: Dispatcher [employer] EDVT Jossie Brito Amber, RN RN ak1 Amado Angel Jonathon, RN RN jd3 Leo Lopez MD MD ps1 Corrections: (The following items were deleted from the chart) 08/05 22:27 22:25 Respiratory: Airway is patent Respiratory effort is labored, Respiratory pattern jd3 is symmetrical, tachypnea jd3 22:30 22:25 Respiratory: Reports shortness of breath at rest Airway is patent Respiratory jd3 effort is labored, Respiratory pattern is symmetrical, tachypnea jd3 22:48 22:24 BP 147 / 56; Pulse 80bpm; Resp 25bpm; Spontaneous; Pulse Ox 94% 4 lpm Nasal jd3 Cannula; Temp 98.7F Oral; 79.83 kg Reported; Height 4 ft. 9 in. Reported; BMI: 38.0; Pain 7/10; jd3
[2018-08-06] MEDS ORDERED: ACETAMINOPHEN 500 MG TAB PO PRN (01:10)
[2018-08-06] MEDS ORDERED: ONDANSETRON 4 MG/2 ML VIAL IV PRN (01:10)
--- NOTE | 2018-08-06 01:10 | EDPHYS ---
Physician Documentation [facility] Name: Nelia Amaro Age: 73 yrs Sex: Female : 1945 Arrival Date: 08/05/2018 Time: 21:39 Bed 20 Private MD: Duglas Mascorro R ED Physician Leo Lopez HPI: 08/06 00:15 This 73 yrs old Female presents to ER via Wheelchair with complaints of ps1 Breathing Difficulty. 00:15 patient with hx of CHF recently admitted in June and transferred to SNF in [place] [address] for CHF and decompensation in July. She states that she has been doing well since being discharged with intermittent shortness of breath. She reportedly woke up this morning and was ok then throughout the day started becoming more short of breath with exertion. She was hypoxic at home at 85% SPO2 and came to ED for evaluation. She feels better on O2 aqnd 94% on O2. . Historical: - Allergies: 08/05 22:24 Iodinated Contrast- Oral and IV Dye; jd3 - Home Meds: 22:24 amlodipine 5 mg tab 1 tab once daily [Active]; Aricept 10 mg Oral tab 1 tab once daily jd3 [Active]; atorvastatin 20 mg Oral tab 1 tab once daily [Active]; furosemide 60 mg Oral tab 1.5 tab once daily [Active]; gabapentin 300 mg Oral cap 1 cap twice a day [Active]; Humalog 100 unit/mL Sub-Q crtg [Active]; hydralazine 50 mg Oral tab 1 tab 2 times per day [Active]; Januvia 25 mg Oral tab [Active]; levothyroxine 137 mcg tab 1 tab once daily [Active]; Tresiba FlexTouch U-100 100 unit/mL (3 mL) subcutaneous inpn [Active]; vit d3 1000 units [Active]; - PMHx: 22:24 Diabetes - NIDDM; Hyperlipidemia; Hypertension; Hypothyroidism; jd3 - PSHx: 22:24 shoulder surgery; wrist surgery; jd3 - Immunization history:: Adult Immunizations up to date. - Social history:: Smoking status: Patient/guardian denies using tobacco. - Ebola Screening: : Patient negative for fever greater than or equal to 101.5 degrees Fahrenheit, and additional compatible Ebola Virus Disease symptoms. ROS: 08/06 00:15 Constitutional: Negative for fever, chills, and weight loss, Eyes: Negative for injury, ps1 pain, redness, and discharge, ENT: Negative for injury, pain, and discharge, Cardiovascular: Negative for chest pain, palpitations, and edema, Abdomen/GI: Negative for abdominal pain, nausea, vomiting, diarrhea, and constipation, Back: Negative for injury and pain, MS/Extremity: Negative for injury and deformity, Skin: Negative for injury, rash, and discoloration, Neuro: Negative for headache, weakness, numbness, tingling, and seizure, Psych: Negative for depression, anxiety, suicide ideation, homicidal ideation, and hallucinations. Respiratory: Positive for orthopnea, shortness of breath, at rest. Exam: 00:15 Constitutional: This is a well developed, well nourished patient who is awake, alert, ps1 and in no acute distress. Head/Face: Normocephalic, atraumatic. Eyes: Pupils equal round and reactive to light, extra-ocular motions intact. Lids and lashes normal. Conjunctiva and sclera are non-icteric and not injected. Chest/axilla: Normal chest wall appearance and motion. Nontender with no deformity. No lesions are appreciated. Cardiovascular: Regular rate and rhythm. No gallops, murmurs, or rubs. Normal PMI, no JVD. No pulse deficits. Abdomen/GI: Soft, non-tender, with normal bowel sounds. No distension or tympany. No guarding or rebound. No evidence of tenderness throughout. Back: No spinal tenderness. No costovertebral tenderness. Full range of motion. MS/ Extremity: Pulses equal, no cyanosis. Neurovascular intact. Full, normal range of motion. Neuro: Awake and alert, GCS 15, oriented to person, place, time, and situation. Cranial nerves II-XII grossly intact. Sensory grossly intact. Psych: Awake, alert, with orientation to person, place and time. Behavior, mood, and affect are within normal limits. 00:15 Respiratory: the patient does not display signs of respiratory distress, Respirations: normal, Breath sounds: rhonchi, that are moderate, are heard in the left posterior upper lobe and right posterior upper lobe. Vital Signs: 08/05 22:24 BP 147 / 56; Pulse 80; Resp 25 S; Temp 98.7(O); Pulse Ox 79% on R/A; Weight 79.83 kg jd3 (R); Height 4 ft. 9 in. (144.78 cm) (R); Pain 7/10; 22:26 Pulse Ox 94% on 4 lpm NC; jd3 22:44 BP 104 / 76; Pulse 73; Resp 18 S; Pulse Ox 94% on 4 lpm NC; jd3 23:30 BP 138 / 63; Pulse 70; Resp 18 S; Pulse Ox 95% on 3 lpm NC; jd3 08/06 00:30 BP 133 / 56; Pulse 70; Resp 16 S; Pulse Ox 95% on 3 lpm NC; jd3 01:30 BP 139 / 54; Pulse 69; Resp 18 S; Pulse Ox 96% on 3 lpm NC; Pain 10; jd3 02:01 BP 132 / 56; Pulse 68; Resp 16 S; Pulse Ox 96% on 3 lpm NC; Pain 310; jd3 08/05 22:24 Body Mass Index 38.08 (79.83 kg, 144.78 cm) j 08/05 22:24 pt placed on Oxygen, provider notified jd3 MDM: 08/06 00:13 Patient medically screened. ps1 08/05 22:15 Order name: Basic Metabolic Panel; Complete Time: 00:14 [facility] 08/05 22:15 Order name: CBC with Diff; Complete Time: 00:50 d3 08/05 22:15 Order name: LFT's; Complete Time: 00:14 d3 08/05 22:15 Order name: Magnesium; Complete Time: 00:14 d3 08/05 22:15 Order name: NT PRO-BNP; Complete Time: 00:14 d3 08/05 22:15 Order name: PT-INR; Complete Time: 00:14 d3 08/05 22:15 Order name: Troponin (emerg Dept Use Only); Complete Time: 00:14 jd3 08/06 00:28 Order name: Manual Differential; Complete Time: 00:50 EDMS 08/06 01:15 Order name: Basic Metabolic Panel EDMS 08/06 01:15 Order name: Basic Metabolic Panel EDMS 08/06 01:15 Order name: CBC with Automated Diff EDMS 08/06 01:15 Order name: CBC with Automated Diff EDMS 08/06 01:15 Order name: NT PRO-BNP EDMS 08/06 01:15 Order name: NT PRO-BNP [facility] [place] 08/05 22:15 Order name: XRAY Chest (1 view) [facility] 08/05 22:15 Order name: EKG; Complete Time: 22:17 [facility] 08/05 22:15 Order name: Cardiac monitoring; Complete Time: 22:15 [facility] 08/05 22:15 Order name: EKG - Nurse/Tech; Complete Time: 22:15 [facility] 08/05 22:15 Order name: IV Saline Lock; Complete Time: 22:47 [facility] 08/05 22:15 Order name: Labs collected and sent; Complete Time: 22:47 [facility] 08/05 22:15 Order name: O2 Per Protocol; Complete Time: 22:15 [facility] 08/05 22:15 Order name: O2 Sat Monitoring; Complete Time: 22:15 [facility] 08/06 01:15 Order name: Troponin I [facility] 08/06 01:15 Order name: Troponin I [facility] 08/06 01:15 Order name: Troponin I [facility] Administered Medications: 00:45 Drug: Bumex 1 mg Route: IVP; Site: left antecubital; [facility] 01:45 Follow up: Response: No adverse reaction j Disposition: 08/06/18 01:08 Hospitalization ordered by Duglas Mascorro for Inpatient Admission. Preliminary diagnosis are Acute respiratory failure with hypoxia, Acute CHF exacerbation. - Bed requested for Telemetry/MedSurg (Inpatient). - Status is Inpatient Admission. jd3 - Condition is Stable. - Problem is an acute exacerbation. - Symptoms have worsened. UTI on Admission? No Signatures: Dispatcher [employer] [facility] Renay Bedolla RN RN Nelson Vazquez RN RN jLeo Mendoza MD MD ps1 Corrections: (The following items were deleted from the chart) 01:48 01:08 Hospitalization Ordered by Duglas Mascorro MD for Inpatient Admission. Preliminary cg diagnosis is Acute respiratory failure with hypoxia; Acute CHF exacerbation. Bed requested for Telemetry/MedSurg (Inpatient). Status is Inpatient Admission. Condition is Stable. Problem is an acute exacerbation. Symptoms have worsened. UTI on Admission? No. ps1 02:25 01:48 08/06/2018 01:08 Hospitalization Ordered by Duglas Mascorro MD for Inpatient jd3 Admission. Preliminary diagnosis is Acute respiratory failure with hypoxia; Acute CHF exacerbation. Bed requested for Telemetry/MedSurg (Inpatient). Status is Inpatient Admission. Condition is Stable. Problem is an acute exacerbation. Symptoms have worsened. UTI on Admission? No. cg
[2018-08-06 05:48] VITALS: BMI 38.0
[2018-08-06] MEDS ORDERED: D50W 25 GM/50 ML SYRINGE IV PRN ×2 (06:55→07:11)
[2018-08-06] MEDS ORDERED: GLUCAGON 1 MG/VIAL IM PRN ×2 (06:55→07:11)
[2018-08-06] MEDS: INSULIN -REGULAR HUMAN 50 UNIT/0.5 ML ML SQ SCH ×4 (07:30→21:00)
[2018-08-06] MEDS ORDERED: INSULIN -REGULAR HUMAN 50 UNIT/0.5 ML ML SQ SCH (07:30)
[2018-08-06] MEDS: LEVOTHYROXINE SOD 0.112 MG TAB PO SCH (08:27)
[2018-08-06] MEDS: LEVOTHYROXINE SOD 0.025 MG TAB PO SCH (08:27)
--- NOTE | 2018-08-06 08:33 | EKG ---
Test Date: 2018-08-05 Test Time: 22:17:02 Scientist Immunology: LOUIE MEASUREMENT RESULTS: Intervals: Rate: 75 ND: 188 QRSD: 162 QT: 458 QTc: 511 [place]: P: 39 ND: 188 QRS: -8 T: 97 INTERPRETIVE STATEMENTS: Normal sinus rhythm Left bundle branch block Abnormal ECG Compared to ECG 05/31/2018 16:56:55 Sinus bradycardia no longer present Right-axis deviation no longer present Electronically Signed On 08-06-18 08:32:30 CDT by Edenilson Cruz
[2018-08-06] MEDS ORDERED: AMLODIPINE 5 MG TAB PO SCH (09:00)
[2018-08-06] MEDS ORDERED: FUROSEMIDE 20 MG/ 2ML VIAL IV SCH (09:00)
[2018-08-06] MEDS: ATORVASTATIN 20 MG TAB PO SCH (09:28)
[2018-08-06] MEDS: GABAPENTIN 300 MG CAP PO SCH ×2 (09:28→21:06)
--- NOTE | 2018-08-06 10:18 | CON ---
History Of Present Illness: Ms. Amaro is 73. She came to the hospital with dyspnea. She was foun d to have interstitial pulmonary edema and a hemoglobin of 7.8. Ms. Amaro has a terrible problem w ith blood loss, chronic anemia. She has had numerous blood transfusions. Her admission hemoglobin w as 7.8, and she has had a 7.3 last December, a 7.5 in March, but it rarely gets up to 10 except righ t after a transfusion. Number of transfusions she has had is quite extensive. I do not think she mai s had one since she has been here, but they go back to 2017. She needs transfusions every few months . She has had a complete GI workup and there is no source known. She has normal ejection fraction, left bundle-branch block, and diastolic dysfunction. She has underlying hypertension, diabetes, dysl ipidemia, hypothyroidism, and dementia. Outpatient Medications: Aricept, atorvastatin, Januvia, hydralazine, gabapentin, vitamin D3, levothy roxine, furosemide, amlodipine, and 2 different types of insulin. She is allergic to x-ray contrast material. Social History: She uses no tobacco, alcohol, or illegal drugs. Physical Examination: Vital Signs: 4 feet 9 inches, 176 pounds. General: Pale, alert, oriented, not in distress. Lungs: The lungs do reveal basilar crackles, fine Velcro type rale crackles. Heart: Within normal limits. Abdomen: Soft. Extremities: Mild edema. Impression: My impression is the patient has pulmonary edema, needs diuresis. Her hemoglobin is 7.8 . She will need a blood transfusion. This would be probably her tenth or more unit of blood transfu rodrigo that she has had. Thank you very much for your kind referral of Mrs. Amaro. I will follow her with you. QUETA/MARTY Voice ID: [id number] Report ID: [id number]
--- NOTE | 2018-08-06 11:22 | RAD REPORT ---
EXAM DESCRIPTION: RAD - Chest Single View - 08/05/2018 10:47 pm CLINICAL HISTORY: CHEST PAIN Chest pain. COMPARISON: Chest Single View dated 05/31/2018; Chest Single View dated 12/15/2017; Chest Pa And Lat (2 Views) dated 08/19/2017; Chest Pa And Lat (2 Views) dated 12/15/2016 FINDINGS: Portable technique limits examination quality. Mild to moderate pulmonary edema is seen. Moderate cardiomegaly. No displaced fractures.Hardware is p resent right humerus. IMPRESSION: Mild to moderate CHF.
[2018-08-06] MEDS: TRAMADOL HCL 50 MG TAB PO PRN (11:47)
[2018-08-06 12:59] LABS: CKMB Creatine Kinase MB < 1.0 ng/mL (0.3-3.6); Uric Acid 11.8 mg/dL (2.6-6.0)
[2018-08-06] MEDS ORDERED: NA CHLORIDE 0.9% 250 ML ONE (13:00)
[2018-08-06] MEDS ORDERED: FUROSEMIDE 40 MG/4 ML VIAL IV SCH (15:00)
--- NOTE | 2018-08-06 15:54 | CON ---
Date of Consultation: 08/06/2018 Additional Consulting Physician: Duglas Mascorro M.D. Reason For Consultation: Elevated BUN and creatinine. History Of Present Illness: This is a pleasant 73-year-old female, well known to me from the office with significant past medical history of chronic kidney disease stage 3/4, baseline creatinine 2, GFR of 27, secondary to diabetes nephropathy; renal vascular disease; status post acute kidney injury re quired dialysis, weaned off, diabetes complicated with neuropathy, nephropathy, and retinopathy; hype rlipidemia; hypertension; anemia with recurrent requirement for transfusion. The patient came to the hospital complaining of shortness of breath that started all of a sudden, for that reason came to e hospital. The patient also was complaining of chest pain and chest tightness. Upon presentation t o the hospital was found to have anemia. Her hemoglobin dropped to 7.8 and also found to have elevat ion of BUN and creatinine. Creatinine was 2.7 with GFR of 17. For that reason, we have been consult ed. The patient was last seen back in May. At that time, her creatinine was 2.8, GFR of 16. The patient denied any nausea, any vomiting. Over the night, the patient was started on transfusion, sta rted on diuresis, and we have been consulted. The patient denied change in her medication. Denied a ny change in her diet. Past Medical History: Include; 1.Hypertension. 2.Diabetes complicated with neuropathy and nephropathy. 3.Chronic kidney disease stage 3B/4 secondary to diabetes nephropathy. 4.Hypertension. 5.Nephrosclerosis. 6.Renal vascular disease, baseline creatinine 2, GFR 27. Latest creatinine back in May of 2.8, GF R of 17. Patient at that time was refusing any dialysis or any preparation for dialysis. Past Surgical History: Include; PermCath placement and removal. Allergies: TO IODINE CONTRAST. Review of Systems: Head and Neck: No red eye. No ear pain. GI: No nausea, no vomiting. : No polyuria, no dysuria, no hematuria. Pharmacy Tech Customer Service: No vaginal discharge. Respiratory: Has shortness of breath. Cardiovascular: Has orthopnea. Has chest tightness. Endocrine: No polydipsia. Skin: No rash. Neuro: Has neuropathy. Musculoskeletal: Low back pain. Home Medications: Include Januvia, levothyroxine, insulin, gabapentin, hydralazine, donepezil, Lasix 60, atorvastatin, and Norvasc. Current medications in the hospital include breathing treatment, Norvasc 5 mg, Lasix, gabapentin, lev othyroxine, and tramadol. Physical Examination: Vital Signs: When I saw the patient, the patient was receiving transfusion. Blood pressure of 156/6 9, pulse of 65. Chest: Crackles bilateral. Heart: S1, S2. Regular. Systolic murmur. Abdomen: Soft, nontender. Extremities: Plus edema. Laboratory Data: Sodium 136, potassium 4.6, bicarb 25, BUN 68, creatinine 2.7, calcium 8.2, phosphor us 3.3, albumin 3.3. BNP 5600. WBC 11.4, H and H 7.8/24.1, platelets 330. Assessment And Plan: 1.Acute kidney injury on chronic kidney disease secondary to cardiorenal, superimposed with anemia. I agree with diuresis. I increased the Lasix to twice a day. We will give extra dose today after t ransfusion and we will monitor. 2.Hypertension. We will utilize blood pressure for more diuresis. I am going to go ahead and incre ase her Lasix to b.i.d. We will start the patient on nitro patch. 3.Giving the CHF exacerbation, I am going to go ahead and discontinue the calcium channel libby fo r the time being. 4.Anemia secondary to chronic kidney disease. I agree with transfusion. I am going to send for ane dana workup. The patient may need to be started on the FRANSICO. 5.Congestive heart failure exacerbation. We will follow up with Cardiology and Primary. As I menti nathalied, we will try to establish better volume control for the patient with diuresis. Thank you Dr. Mascorro for allowing us to participate in the care of your patient. JANI/MARTY Voice ID: [id number] Report ID: [id number]
--- NOTE | 2018-08-06 18:40 | RAD REPORT ---
EXAM DESCRIPTION: US - Renal Ultrasound-Complete - 08/06/2018 6:34 pm CLINICAL HISTORY: anemia, elevated cr COMPARISON: Renal Ultrasound-Complete dated 12/15/2017 FINDINGS: Both kidneys are normal in size, shape and echotexture. The right kidney measures 10.3 x 5.3 x 4.0 cm. No hydronephrosis, focal mass or perinephric fluid. The left kidney measures 10.8 x 4.6 x 4.2 cm. No hydronephrosis, focal mass or perinephric fluid. The urinary bladder is incompletely distended without gross abnormality seen. IMPRESSION: Unremarkable renal sonogram.
[2018-08-06 20:13] LABS: Urine Protein/Creatinine Ratio 0.48 ratio (<0.15)
[2018-08-06] MEDS: DONEPEZIL HCL 5 MG TAB PO SCH (21:06)
[2018-08-06] MEDS: FUROSEMIDE 40 MG/4 ML VIAL IV SCH (21:07)
[2018-08-06] MEDS: IPRATROPIUM BROM 0.5MG/2.5ML NEB PRN (21:25)
[2018-08-06] MEDS: ALBUTEROL 2.5 MG/3 ML NEB SOL NEB PRN (21:25)
[2018-08-06 21:39] LABS: Absolute Lymphocytes (CBC) 0.7 K/uL (0.7-4.9); Absolute Monocytes 0.6 K/uL (0.1-1.3); Basophils % 0.4 % (0-1.3); Eosinophils % 2.7 % (0-4.4); Hematocrit 25.6 % (36.0-45.0); Lymphocytes % 6.8 % (15.3-44.8); MPV 7.9 fL (7.6-11.3); Monocytes % 5.9 % (3.3-12.3); RBC Red Blood Cell Count 2.78 M/uL (3.86-4.86)
--- NOTE | 2018-08-07 04:55 | HP ---
Date of Admission: 08/06/2018 Chief Complaint: Dyspnea. History Of Present Illness: A 73-year-old female, who is known to have heart failure, was brought to the emergency room because of increasing dyspnea. The patient had evidence of pulmonary edema. The patient is admitted. There is no history of chest pain, fever, chills, rigors. The patient has mul tiple medical problems, which will be listed below. Past Medical History: 1.Type 2 diabetes, requiring insulin. 2.Chronic renal failure. 3.History of dementia. 4.Hypertension. 5.Diabetic neuropathy. 6.Hyperlipidemia. 7.Hypothyroidism. Past Surgical History: Positive for shoulder and wrist surgery. Allergies: IV CONTRAST. Review of Systems: No fever, chills, or rigors. Physical Examination: General: Revealed a 73-year-old female, alert for her age. HEENT: Negative. Neck: Supple. JVD negative. Chest: Bibasilar crackles. Heart: Irregularity noted. Abdomen: Pendulous. Nontender. Extremities: Mild pedal edema. Laboratory Data: Hemoglobin at admission was 7.8, white count 11.4, platelet count normal. Chem pro file; BUN elevated to 68, creatinine 2.79, BNP 5638, troponin normal. Chest x-ray, pulmonary congestion. Assessment: 1.Exacerbation of diastolic heart failure. 2.Type 2 diabetes. 3.Avwdp-dx-qyoukng renal failure. 4.Hypertension. 5.Hypothyroidism. 6.Dementia. 7.Hyperlipidemia. Plan: The patient is receiving IV Lasix. Nephrology and Cardiac consults have been done. The patie nt will have repeat hemoglobin and hematocrit after the transfusion of 1 packed RBC unit. SANDRO/MARTY Voice ID: [id number]
[2018-08-07] MEDS: LEVOTHYROXINE SOD 0.025 MG TAB PO SCH (05:16)
[2018-08-07] MEDS: LEVOTHYROXINE SOD 0.112 MG TAB PO SCH (05:16)
[2018-08-07 06:02] LABS: RBC Red Blood Cell Count 2.82 M/uL (3.86-4.86)
[2018-08-07 06:10] LABS: Absolute Lymphocytes (CBC) 0.7 K/uL (0.7-4.9); Absolute Monocytes 0.5 K/uL (0.1-1.3); Absolute Neutrophil 8.7 K/uL (1.8-8.0); Basophils % 0.5 % (0-1.3); Eosinophils % 2.7 % (0-4.4); Hematocrit 26.1 % (36.0-45.0); Lymphocytes % 6.8 % (15.3-44.8); MPV 7.9 fL (7.6-11.3); RBC Red Blood Cell Count 2.85 M/uL (3.86-4.86)
[2018-08-07 06:47] LABS: Albumin 3.3 g/dL (3.4-5.0); BUN Blood Urea Nitrogen 70 mg/dL (7-18); Bicarbonate 28 mmol/L (21-32); Ferritin 76.7 ng/mL (8-388); Folic Acid, (Folate) > 20.0 ng/mL (3.1-17.5); Glucose Level 151 mg/dL (74-106); Potassium 4.1 mmol/L (3.5-5.1); Sodium Level 136 mmol/L (136-145)
[2018-08-07] MEDS: INSULIN -REGULAR HUMAN 50 UNIT/0.5 ML ML SQ SCH ×4 (07:30→22:02)
[2018-08-07] MEDS: FUROSEMIDE 40 MG/4 ML VIAL IV SCH ×2 (08:17→17:11)
[2018-08-07] MEDS: ATORVASTATIN 20 MG TAB PO SCH ×2 (08:17→22:02)
[2018-08-07] MEDS: GABAPENTIN 300 MG CAP PO SCH ×2 (08:17→22:01)
[2018-08-07] MEDS ORDERED: NITROGLYCERIN 0.2 MG/HR (5 MG) PATCH TD SCH (09:00)
[2018-08-07] MEDS: ALBUTEROL 2.5 MG/3 ML NEB SOL NEB PRN (10:45)
[2018-08-07] MEDS: IPRATROPIUM BROM 0.5MG/2.5ML NEB PRN (10:45)
--- NOTE | 2018-08-07 16:14 | PN ---
Mrs. Marie had received 1 unit of packed red blood cells. Her hemoglobin is 8.3. She still has pul monary crackles. We will continue with her intravenous Lasix diuresis. It will be Dr. Romano's decisi on as to whether to give more blood or not, but she needs more diuresis to feel her best. QUETA/MARTY Voice ID: [id number] Report ID: [id number]
--- NOTE | 2018-08-07 18:23 | PN ---
Date of Progress Note: 08/07/2018 Subjective: The patient was admitted with severe anemia, congestive heart failure. Physical Examination: Vital Signs: Blood pressure 164/67, pulse of 68. The patient had good urine output of 1800. Chest: Crackles bilateral. Heart: S1, S2. Systolic murmur. Abdomen: Soft, nontender. Extremities: Plus edema. Laboratory Data: H and H 8.6/26.1. Sodium 136, potassium 4, bicarb 28, BUN 70, creatinine 2.5, GFR of 18, calcium 8.1, phosphorus 4.5. PTH 210. Current Medications: Include Tylenol, gabapentin, nitroglycerin patch, breathing treatment, Lasix 40 b.i.d. Levothyroxine. Tramadol. Assessment And Plan: 1.Acute kidney injury secondary to cardiorenal, still over volume. I am going to go ahead and incre ase Lasix to 80 mg. 2.Hypertension, controlled, optimal. Continue to utilize blood pressure for more diuresis. The pat ient could not tolerate nitroglycerin. 3.Congestive heart failure as above. 4.Anemia of chronic kidney disease. We will continue the patient on diuresis status post transfusio n. JANI/MARTY Voice ID: [id number] Report ID: [id number]
[2018-08-07] MEDS: DONEPEZIL HCL 5 MG TAB PO SCH (22:01)
[2018-08-07] MEDS: JUVEN PACKET PO SCH (22:10)
--- NOTE | 2018-08-08 03:15 | PN ---
The patient is doing better. She still has mild wheezing at rest and shortness of breath. The patie nt is afebrile. The patient will be continued on the same management. EULALIA Voice ID: [id number] Report ID: [id number]
[2018-08-08] MEDS: LEVOTHYROXINE SOD 0.025 MG TAB PO SCH (05:37)
[2018-08-08] MEDS: LEVOTHYROXINE SOD 0.112 MG TAB PO SCH (05:37)
[2018-08-08 06:11] LABS: Albumin 2.9 g/dL (3.4-5.0); Phosphorus 5.6 mg/dL (2.5-4.9); Potassium 4.1 mmol/L (3.5-5.1)
[2018-08-08] MEDS: INSULIN -REGULAR HUMAN 50 UNIT/0.5 ML ML SQ SCH ×4 (07:30→21:00)
[2018-08-08] MEDS: JUVEN PACKET PO SCH ×2 (09:00→21:00)
--- NOTE | 2018-08-08 09:16 | RAD REPORT ---
EXAM DESCRIPTION: RAD - Chest Pa And Lat (2 Views) - 08/08/2018 9:08 am CLINICAL HISTORY: chf Chest pain. COMPARISON: Chest Single View dated 08/05/2018; Chest Single View dated 05/31/2018; Chest Single View dated 12/15/2017; Chest Pa And Lat (2 Views) dated 08/19/2017 FINDINGS: Moderate bilateral pulmonary opacities are present compatible with pulmonary edema. Small bilateral pleural effusions. The heart is moderately enlarged in size. No displaced fractures. IMPRESSION: Moderate CHF versus volume overload.
[2018-08-08] MEDS: GABAPENTIN 300 MG CAP PO SCH ×2 (10:08→22:26)
[2018-08-08] MEDS: FUROSEMIDE 40 MG/4 ML VIAL IV SCH ×2 (10:09→16:56)
--- NOTE | 2018-08-08 11:27 | ECHO ---
HEIGHT: 4 ft 9 in WEIGHT: 176 lb 0 oz DATE OF STUDY: 08/08/[address]: Edenilson Cruz MD 2-DIMENSIONAL: YES M.MODE: YES DOPPLER: YES COLOR FLOW: YES TDS: NO PORTABLE: NO DEFINITY: NO BUBBLE STUDY: NO DIAGNOSIS: CONGESTIVE HEART FAILURE CARDIAC HISTORY: CATHERIZATION: YES SURGERY: NO PROSTHETIC VALVE: NO PACEMAKER: NO MEASUREMENTS (cm) DIASTOLIC (NORMALS) SYSTOLIC (NORMALS) IVSd 1.2 (0.6-1.2) LA Diam 4.3 (1.9-4.0) LVEF 69% LVIDd 4.8 (3.5-5.7) LVIDs 3.0 (2.0-3.5) %FS 39% LVPWd 1.2 (0.6-1.2) Ao Diam 2.3 (2.0-3.7) 2 DIMENSIONAL ASSESSMENT: RIGHT ATRIUM: NORMAL LEFT ATRIUM: DILATED RIGHT VENTRICLE: NORMAL LEFT VENTRICLE: NORMAL TRICUSPID VALVE: NORMAL MITRAL VALVE: MITRAL ANNULAR CALCIFICATION PULMONIC VALVE: NORMAL AORTIC VALVE: NORMAL PERICARDIAL EFFUSION: NONE AORTIC ROOT: NORMAL LEFT VENTRICULAR WALL MOTION: NORMAL DOPPLER/COLOR FLOW: MILD MITRAL, TRICUSPID AND AORTIC REGURGITATION. ESTIMATED RIGHT VENTRICULAR SYSTOLIC PRESSURE 45 mmHg. MILD PULMONARY HYPERTENSION. COMMENTS: NORMAL LEFT VENTRICULAR EJECTION FRACTION. DILATED LEFT ATRIUM. MITRAL ANNULAR CALCIFICATION. MILD MITRAL, TRICUSPID AND AORTIC REGURGITATION. MILD PULMONARY HYPERTENSION. TECHNOLOGIST: Cash TIDWELL
--- NOTE | 2018-08-08 11:45 | PN ---
The patient had a dramatic diuresis. Her hemoglobin is 8.6 today. It would be a good idea for us to do a chest x-ray on her as well as an echocardiogram, so we can get a better ideal way to prevent pu lmonary edema in the future. DONALD Voice ID: [id number] Report ID: [id number]
[2018-08-08] MEDS: DONEPEZIL HCL 5 MG TAB PO SCH (22:27)
--- NOTE | 2018-08-09 02:40 | PN ---
The patient still has dyspnea, mild, at rest. She has scattered wheezes bilaterally. The patient is not moving out of the bed. I encouraged her to ambulate. However, she feels that she is not ready for that yet. I spoke to the family regarding ambulation. Pulmonary consultation is obtained as she has been seeing Dr. Milligan in the office and she is due to be seen tomorrow to see if any symptoms could be related to her pulmonary condition. SANDRO/MARTY Voice ID: [id number] Report ID: [id number]
--- NOTE | 2018-08-09 03:40 | PN ---
Date of Progress Note: 08/08/2018 Chief Complaint: Acute kidney injury. History Of Present Illness: Acute kidney injury, nonoliguric, associated with cardiorenal syndrome. The patient remains fluid overloaded. She is treated with diuretics. She is on Lasix. Lasix dose was adjusted for optimal control of congestive heart failure to obtain diuresis. Review of Systems: The patient denies new complaints. Denies PND or orthopnea. Physical Examination: Lungs: Crackles bilaterally present. Heart: S1, S2. Abdomen: Soft, benign. Extremities: Edema present in the both legs. Blood Work: Phosphorus 4.5. Intact PTH 210. Sodium 136, potassium 4, bicarbonate 28, BUN 70, creat inine 2.5, calcium 8.1. Impression And Plan: 1.Acute kidney injury secondary to cardiorenal syndrome. Renal function is stabilizing. Monitor el ectrolytes. Check magnesium. Dose of Lasix was increased for adequate control of fluid overload. T he patient has anasarca. Continue p.o. fluid restriction and low-sodium diet. Diuretic dose was adj usted. Check electrolytes including magnesium level in the morning. 2.Congestive heart failure, decompensated with fluid overload and shortness of breath. Continue diu retic and monitor blood pressure. Adjust blood pressure medication. 3.Anemia of chronic kidney disease. The patient received transfusion. Monitor hemoglobin level. JOAQUINA/MARTY Voice ID: [id number] Report ID: [id number]
[2018-08-09 05:30] LABS: Albumin 2.8 g/dL (3.4-5.0); Phosphorus 4.6 mg/dL (2.5-4.9)
[2018-08-09] MEDS: LEVOTHYROXINE SOD 0.025 MG TAB PO SCH (06:05)
[2018-08-09] MEDS: LEVOTHYROXINE SOD 0.112 MG TAB PO SCH (06:05)
[2018-08-09] MEDS: INSULIN -REGULAR HUMAN 50 UNIT/0.5 ML ML SQ SCH ×4 (07:30→21:35)
--- NOTE | 2018-08-09 08:21 | P.CNS ---
Date of Consult: 08/09/18 Chief Complaint: Shortness of breath History of Present Illness: Patient is 73 years of age admitted with acute shortness of breath she has had chronic shortness of breath for quite some time seen by Cardiology nephrology also complains of some lower extremity edema denies any fever chills chest pain no prior history of coronary artery disease as diabetes chronic renal failure patient has chronic anemia of the chronic renal failure vital signs satisfactory patient has never smoked Allergies Iodinated Contrast- Oral and IV Dye [Iodinated Contrast Media - IV Dye] Adverse Reaction (Verified 05/06/18 12:59) Hives Home Medications: Amlodipine Besylate 5 mg PO DAILY 08/06/18 Atorvastatin Calcium 20 mg PO DAILY 08/06/18 Cholecalciferol (Vitamin D3) [Vitamin D3] 1,000 units PO DAILY 08/06/18 Donepezil [Aricept*] 10 mg PO BEDTIME 08/06/18 Furosemide 60 mg PO DAILY 08/06/18 Gabapentin 300 mg PO BID 08/06/18 Hydralazine [Apresoline*] 50 mg PO BID 08/06/18 Insulin Degludec [Tresiba] 16 units SQ SEECOM 08/06/18 Insulin Lispro [Humalog*] 8 units SQ DAILY AT SUPPER PRN 08/06/18 Levothyroxine [Synthroid*] 0.137 mg PO DAILY 08/06/18 Sitagliptin Phosphate [Januvia*] 25 mg PO DAILY 08/06/18 - Past Medical/Surgical History Diabetic: Yes -: Diabetes mellitus type 2 -: HTN -: Hypothyroidism -: Dementia -: Diabetic neuropathy -: Hyperlipidemia -: R wrist crushed x2 w/ sx -: Ball replacement on Rt shoulder -: I&D of under L breast Psychosocial/ Personal History: The patient is . - Family History Father Medical History: Cancer Sister Medical History: Cancer - Social History Smoking Status: Current every day smoker Alcohol use: No CD- Drugs: No Caffeine use: Yes Place of Residence: Home Review of Systems 10-point ROS is otherwise unremarkable General: Weakness Respiratory: Cough, Shortness of Breath Physical Examination Temp Pulse Resp BP Pulse Ox 97.5 F 59 18 152/62 H 97 08/09/18 04:00 08/09/18 04:00 08/09/18 04:00 08/09/18 04:00 08/09/18 04:00 General: Alert, In no apparent distress, Oriented x3 HEENT: Normocephalic Respiratory: Clear to auscultation bilaterally Cardiovascular: No edema, Normal pulses, Normal S1 S2 Gastrointestinal: Normal bowel sounds, Soft and benign Musculoskeletal: No clubbing, No swelling Integumentary: No rashes, No breakdown - Problems (1) Shortness of breath Current Visit: Yes Status: Acute Plan: Patient is 73 years of age admitted with acute on chronic shortness of breath or BNP is elevated she has chronic renal failure chest x-ray volume overload agree with the high doses of IV Lasix echocardiogram shows normal left ventricular function moderate pulmonary hypertension most likely she is underlying diastolic dysfunction patient is in negative fluid balance oxygen a riley satisfactory
[2018-08-09] MEDS: GABAPENTIN 300 MG CAP PO SCH ×2 (08:47→20:56)
[2018-08-09] MEDS: ATORVASTATIN 20 MG TAB PO SCH (08:47)
[2018-08-09] MEDS: FUROSEMIDE 40 MG/4 ML VIAL IV SCH ×2 (08:47→17:29)
[2018-08-09] MEDS: JUVEN PACKET PO SCH ×2 (08:57→20:56)
[2018-08-09] MEDS: DONEPEZIL HCL 5 MG TAB PO SCH (20:56)
--- NOTE | 2018-08-10 03:07 | PN ---
Date of Progress Note: 08/09/2018 Chief Complaint: Acute kidney injury, nonoliguric, associated with cardiorenal syndrome. History Of Present Illness: The patient remains fluid overloaded. She is treated with diuretic and diuresis was adequately obtained with Lasix. Review of Systems: Denies fever or chills. Physical Examination: Lungs: Few crackles at bases. Heart: S1, S2. Abdomen: Soft, benign. Extremities: Slight edema. Laboratory Data: Intact PTH 210. Sodium 136, potassium 4.4, phosphorus is 4.5, calcium 8.9, creatin ine 2.5, BUN 30. Lab work today showed sodium 140, potassium 4.0, chloride 102, CO2 31, BUN 69, crea tinine is 2.028, calcium 7.9. Impression And Plan: 1.Acute on chronic kidney injury. Avoid nonsteroidal anti-inflammatory medication. Continue adequa te hydration. Renal function is improving. Monitor magnesium level. Dose of Lasix was increased fo r adequate control of fluid overload. Monitor phosphorus and magnesium level daily. Renal _ will be obtained to check renal function. 2.Congestive heart failure, decompensated, with fluid overload and shortness of breath. Continue di uretics, low-sodium diet, and monitor fluid balance. 3.Anemia of chronic kidney disease. The patient received transfusion. Monitor hemoglobin level. JOAQUINA/MARTY Voice ID: [id number] Report ID: [id number]
[2018-08-10] MEDS: LEVOTHYROXINE SOD 0.112 MG TAB PO SCH (05:27)
[2018-08-10] MEDS: LEVOTHYROXINE SOD 0.025 MG TAB PO SCH (05:28)
[2018-08-10 06:17] LABS: Absolute Lymphocytes (CBC) 0.9 K/uL (0.7-4.9); Absolute Monocytes 0.6 K/uL (0.1-1.3); Absolute Neutrophil 6.8 K/uL (1.8-8.0); Basophils % 0.8 % (0-1.3); Eosinophils % 3.5 % (0-4.4); Hematocrit 26.9 % (36.0-45.0); Lymphocytes % 10.5 % (15.3-44.8); MPV 7.3 fL (7.6-11.3); Monocytes % 6.9 % (3.3-12.3); RBC Red Blood Cell Count 2.97 M/uL (3.86-4.86)
[2018-08-10 06:26] LABS: Albumin 2.9 g/dL (3.4-5.0); Magnesium 2.9 mg/dL (1.8-2.4); Phosphorus 3.7 mg/dL (2.5-4.9); Potassium 3.9 mmol/L (3.5-5.1)
[2018-08-10] MEDS: INSULIN -REGULAR HUMAN 50 UNIT/0.5 ML ML SQ SCH ×4 (07:30→21:03)
[2018-08-10] MEDS: ATORVASTATIN 20 MG TAB PO SCH (08:09)
[2018-08-10] MEDS: FUROSEMIDE 40 MG/4 ML VIAL IV SCH (08:09)
[2018-08-10] MEDS: GABAPENTIN 300 MG CAP PO SCH ×2 (08:09→21:02)
[2018-08-10] MEDS: JUVEN PACKET PO SCH ×2 (08:10→21:00)
--- NOTE | 2018-08-10 11:50 | PN ---
Date of Progress Note: 08/09/2018 Subjective: Ms. Amaro is 73, was admitted by Dr. Mascorro for congestive heart failure and acute kidn ey injury. She is diuresing well. Her last hemoglobin is 8.6. She had received 1 blood transfusion . Chest x-ray does shows congestive heart failure. Her echocardiogram shows a normal ejection fract ion with some diastolic dysfunction. Creatinine is 2.28. She continues to diurese. We will continu e to follow her. I agree with the plan by Dr. Mascorro and Nephrology. NB/MODL Voice ID: [id number] Report ID: [id number]
--- NOTE | 2018-08-10 16:14 | PN ---
Date of Progress Note: 08/10/2018 Subjective: The patient was admitted with acute kidney injury, cardiorenal, diuresed very well. Kid mackenzie function started trending down to her baseline. Physical Examination: Vital Signs: Blood pressure 146/67, pulse of 61. The patient had good urine output of 3 L. Weight stuart, the patient lost 10 pounds from admission. Chest: Crackles bilateral. Heart: S1 and S2, regular. Systolic murmur. Abdomen: Soft and nontender. Extremities: Trace edema. Current Medications: Include: 1.Donepezil. 2.Atorvastatin. 3.Tylenol. 4.Gabapentin 300 b.i.d. 5.Lasix 80 b.i.d. 6.Tramadol. 7.Levothyroxine. Assessment And Plan: 1.Acute kidney injury secondary to cardiorenal. We will continue the patient on current diuresis as patient still over volume. I am going to increase the Lasix to 100 b.i.d. and we will follow up. 2.Hypertension, controlled, optimal. We utilize the blood pressure for more diuresis. 3.Congestive heart failure. We will try to establish better volume control with the diuresis. We w ill follow up. RUTH Voice ID: [id number] Report ID: [id number]
[2018-08-10] MEDS: FUROSEMIDE 100 MG/10 ML VIAL IV SCH (17:04)
[2018-08-10] MEDS: DONEPEZIL HCL 5 MG TAB PO SCH (21:02)
--- NOTE | 2018-08-11 03:55 | PN ---
The patient is doing better. She still has basal crackles. She is afebrile. She is able to do with out the Pedro catheter. I discussed her discharge plan. The patient wants to see whether she is a c andidate for home oxygen. Pulmonary consult has been done to check her O2 saturation for eligibility for home oxygen. SANDRO/MARTY Voice ID: [id number] Report ID: [id number]
[2018-08-11] MEDS: LEVOTHYROXINE SOD 0.025 MG TAB PO SCH (05:55)
[2018-08-11] MEDS: LEVOTHYROXINE SOD 0.112 MG TAB PO SCH (05:55)
[2018-08-11] MEDS: TRAMADOL HCL 50 MG TAB PO PRN (05:56)
[2018-08-11 06:39] LABS: Phosphorus 3.7 mg/dL (2.5-4.9); Potassium 3.9 mmol/L (3.5-5.1)
[2018-08-11] MEDS: INSULIN -REGULAR HUMAN 50 UNIT/0.5 ML ML SQ SCH ×4 (07:30→21:11)
[2018-08-11] MEDS: JUVEN PACKET PO SCH ×2 (09:00→20:57)
[2018-08-11] MEDS: FUROSEMIDE 100 MG/10 ML VIAL IV SCH ×2 (09:17→17:03)
[2018-08-11] MEDS: GABAPENTIN 300 MG CAP PO SCH ×2 (09:20→21:11)
[2018-08-11] MEDS: ATORVASTATIN 20 MG TAB PO SCH (09:20)
--- NOTE | 2018-08-11 12:32 | P.PN ---
Subjective Date of Service: 08/11/18 Chief Complaint: Shortness of breath Subjective: Improving Pt with LANDON and CHF exacerbation , Cr improved on IV lasix today No overnight events Stable VS still on Oxygen, Pulmonary evaluation to assess if need home oxygen Cr improved from 2.7 to 1.7 on lasix DIANNE : will start on IV iron Physical Examination - Vital Signs Temperature: 97.9 F Blood Pressure: 133/61 Pulse: 58 Respirations: 20 Pulse Ox (%): 95 - Physical Exam General: In no apparent distress, Oriented x3 HEENT: Atraumatic Neck: Supple, Without JVD or thyroid abnormality Respiratory: Normal air movement, Crackles/rales Cardiovascular: No edema, Normal S1 S2, No gallops, No rubs, No murmurs Gastrointestinal: Normal bowel sounds, Soft and benign Musculoskeletal: No swelling Integumentary: No rashes Assessment And Plan - Current Problems (Diagnosis) (1) Acute renal failure Onset Date: 11/03/16 Current Visit: No Status: Acute Qualifiers: Acute renal failure type: unspecified Qualified Code(s): N17.9 - Acute kidney failure, unspecified (2) Anemia Onset Date: 11/03/16 Current Visit: No Status: Chronic Qualifiers: Anemia type: unspecified type Qualified Code(s): D64.9 - Anemia, unspecified - Plan Assessment And Plan: Acute kidney injury Due to cardiorenal Syndrome US: no hydro, UPC 0.48 will cont lasix to be switched to 80mg po lasix bid on discharge , with Wt monitoring CHF cont lasix Anemia DIANNE will start IV iron hypothyrodism on Synthroid
[2018-08-11] MEDS: DONEPEZIL HCL 5 MG TAB PO SCH (21:12)
--- NOTE | 2018-08-12 02:01 | PN ---
The patient is doing better. She still has few basal crackles. Home oxygen recommendation and arran gement have been in progress. If it is all completed, the patient will be discharged tomorrow. SANDRO/MARTY Voice ID: [id number] Report ID: [id number]
[2018-08-12 04:51] VITALS: O2SAT 95
[2018-08-12] MEDS: LEVOTHYROXINE SOD 0.112 MG TAB PO SCH (06:32)
[2018-08-12] MEDS: LEVOTHYROXINE SOD 0.025 MG TAB PO SCH (06:32)
[2018-08-12] MEDS: INSULIN -REGULAR HUMAN 50 UNIT/0.5 ML ML SQ SCH ×2 (07:30→11:30)
[2018-08-12 08:33] VITALS: BP 130/62; TEMP 98
[2018-08-12] MEDS: JUVEN PACKET PO SCH (08:43)
[2018-08-12] MEDS: ATORVASTATIN 20 MG TAB PO SCH (08:43)
[2018-08-12] MEDS: FUROSEMIDE 100 MG/10 ML VIAL IV SCH (08:44)
[2018-08-12] MEDS: GABAPENTIN 300 MG CAP PO SCH (08:46)
[2018-08-12] MEDS ORDERED: SOD FERRIC GLUC COMPLX/SUCROSE 125 MG in NA CHLORIDE 0.9% 100 ML IV SCH (09:00)
--- NOTE | 2018-08-12 10:30 | P.PN ---
Subjective Date of Service: 08/12/18 Chief Complaint: Shortness of breath Subjective: Improving Pt with LANDON and CHF exacerbation , Cr improved on IV lasix today No overnight events Stable VS Chest mild basal rales cleared for discharge from nephrology point of view 325mg ferrous sulfate daily on discharge Physical Examination - Vital Signs Temperature: 98.0 F Blood Pressure: 130/62 Pulse: 59 Respirations: 18 Pulse Ox (%): 96 - Physical Exam General: Alert, In no apparent distress, Oriented x3, Obese HEENT: Atraumatic Neck: Supple, Without JVD or thyroid abnormality Respiratory: Normal air movement, Diminished Cardiovascular: No edema, Regular rate/rhythm, Normal S1 S2, No rubs, No murmurs Gastrointestinal: Normal bowel sounds, Soft and benign, Non-distended, No ascites Musculoskeletal: No erythema Integumentary: No rashes External genitalia: No edema Assessment And Plan - Current Problems (Diagnosis) (1) Acute renal failure Onset Date: 11/03/16 Current Visit: No Status: Acute Qualifiers: Acute renal failure type: unspecified Qualified Code(s): N17.9 - Acute kidney failure, unspecified (2) Anemia Onset Date: 11/03/16 Current Visit: No Status: Chronic Qualifiers: Anemia type: unspecified type Qualified Code(s): D64.9 - Anemia, unspecified - Plan Assessment And Plan: Acute kidney injury Due to cardiorenal Syndrome US: no hydro, UPC 0.48 will cont lasix to be switched to 80mg po lasix bid on discharge , with Wt monitoring CHF cont lasix Anemia DIANNE can switch to PO iron on discharge hypothyroidism on Synthroid
== END 2018-08-12 12:30 | disposition home or self-care (01) | DRG 291 ==
LOC: ER 21:39 → ERHOLD 08-06 01:51 → 2ND 08-06 02:12
PROVIDERS: ADMIT Internal Medicine; ATTEND Internal Medicine
PROC: 30233N1 Transfusion of Nonautologous Red Blood Cells into Peripheral Vein, Percutaneous Approach (ICD-10-PCS; principal; 2018-08-06)
DX: I13.0 Hypertensive heart and chronic kidney disease with heart failure and stage 1 through stage 4 chronic kidney disease, or unspecified chronic kidney disease (principal); I50.33 Acute on chronic diastolic (congestive) heart failure; N17.9 Acute kidney failure, unspecified; N18.3 Chronic kidney disease, stage 3 (moderate); E11.22 Type 2 diabetes mellitus with diabetic chronic kidney disease; D63.1 Anemia in chronic kidney disease; Z91.041 Radiographic dye allergy status; E11.40 Type 2 diabetes mellitus with diabetic neuropathy, unspecified; E11.21 Type 2 diabetes mellitus with diabetic nephropathy; E11.319 Type 2 diabetes mellitus with unspecified diabetic retinopathy without macular edema; E03.9 Hypothyroidism, unspecified
CPT/HCPCS: 36415; 36430; 71045; 71046; 76770; 80048; 80069; 80076; 82553; 82570; 82607; 82728; 82746; 82962; 83540; 83735; 83880; 83970; 84156; 84466; 84484; 84550; 85025; 85044; 85610; 86850; 86900; 86901; 88108; 93005; 93306; 96374; 99285; J1940; J2916; P9016

== ENCOUNTER 2018-09-29 07:37 | Day surgery (SDC) | payer OTHER ==
--- OUTSIDE RECORDS SUMMARY | 2018-09-29 07:40 | XMS REPORT | Clinical Summary ---
:[address] [facility] Address [address] [place] [address] Care Team Providers Name Role Phone Renato [...] current use of insulin (HCC) MD after 09/28/2017 Social History Tobacco Use Types Packs/Day Years [...] 584 ms QTC Calculation(Bazett) 511 ms P Kenneth 39 degrees R Kenneth 108 degrees T Kenneth 71 degrees Sinus bradycardia Non-specific intra-ventricular conduction block Possible Lateral infarct , age undetermined Abnormal ECG No previous ECGs available ECG 12-LEAD Routine 06/01/2018 1:51 AM CDT after 09/28/2017 Results RHYTHM STRIP - SCAN (06/13/2018 9:00 AM CDT)Only the most recent of2 resultswithin the time period is included. Narrative Performed At POC-Glucose meter (06/09/2018 11:39 AM CDT)Only the most recent of33 resultswithin the time period is included. POC-Glucose Meter 102Comment: TESTED AT 70 - 110 mg/dL [facility] [address] [facility] [id number] Specimen Blood Performing Organization Address [facility] Phone Number [address] [phone] CENTER Calcium, Ionized (06/09/2018 4:01 AM CDT)Only the most recent of5 resultswithin the time period is included. Calcium, Ion 0.83 (L) 1.12 - 1.27 mmol/L [facility] pH, Blood 7.39 [facility] Specimen Blood Performing Organization Address City/State/Zipcode Phone Number [facility] [address] [place] [address] CENTER CBC with platelet count + automated diff (06/09/2018 4:01 AM CDT)Only the most recent of9 resultswithin the time period is included. WBC 9.8 3.5 - 10.5 K/L [facility] RBC 2.72 (L) 3.93 - 5.22 M/L [facility] Hemoglobin 8.3 (L) 11.2 - 15.7 GM/DL [facility] Hematocrit 27.2 (L) 34.1 - 44.9 % [facility] MCV 100.0 (H) 79.4 - 94.8 fL [facility] MCH 30.5 25.6 - 32.2 pg [facility] MCHC 30.5 (L) 32.2 - 35.5 GM/DL [facility] RDW 16.3 (H) 11.7 - 14.4 % [facility] Platelets 286 150 - 450 K/CU MM [facility] MPV 10.7 9.4 - 12.3 fL [facility] nRBC 0 0 - 0 /100 WBC [facility] % Neutros 74 % [facility] % Lymphs 14 % [facility] % Monos 9 % [facility] % Eos 1 % [facility] % Baso 1 % [facility] # Neutros 7.20 (H) 1.56 - 6.13 K/L [facility] # Lymphs 1.36 1.18 - 3.74 K/L [facility] # Monos 0.83 (H) 0.24 - 0.36 K/L [facility] # Eos 0.14 0.04 - 0.36 K/L [facility] # Baso 0.07 0.01 - 0.08 K/L [facility] Immature 2 (H) 0 - 1 % [facility] Granulocytes-[facility] Specimen Blood Performing Organization Address City/[facility] Phone Number [address] [address] CENTER Phosphorus (06/09/2018 4:01 AM CDT)Only the most recent of3 resultswithin the time period is included. Phosphorus 4.6 2.3 - 4.7 mg/dL [facility] Specimen Blood Performing Organization Address City/[facility] Phone Number [address] [address] CENTER B-type Natriuretic Factor (BNP) (06/09/2018 4:01 AM CDT)Only the most recent of3 resultswithin the time period is included. BNP 163 (H) 0 - 100 pg/mL [facility] Specimen Blood Performing Organization Address City/[facility] Phone Number [address] [address] CENTER Magnesium (06/09/2018 4:01 AM CDT)Only the most recent of5 resultswithin the time period is included. Magnesium 2.5 1.6 - 2.6 mg/dL [facility] Specimen Blood Performing Organization Address City/[facility] Phone Number [address] [address] CENTER Basic Metabolic Panel (06/09/2018 4:01 AM CDT)Only the most recent of8 resultswithin the time period is included. Sodium 139 136 - 145 meq/L [facility] Potassium 4.5 3.5 - 5.1 meq/L [facility] Chloride 99 98 - 107 meq/L [facility] CO2 29 22 - 29 meq/L [facility] BUN 71 (H) 7 - 21 mg/dL [facility] Creatinine 2.27 (H) 0.57 - 1.25 mg/dL [facility] Glucose 106 (H) 70 - 105 mg/dL [facility] Calcium 9.6 8.4 - 10.2 mg/dL [facility] EGFR 21Comment: ESTIMATED GFR IS mL/min/1.73 sq m [facility] NOT ACCURATE CREATININE [facility] CENTER CLEARANCE IN PREDICTING GLOMERULAR FILTRATION RATE. ESTIMATED GFR IS NOT APPLICABLE FOR DIALYSIS PATIENTS. Specimen Blood Performing Organization Address City/[facility] Phone Number [address] [address] [place] Hepatic function panel (06/08/2018 12:52 PM CDT) Protein, Total 8.2 6.0 - 8.3 gm/dL [facility] Albumin 3.6 3.5 - 5.0 g/dL [facility] Total Bilirubin 0.3 0.2 - 1.2 mg/dL [facility] Bilirubin, Direct 0.2 0.1 - 0.5 mg/dL [facility] Alkaline Phosphatase 80 40 - 150 U/L [facility] AST 22 5 - 34 U/L [facility] ALT 15 6 - 55 U/L [facility] Specimen Blood Performing Organization Address City/[facility]/Zipcode Phone Number [address] [address] [phone] [place] [address] abdomen/pelvis without iv contrast (06/07/2018 2:31 [...] MD Report Verified Date/Time:06/07/2018 19:36:11 Reading Location: [facility] B1 C013Y CT Body Reading Room [...] Report Verified Date/Time: 06/07/2018 19:36:11 Reading Location: [facility] B1 C013Y CT Body Reading Room Performing Organization Address City/State/Zipcode Phone Number [facility] Urinalysis w/Microscopic + Reflex to Culture (06/05/2018 2:15 PM CDT)Only the most recent of2 resultswithin the time period is included. Color, UA Light Yellow [facility] Clarity, UA Hazy [facility] Specific [place], UA 1.008 1.001 - 1.035 [facility] pH, UA 5.0 5.0 - 8.0 [facility] Protein, UA 30 mg/dL (A) Negative [facility] Glucose, UA Negative Negative [facility] Ketones, UA Negative Negative [facility] Bilirubin, UA Negative Negative [facility] Blood, UA Negative Negative [facility] Nitrite, UA Positive (A) Negative [facility] Leukocytes, UA Large (A) Negative [facility] Urobilinogen, UA 0.2 0.2 - 1.0 mg/dL [facility] RBC, UA 1 /HPF [facility] WBC, UA 236 /HPF [facility] Bacteria, UA Few [facility] Mucus Rare [facility] Squam Epithel, UA <1 /HPF [facility] Specimen Source [facility] Specimen Urine Performing Organization Address City/State/Zipcode Phone Number [facility] [address] [place] [address] [phone] CENTER Urine culture (06/05/2018 2:15 PM CDT)Only the most recent of2 resultswithin the time period is included. Result >100,000 col/mL Same organism has been isolated from cultures(s) of the same body site within 3 days. Repeat identification and susceptibility testing performed only after consultation with the clinical microbiology laboratory. (A) [facility] Comment: MEDICAL CENTER Refer to previous culture of Escherichia coli Specimen Urine Performing Organization Address City/[facility] Phone Number [address] [address] [place] XR chest 1 view portable / bedside [...] MD Report Verified Date/Time:06/03/2018 09:25:59 Reading Location: [facility] Radiology Reading Room Procedure Note Interface, External [...] [facility] Reading Room Performing Organization Address City/[facility] Phone Number [facility] Comprehensive metabolic panel (06/03/2018 4:22 AM CDT) Protein, Total 7.4 6.0 - 8.3 gm/dL [facility] Albumin 3.3 (L) 3.5 - 5.0 g/dL [facility] Alkaline Phosphatase 87 40 - 150 U/L [facility] Total Bilirubin 0.4 0.2 - 1.2 mg/dL [facility] Sodium 141 136 - 145 meq/L [facility] Potassium 4.7 3.5 - 5.1 meq/L [facility] Chloride 112 (H) 98 - 107 meq/L [facility] CO2 19 (L) 22 - 29 meq/L [facility] BUN 64 (H) 7 - 21 mg/dL [facility] Creatinine 2.62 (H) 0.57 - 1.25 mg/dL [facility] Glucose 162 (H) 70 - 105 mg/dL [facility] Calcium 8.7 8.4 - 10.2 mg/dL [facility] AST 11 5 - 34 U/L [facility] ALT 11 6 - 55 U/L [facility] EGFR 18Comment: ESTIMATED GFR mL/min/1.73 sq m [facility] IS NOT ACCURATE [facility] CREATININE CLEARANCE IN PREDICTING GLOMERULAR FILTRATION RATE. ESTIMATED GFR IS NOT APPLICABLE FOR DIALYSIS PATIENTS. Specimen Blood Performing Organization Address City/[facility] Phone Number [facility] MEDICAL [address] [place] [address] CENTER US renal complete (06/02/2018 7:49 AM CDT) Specimen Narrative Performed At FINAL REPORT [facility] Renal ultrasound Clinical History:Acute renal injury Discussion: [...] MD Report Verified Date/Time:06/02/2018 10:53:55 Reading Location: [address] Ultrasound Reading Room Procedure Note Interface, [...] Report Verified Date/Time: 06/02/2018 10:53:55 Reading Location: [address] Ultrasound Reading Room Performing Organization Address City/State/Zipcode Phone Number [facility] ECHOCARDIOGRAM REPORT - SCAN (06/01/2018 9:12 PM CDT) Narrative Performed At Protein, random urine (06/01/2018 6:03 PM CDT) Protein, Urine 31 (H) 0 - 14 mg/dL [facility] Specimen Urine Performing Organization Address [facility]/Zipcode Phone Number [facility] [address] [place], [place] [phone] [place] Creatinine, random urine (06/01/2018 6:03 PM CDT) Creatinine, Ur 55.7 mg/dL [facility] Specimen Urine Narrative Performed At Reference Range: No Normals [facility] Performing Organization Address City/[facility] Phone Number [facility] [address] [place] [address] [place] 2D Echo W/Doppler(CW/PW/Color) (06/01/2018 11:22 AM CDT) Ejection Fraction [facility] [employer] [facility] Specimen Narrative Performed At Transthoracic Echocardiography Report (TTE) [facility] Demographics Patient Name NELIA SWEET Date of Study 06/01/2018 [place] [id number] GenderFemale Visit Number [id number] Unknown [id number] Room Number 1006 Number Date of Birth1945Referring Physician Anel Crespo Age72 year(s)Director Of Golf Dorothy Potts [facility] AnalystIzoDonavan Lopez MD Procedure Type of Study [...] Study 06/01/2018 M Gender Female Visit Number [id number] Race Unknown Room Number 1006 Number Date of 1945 Referring Physician Anel Crespo Age 72 year(s) Director Of Golf Dorothy Potts [employer] Donavan Funez MD Procedure Type of Study [...] TR Gradient: 38.66 mmHg Performing Organization Address City/[facility] Phone Number [facility] Urinalysis Microscopic Only (06/01/2018 9:02 AM CDT) RBC, UA <1 /HPF [facility] WBC, UA 13 /HPF [facility] Bacteria, UA Rare [facility] Squam Epithel, UA 1 /HPF [facility] Specimen Urine Performing Organization Address [facility] Phone Number [address] [address] [place] Urinalysis with Microscopic If Indicated (06/01/2018 9:02 AM CDT) Color, UA Light Yellow [facility] Clarity, UA Clear [facility] Specific [place], UA 1.008 1.001 - 1.035 [facility] pH, UA 5.0 5.0 - 8.0 [facility] Protein, UA 20 mg/dL (A) Negative [facility] Glucose, UA Negative Negative [facility] Ketones, UA Negative Negative [facility] Bilirubin, UA Negative Negative [facility] Blood, UA Negative Negative [facility] Nitrite, UA Negative Negative [facility] Leukocytes, UA Small (A) Negative [facility] Urobilinogen, UA 0.2 0.2 - 1.0 mg/dL [facility] Specimen Source [facility] Specimen Urine Performing Organization Address [facility]/Zipcode Phone Number [address] [address] [place] ECG 12 lead (06/01/2018 1:51 AM CDT) Specimen Narrative Performed At Ventricular Rate 46 BPM GE MUSE Atrial Rate 46 BPM P-R Interval 204 ms QRS Duration 156 ms Q-T Interval 584 ms QTC Calculation(Bazett) 511 ms P Kenneth 39 degrees R Kenneth 108 degrees T Kenneth 71 degrees Sinus bradycardia Non-specific intra-ventricular conduction [...] 584 ms QTC Calculation(Bazett) 511 ms P Kenneth 39 degrees R Kenneth 108 degrees T Kenneth 71 degrees Sinus bradycardia Non-specific intra-ventricular conduction block Possible Lateral infarct , age undetermined Abnormal ECG No previous ECGs available Confirmed by Fahad Sherman ([id number]) on 06/01/2018 3:27:17 PM Performing Organization Address City/State/Zipcode Phone Number GE MUSE after 09/28/2017 Insurance Payer Benefit Plan / Group Subscriber ID Type Phone Address [place] Plan [employer] ALL xxxxxxxx Maps Contracted Advance Directives For more information, please contact:[address] [phone] Code Status Date Activated Date Inactivated Comments Full Code 06/01/2018 1:31 AM 06/09/2018 4:25 PM This code status was determined by: Patient
--- OUTSIDE RECORDS SUMMARY | 2018-09-29 07:41 | XMS REPORT ---
:1945 [facility] Address [address] [place] [address] [address] [place] [address] Care Team Providers Name Role Phone GENESIS WHITFIELDY ARUN YOUNGPHILLIP Unavailable Unavailable Problems This patient has no known problems. Allergies, Adverse Reactions, Alerts This patient has no known allergies or adverse reactions. Medications This patient has no known medications. Results Test Description Test Time Test Comments Text Results Atomic Results Result Comments POCT-GLUCOSE METER 2018-06-09 12:38:00 Test Item Value Reference Range Comments POC-GLUCOSE METER (BEAKER) (test 102 mg/dL 70-110 TESTED AT [address] hmaw=2250) [facility] [address] POCT-GLUCOSE [id number] 08:33:00 Test Item Value Reference Range Comments POC-GLUCOSE METER (BEAKER) 112 mg/dL 70-110 TESTED AT [address] (test mekm=8439) [facility] [address] CALCIUM, [id number] 06:12:00 Test Item Value Reference Range Comments CALCIUM IONIZED (BEAKER) (test nuiv=363) 0.83 mmol/L 1.12-1.27 PH, BLOOD (BEAKER) (test odxj=6636) 7.39 [id number] 04:50:00 Test Item Value Reference Range Comments PHOSPHORUS (BEAKER) (test kdbx=688) 4.6 mg/dL 2.3-4.7 [id number] 04:50:00 Test Item Value Reference Range Comments MAGNESIUM (BEAKER) (test isiw=355) 2.5 mg/dL 1.6-2.6 BASIC METABOLIC [id number] 04:50:00 Test Item Value Reference Range Comments SODIUM (BEAKER) (test 139 meq/L 136-145 ewjo=369) POTASSIUM (BEAKER) (test 4.5 meq/L 3.5-5.1 xkhc=429) CHLORIDE (BEAKER) (test 99 meq/L 98-107 fybp=309) CO2 (BEAKER) (test 29 meq/L 22-29 clhu=317) BLOOD UREA NITROGEN 71 mg/dL 7-21 (BEAKER) (test xpzy=077) CREATININE (BEAKER) (test 2.27 mg/dL 0.57-1.25 rsjs=294) GLUCOSE RANDOM (BEAKER) 106 mg/dL 70-105 (test ujqa=961) CALCIUM (BEAKER) (test 9.6 mg/dL 8.4-10.2 mcxw=705) EGFR (BEAKER) (test 21 mL/min/1.73 sq m ESTIMATED GFR IS NOT wxrp=2823) ACCURATE CREATININE CLEARANCE IN PREDICTING GLOMERULAR FILTRATION RATE. ESTIMATED GFR IS NOT APPLICABLE FOR DIALYSIS PATIENTS. B-TYPE NATRIURETIC FACTOR (BNP)2018-06-09 04:49:00 Test Item Value Reference Range Comments B-TYPE NATRIURETIC PEPTIDE (BEAKER) (test 163 pg/mL 0-100 jmim=104) CBC W/PLT COUNT & AUTO [id number] 04:38:00 Test Item Value Reference Range Comments WHITE BLOOD CELL COUNT (BEAKER) (test damo=636) 9.8 K/ L 3.5-10.5 RED BLOOD CELL COUNT (BEAKER) (test wiuy=921) 2.72 M/ L 3.93-5.22 HEMOGLOBIN (BEAKER) (test kped=247) 8.3 GM/DL 11.2-15.7 HEMATOCRIT (BEAKER) (test auqd=991) 27.2 % 34.1-44.9 MEAN CORPUSCULAR VOLUME (BEAKER) (test kcqk=500) 100.0 fL 79.4-94.8 MEAN CORPUSCULAR HEMOGLOBIN (BEAKER) (test 30.5 pg 25.6-32.2 whwx=290) MEAN CORPUSCULAR HEMOGLOBIN CONC (BEAKER) (test 30.5 GM/DL 32.2-35.5 wtgm=765) RED CELL DISTRIBUTION WIDTH (BEAKER) (test 16.3 % 11.7-14.4 ffkk=448) PLATELET COUNT (BEAKER) (test itwn=654) 286 K/CU MM 150-450 MEAN PLATELET VOLUME (BEAKER) (test iwcp=011) 10.7 fL 9.4-12.3 NUCLEATED RED BLOOD CELLS (BEAKER) (test 0 /100 WBC 0-0 nate=799) NEUTROPHILS RELATIVE PERCENT (BEAKER) (test 74 % zusk=996) LYMPHOCYTES RELATIVE PERCENT (BEAKER) (test 14 % dkie=064) MONOCYTES RELATIVE PERCENT (BEAKER) (test 9 % vkdx=014) EOSINOPHILS RELATIVE PERCENT (BEAKER) (test 1 % jcrr=828) BASOPHILS RELATIVE PERCENT (BEAKER) (test 1 % afic=761) NEUTROPHILS ABSOLUTE COUNT (BEAKER) (test 7.20 K/ L 1.56-6.13 fpbu=463) LYMPHOCYTES ABSOLUTE COUNT (BEAKER) (test 1.36 K/ L 1.18-3.74 heiz=704) MONOCYTES ABSOLUTE COUNT (BEAKER) (test 0.83 K/ L 0.24-0.36 wadq=061) EOSINOPHILS ABSOLUTE COUNT (BEAKER) (test 0.14 K/ L 0.04-0.36 dwfm=948) BASOPHILS ABSOLUTE COUNT (BEAKER) (test 0.07 K/ L 0.01-0.08 vjid=881) IMMATURE GRANULOCYTES-RELATIVE PERCENT (BEAKER) 2 % 0-1 (test nmgw=7974) POCT-GLUCOSE [id number] 21:18:00 Test Item Value Reference Range Comments POC-GLUCOSE METER (BEAKER) 139 mg/dL 70-110 TESTED AT [address] (test lvoa=8519) [place] [address] POCT-GLUCOSE [id number] 16:59:00 Test Item Value Reference Range Comments POC-GLUCOSE METER (BEAKER) 139 mg/dL 70-110 TESTED AT [address] (test wqxg=2231) [place] [id number] POCT-GLUCOSE [id number] 14:08:00 Test Item Value Reference Range Comments POC-GLUCOSE METER (BEAKER) 134 mg/dL 70-110 TESTED AT [address] (test rgus=9881) [place] [id number] HEPATIC FUNCTION [id number] 13:25:00 Test Item Value Reference Range Comments TOTAL PROTEIN (BEAKER) (test cbqn=175) 8.2 gm/dL 6.0-8.3 ALBUMIN (BEAKER) (test inse=5182) 3.6 g/dL 3.5-5.0 BILIRUBIN TOTAL (BEAKER) (test vdsk=019) 0.3 mg/dL 0.2-1.2 BILIRUBIN DIRECT (BEAKER) (test mfua=705) 0.2 mg/dL 0.1-0.5 ALKALINE PHOSPHATASE (BEAKER) (test nsbn=009) 80 U/L 40-150 AST (SGOT) (BEAKER) (test gino=578) 22 U/L 5-34 ALT (SGPT) (BEAKER) (test kanl=408) 15 U/L 6-55 POCT-GLUCOSE [id number] 08:58:00 Test Item Value Reference Range Comments POC-GLUCOSE METER (BEAKER) 144 mg/dL 70-110 TESTED AT [facility] [address] [facility] (test lfpr=9081) [facility] [address] BASIC METABOLIC [id number] 06:00:00 Test Item Value Reference Range Comments SODIUM (BEAKER) (test 139 meq/L 136-145 bnnn=270) POTASSIUM (BEAKER) (test 4.4 meq/L 3.5-5.1 yfkq=299) CHLORIDE (BEAKER) (test 98 meq/L 98-107 pbac=171) CO2 (BEAKER) (test 29 meq/L 22-29 ilap=374) BLOOD UREA NITROGEN 66 mg/dL 7-21 (BEAKER) (test snds=452) CREATININE (BEAKER) (test 1.89 mg/dL 0.57-1.25 ooqu=190) GLUCOSE RANDOM (BEAKER) 130 mg/dL 70-105 (test cupd=234) CALCIUM (BEAKER) (test 9.8 mg/dL 8.4-10.2 xbhr=543) EGFR (BEAKER) (test 26 mL/min/1.73 sq m ESTIMATED GFR IS NOT fgba=0272) ACCURATE CREATININE CLEARANCE IN PREDICTING GLOMERULAR FILTRATION RATE. ESTIMATED GFR IS NOT APPLICABLE FOR DIALYSIS PATIENTS. CBC W/PLT COUNT & AUTO [id number] 05:06:00 Test Item Value Reference Range Comments WHITE BLOOD CELL COUNT (BEAKER) (test ewca=594) 8.7 K/ L 3.5-10.5 RED BLOOD CELL COUNT (BEAKER) (test cixn=167) 2.63 M/ L 3.93-5.22 HEMOGLOBIN (BEAKER) (test tvug=575) 8.1 GM/DL 11.2-15.7 HEMATOCRIT (BEAKER) (test qwoj=014) 26.4 % 34.1-44.9 MEAN CORPUSCULAR VOLUME (BEAKER) (test byqx=060) 100.4 fL 79.4-94.8 MEAN CORPUSCULAR HEMOGLOBIN (BEAKER) (test 30.8 pg 25.6-32.2 zhgn=222) MEAN CORPUSCULAR HEMOGLOBIN CONC (BEAKER) (test 30.7 GM/DL 32.2-35.5 zsoz=769) RED CELL DISTRIBUTION WIDTH (BEAKER) (test 16.1 % 11.7-14.4 tfuu=982) PLATELET COUNT (BEAKER) (test fajo=464) 307 K/CU MM 150-450 MEAN PLATELET VOLUME (BEAKER) (test qrju=248) 10.7 fL 9.4-12.3 NUCLEATED RED BLOOD CELLS (BEAKER) (test 0 /100 WBC 0-0 wyys=912) NEUTROPHILS RELATIVE PERCENT (BEAKER) (test 76 % bvnq=055) LYMPHOCYTES RELATIVE PERCENT (BEAKER) (test 12 % pztd=253) MONOCYTES RELATIVE PERCENT (BEAKER) (test 8 % lhxm=538) EOSINOPHILS RELATIVE PERCENT (BEAKER) (test 1 % bbsu=584) BASOPHILS RELATIVE PERCENT (BEAKER) (test 1 % rqtu=366) NEUTROPHILS ABSOLUTE COUNT (BEAKER) (test 6.66 K/ L 1.56-6.13 hsgq=835) LYMPHOCYTES ABSOLUTE COUNT (BEAKER) (test 1.06 K/ L 1.18-3.74 ipon=150) MONOCYTES ABSOLUTE COUNT (BEAKER) (test 0.67 K/ L 0.24-0.36 zqei=632) EOSINOPHILS ABSOLUTE COUNT (BEAKER) (test 0.09 K/ L 0.04-0.36 esux=559) BASOPHILS ABSOLUTE COUNT (BEAKER) (test 0.07 K/ L 0.01-0.08 hzut=611) IMMATURE GRANULOCYTES-RELATIVE PERCENT (BEAKER) 2 % 0-1 (test qboy=0390) POCT-GLUCOSE [id number] 21:22:00 Test Item Value Reference Range Comments POC-GLUCOSE METER (BEAKER) 163 mg/dL 70-110 TESTED AT [facility] [address] [facility] (test nzkw=1633) [facility] [address] CT, [id number] 19:36:00FINAL REPORT TECHNIQUE: CT of the abdomen [...] MDReport Verified Date/Time: 06/07/2018 19:36:11 Reading Location: [facility] B1 C013Y CT Body Reading Room POCT- GLUCOSE [id number] 17:03:00 Test Item Value Reference Range Comments POC-GLUCOSE METER (BEAKER) 174 mg/dL 70-110 TESTED AT [address] (test lyaa=5199) [facility] [address] POCT-GLUCOSE [id number] 12:46:00 Test Item Value Reference Range Comments POC-GLUCOSE METER (BEAKER) 137 mg/dL 70-110 TESTED AT [address] (test jwaz=1482) [facility] [address] POCT-GLUCOSE [id number] 07:49:00 Test Item Value Reference Range Comments POC-GLUCOSE METER (BEAKER) 157 mg/dL 70-110 TESTED AT [address] (test tzta=3514) [facility] [address] CALCIUM, [id number] 07:49:00 Test Item Value Reference Range Comments CALCIUM IONIZED (BEAKER) (test xulo=050) 1.09 mmol/L 1.12-1.27 PH, BLOOD (BEAKER) (test eqxv=9989) 7.42 BASIC METABOLIC [id number] 06:01:00 Test Item Value Reference Range Comments SODIUM (BEAKER) (test 140 meq/L 136-145 yjcb=295) POTASSIUM (BEAKER) (test 4.2 meq/L 3.5-5.1 kkbv=527) CHLORIDE (BEAKER) (test 100 meq/L 98-107 dgme=276) CO2 (BEAKER) (test 29 meq/L 22-29 vrip=800) BLOOD UREA NITROGEN 58 mg/dL 7-21 (BEAKER) (test qohy=915) CREATININE (BEAKER) (test 1.76 mg/dL 0.57-1.25 yrol=372) GLUCOSE RANDOM (BEAKER) 132 mg/dL 70-105 (test ubcf=662) CALCIUM (BEAKER) (test 9.7 mg/dL 8.4-10.2 yezg=167) EGFR (BEAKER) (test 28 mL/min/1.73 sq m ESTIMATED GFR IS NOT kcdm=6584) ACCURATE CREATININE CLEARANCE IN PREDICTING GLOMERULAR FILTRATION RATE. ESTIMATED GFR IS NOT APPLICABLE FOR DIALYSIS PATIENTS. [id number] 05:56:00 Test Item Value Reference Range Comments PHOSPHORUS (BEAKER) (test rbvd=582) 4.1 mg/dL 2.3-4.7 [id number] 05:56:00 Test Item Value Reference Range Comments MAGNESIUM (BEAKER) (test wmxh=533) 2.2 mg/dL 1.6-2.6 CBC W/PLT COUNT & AUTO [id number] 05:10:00 Test Item Value Reference Range Comments WHITE BLOOD CELL COUNT (BEAKER) (test ilrq=724) 7.5 K/ L 3.5-10.5 RED BLOOD CELL COUNT (BEAKER) (test hutv=703) 2.60 M/ L 3.93-5.22 HEMOGLOBIN (BEAKER) (test sgma=928) 7.8 GM/DL 11.2-15.7 HEMATOCRIT (BEAKER) (test ucfv=849) 25.8 % 34.1-44.9 MEAN CORPUSCULAR VOLUME (BEAKER) (test ajoh=950) 99.2 fL 79.4-94.8 MEAN CORPUSCULAR HEMOGLOBIN (BEAKER) (test 30.0 pg 25.6-32.2 sttu=415) MEAN CORPUSCULAR HEMOGLOBIN CONC (BEAKER) (test 30.2 GM/DL 32.2-35.5 jrtl=046) RED CELL DISTRIBUTION WIDTH (BEAKER) (test 16.0 % 11.7-14.4 qdqx=898) PLATELET COUNT (BEAKER) (test ueoy=662) 259 K/CU MM 150-450 MEAN PLATELET VOLUME (BEAKER) (test tlgf=835) 10.3 fL 9.4-12.3 NUCLEATED RED BLOOD CELLS (BEAKER) (test 0 /100 WBC 0-0 cobc=469) NEUTROPHILS RELATIVE PERCENT (BEAKER) (test 72 % pzjx=730) LYMPHOCYTES RELATIVE PERCENT (BEAKER) (test 14 % mbiw=684) MONOCYTES RELATIVE PERCENT (BEAKER) (test 9 % stia=465) EOSINOPHILS RELATIVE PERCENT (BEAKER) (test 4 % htbb=780) BASOPHILS RELATIVE PERCENT (BEAKER) (test 1 % vwkd=032) NEUTROPHILS ABSOLUTE COUNT (BEAKER) (test 5.36 K/ L 1.56-6.13 mqkr=610) LYMPHOCYTES ABSOLUTE COUNT (BEAKER) (test 1.02 K/ L 1.18-3.74 dfpr=299) MONOCYTES ABSOLUTE COUNT (BEAKER) (test 0.65 K/ L 0.24-0.36 madh=191) EOSINOPHILS ABSOLUTE COUNT (BEAKER) (test 0.28 K/ L 0.04-0.36 ktcf=024) BASOPHILS ABSOLUTE COUNT (BEAKER) (test 0.05 K/ L 0.01-0.08 fdyv=104) IMMATURE GRANULOCYTES-RELATIVE PERCENT (BEAKER) 2 % 0-1 (test bpdw=3373) POCT-GLUCOSE [id number] 21:01:00 Test Item Value Reference Range Comments POC-GLUCOSE METER (BEAKER) 161 mg/dL 70-110 TESTED AT [address] (test jpdo=5952) [place] [address] POCT-GLUCOSE [id number] 17:14:00 Test Item Value Reference Range Comments POC-GLUCOSE METER (BEAKER) 160 mg/dL 70-110 TESTED AT [address] (test dasj=6957) [place] [address] POCT-GLUCOSE [id number] 12:13:00 Test Item Value Reference Range Comments POC-GLUCOSE METER (BEAKER) 143 mg/dL 70-110 TESTED AT [address] (test ysyd=8289) [place] [address] POCT-GLUCOSE [id number] 07:22:00 Test Item Value Reference Range Comments POC-GLUCOSE METER (BEAKER) 147 mg/dL 70-110 TESTED AT [address] (test fsig=7264) [place] [address] BASIC METABOLIC [id number] 06:14:00 Test Item Value Reference Range Comments SODIUM (BEAKER) (test 141 meq/L 136-145 vsfd=548) POTASSIUM (BEAKER) (test 4.3 meq/L 3.5-5.1 zliu=900) CHLORIDE (BEAKER) (test 104 meq/L 98-107 txvy=967) CO2 (BEAKER) (test 28 meq/L 22-29 tavp=543) BLOOD UREA NITROGEN 60 mg/dL 7-21 (BEAKER) (test nobp=704) CREATININE (BEAKER) (test 1.90 mg/dL 0.57-1.25 cgjo=481) GLUCOSE RANDOM (BEAKER) 152 mg/dL 70-105 (test kktf=510) CALCIUM (BEAKER) (test 9.4 mg/dL 8.4-10.2 egfk=997) EGFR (BEAKER) (test 26 mL/min/1.73 sq m ESTIMATED GFR IS NOT jdpa=4153) ACCURATE CREATININE CLEARANCE IN PREDICTING GLOMERULAR FILTRATION RATE. ESTIMATED GFR IS NOT APPLICABLE FOR DIALYSIS PATIENTS. CBC W/PLT COUNT & AUTO [id number] 05:32:00 Test Item Value Reference Range Comments WHITE BLOOD CELL COUNT (BEAKER) (test lzar=277) 8.1 K/ L 3.5-10.5 RED BLOOD CELL COUNT (BEAKER) (test waxi=336) 2.28 M/ L 3.93-5.22 HEMOGLOBIN (BEAKER) (test ekqt=140) 7.1 GM/DL 11.2-15.7 HEMATOCRIT (BEAKER) (test xxkf=994) 23.1 % 34.1-44.9 MEAN CORPUSCULAR VOLUME (BEAKER) (test cthk=859) 101.3 fL 79.4-94.8 MEAN CORPUSCULAR HEMOGLOBIN (BEAKER) (test 31.1 pg 25.6-32.2 lkrx=219) MEAN CORPUSCULAR HEMOGLOBIN CONC (BEAKER) (test 30.7 GM/DL 32.2-35.5 gnsl=483) RED CELL DISTRIBUTION WIDTH (BEAKER) (test 16.7 % 11.7-14.4 azxl=825) PLATELET COUNT (BEAKER) (test tvtq=112) 233 K/CU MM 150-450 MEAN PLATELET VOLUME (BEAKER) (test likx=392) 10.4 fL 9.4-12.3 NUCLEATED RED BLOOD CELLS (BEAKER) (test 0 /100 WBC 0-0 aixn=558) NEUTROPHILS RELATIVE PERCENT (BEAKER) (test 78 % rzds=815) LYMPHOCYTES RELATIVE PERCENT (BEAKER) (test 9 % fvyf=561) MONOCYTES RELATIVE PERCENT (BEAKER) (test 9 % jdru=570) EOSINOPHILS RELATIVE PERCENT (BEAKER) (test 3 % lygk=831) BASOPHILS RELATIVE PERCENT (BEAKER) (test 1 % wndb=602) NEUTROPHILS ABSOLUTE COUNT (BEAKER) (test 6.31 K/ L 1.56-6.13 dhag=218) LYMPHOCYTES ABSOLUTE COUNT (BEAKER) (test 0.70 K/ L 1.18-3.74 xlyz=728) MONOCYTES ABSOLUTE COUNT (BEAKER) (test 0.74 K/ L 0.24-0.36 ztpz=030) EOSINOPHILS ABSOLUTE COUNT (BEAKER) (test 0.24 K/ L 0.04-0.36 vhqu=625) BASOPHILS ABSOLUTE COUNT (BEAKER) (test 0.05 K/ L 0.01-0.08 qxfv=075) IMMATURE GRANULOCYTES-RELATIVE PERCENT (BEAKER) 1 % 0-1 (test kryc=5517) POCT-GLUCOSE [id number] 21:19:00 Test Item Value Reference Range Comments POC-GLUCOSE METER (BEAKER) 178 mg/dL 70-110 TESTED AT [address] (test vcvv=2924) [place] [address] POCT-GLUCOSE [id number] 20:47:00 Test Item Value Reference Range Comments POC-GLUCOSE METER (BEAKER) 172 mg/dL 70-110 TESTED AT [address] (test dfqi=2373) [place] [address] POCT-GLUCOSE [id number] 17:56:00 Test Item Value Reference Range Comments POC-GLUCOSE METER (BEAKER) 167 mg/dL 70-110 TESTED AT [address] (test vpwb=6809) [place] [address] URINALYSIS W/ REFLEX URINE [id number] 15:07:00 Test Item Value Reference Range Comments COLOR (BEAKER) (test xufd=202) Light Yellow CLARITY (BEAKER) (test klyb=991) Hazy SPECIFIC GRAVITY UA (BEAKER) (test neez=409) 1.008 1.001-1.035 PH UA (BEAKER) (test jyzp=947) 5.0 5.0-8.0 PROTEIN UA (BEAKER) (test vzon=997) 30 mg/dL Negative GLUCOSE UA (BEAKER) (test jqby=221) Negative Negative KETONES UA (BEAKER) (test dqpq=397) Negative Negative BILIRUBIN UA (BEAKER) (test cumc=548) Negative Negative BLOOD UA (BEAKER) (test nckl=616) Negative Negative NITRITE UA (BEAKER) (test hluy=523) Positive Negative LEUKOCYTE ESTERASE UA (BEAKER) (test mzre=322) Large Negative UROBILINOGEN UA (BEAKER) (test jneb=233) 0.2 mg/dL 0.2-1.0 RBC UA (BEAKER) (test udyt=964) 1 /HPF WBC UA (BEAKER) (test bfrl=941) 236 /HPF BACTERIA (BEAKER) (test rgmw=929) Few MUCUS (BEAKER) (test nrdn=8320) Rare SQUAMOUS EPITHELIAL (BEAKER) (test ryyi=093) < /HPF SOURCE(BEAKER) (test nowz=9470) CBC W/PLT COUNT & AUTO [id number] 14:31:00 Test Item Value Reference Range Comments WHITE BLOOD CELL COUNT (BEAKER) (test gjym=815) 8.5 K/ L 3.5-10.5 RED BLOOD CELL COUNT (BEAKER) (test upaz=661) 2.34 M/ L 3.93-5.22 HEMOGLOBIN (BEAKER) (test phrx=736) 7.3 GM/DL 11.2-15.7 HEMATOCRIT (BEAKER) (test meka=417) 23.8 % 34.1-44.9 MEAN CORPUSCULAR VOLUME (BEAKER) (test jpao=243) 101.7 fL 79.4-94.8 MEAN CORPUSCULAR HEMOGLOBIN (BEAKER) (test 31.2 pg 25.6-32.2 pjek=345) MEAN CORPUSCULAR HEMOGLOBIN CONC (BEAKER) (test 30.7 GM/DL 32.2-35.5 fnju=960) RED CELL DISTRIBUTION WIDTH (BEAKER) (test 16.7 % 11.7-14.4 ygzt=951) PLATELET COUNT (BEAKER) (test dwfk=325) 247 K/CU MM 150-450 MEAN PLATELET VOLUME (BEAKER) (test ppgy=536) 10.1 fL 9.4-12.3 NUCLEATED RED BLOOD CELLS (BEAKER) (test 0 /100 WBC 0-0 wlaj=437) NEUTROPHILS RELATIVE PERCENT (BEAKER) (test 79 % ezrc=480) LYMPHOCYTES RELATIVE PERCENT (BEAKER) (test 10 % cung=107) MONOCYTES RELATIVE PERCENT (BEAKER) (test 6 % dcgp=983) EOSINOPHILS RELATIVE PERCENT (BEAKER) (test 3 % loii=690) BASOPHILS RELATIVE PERCENT (BEAKER) (test 1 % dywc=648) NEUTROPHILS ABSOLUTE COUNT (BEAKER) (test 6.76 K/ L 1.56-6.13 uxom=638) LYMPHOCYTES ABSOLUTE COUNT (BEAKER) (test 0.87 K/ L 1.18-3.74 hzed=585) MONOCYTES ABSOLUTE COUNT (BEAKER) (test 0.52 K/ L 0.24-0.36 jzto=241) EOSINOPHILS ABSOLUTE COUNT (BEAKER) (test 0.24 K/ L 0.04-0.36 jpyk=520) BASOPHILS ABSOLUTE COUNT (BEAKER) (test 0.05 K/ L 0.01-0.08 ukxc=467) IMMATURE GRANULOCYTES-RELATIVE PERCENT (BEAKER) 1 % 0-1 (test mqra=6420) BASIC METABOLIC [id number] 05:32:00 Test Item Value Reference Range Comments SODIUM (BEAKER) (test 140 meq/L 136-145 vzsw=097) POTASSIUM (BEAKER) (test 4.7 meq/L 3.5-5.1 idcy=849) CHLORIDE (BEAKER) (test 105 meq/L 98-107 xhhr=405) CO2 (BEAKER) (test 26 meq/L 22-29 woyf=282) BLOOD UREA NITROGEN 64 mg/dL 7-21 (BEAKER) (test tvns=196) CREATININE (BEAKER) (test 2.29 mg/dL 0.57-1.25 dkii=835) GLUCOSE RANDOM (BEAKER) 143 mg/dL 70-105 (test cjss=908) CALCIUM (BEAKER) (test 8.8 mg/dL 8.4-10.2 ayue=779) EGFR (BEAKER) (test 21 mL/min/1.73 sq m ESTIMATED GFR IS NOT eosa=0631) ACCURATE CREATININE CLEARANCE IN PREDICTING GLOMERULAR FILTRATION RATE. ESTIMATED GFR IS NOT APPLICABLE FOR DIALYSIS PATIENTS. POCT-GLUCOSE [id number] 21:13:00 Test Item Value Reference Range Comments POC-GLUCOSE METER (BEAKER) 273 mg/dL 70-110 TESTED AT [facility] [address] [facility] (test uqsb=5006) [facility] [address] POCT-GLUCOSE [id number] 13:05:00 Test Item Value Reference Range Comments POC-GLUCOSE METER (BEAKER) 289 mg/dL 70-110 TESTED AT [facility] [address] [facility] (test fwby=7614) [facility] [address] POCT-GLUCOSE [id number] 08:18:00 Test Item Value Reference Range Comments POC-GLUCOSE METER (BEAKER) 201 mg/dL 70-110 TESTED AT [facility] [address] [facility] (test jewg=8625) [facility] [address] BASIC METABOLIC [id number] 08:03:00 Test Item Value Reference Range Comments SODIUM (BEAKER) (test 141 meq/L 136-145 xaex=704) POTASSIUM (BEAKER) (test 4.5 meq/L 3.5-5.1 nqtq=531) CHLORIDE (BEAKER) (test 110 meq/L 98-107 mzdt=647) CO2 (BEAKER) (test 24 meq/L 22-29 esgt=245) BLOOD UREA NITROGEN 59 mg/dL 7-21 (BEAKER) (test hekc=940) CREATININE (BEAKER) (test 2.24 mg/dL 0.57-1.25 vvqv=259) GLUCOSE RANDOM (BEAKER) 128 mg/dL 70-105 (test okmp=752) CALCIUM (BEAKER) (test 8.9 mg/dL 8.4-10.2 nmjt=497) EGFR (BEAKER) (test 21 mL/min/1.73 sq m ESTIMATED GFR IS NOT wjdm=2117) ACCURATE CREATININE CLEARANCE IN PREDICTING GLOMERULAR FILTRATION RATE. ESTIMATED GFR IS NOT APPLICABLE FOR DIALYSIS PATIENTS. CALCIUM, [id number] 05:43:00 Test Item Value Reference Range Comments CALCIUM IONIZED (BEAKER) (test jwkg=956) 1.12 mmol/L 1.12-1.27 PH, BLOOD (BEAKER) (test wdpo=2204) 7.34 CBC W/PLT COUNT & AUTO [id number] 05:36:00 Test Item Value Reference Range Comments WHITE BLOOD CELL COUNT (BEAKER) (test tlnv=584) 6.7 K/ L 3.5-10.5 RED BLOOD CELL COUNT (BEAKER) (test zlzc=694) 2.28 M/ L 3.93-5.22 HEMOGLOBIN (BEAKER) (test tvyq=683) 7.0 GM/DL 11.2-15.7 HEMATOCRIT (BEAKER) (test rnmx=659) 23.6 % 34.1-44.9 MEAN CORPUSCULAR VOLUME (BEAKER) (test auam=929) 103.5 fL 79.4-94.8 MEAN CORPUSCULAR HEMOGLOBIN (BEAKER) (test 30.7 pg 25.6-32.2 caqx=017) MEAN CORPUSCULAR HEMOGLOBIN CONC (BEAKER) (test 29.7 GM/DL 32.2-35.5 ziuy=107) RED CELL DISTRIBUTION WIDTH (BEAKER) (test 17.6 % 11.7-14.4 osbt=351) PLATELET COUNT (BEAKER) (test ahts=664) 237 K/CU MM 150-450 MEAN PLATELET VOLUME (BEAKER) (test aojm=346) 10.3 fL 9.4-12.3 NUCLEATED RED BLOOD CELLS (BEAKER) (test 0 /100 WBC 0-0 lolc=819) NEUTROPHILS RELATIVE PERCENT (BEAKER) (test 77 % iqjb=460) LYMPHOCYTES RELATIVE PERCENT (BEAKER) (test 10 % hcqs=245) MONOCYTES RELATIVE PERCENT (BEAKER) (test 7 % vrdk=570) EOSINOPHILS RELATIVE PERCENT (BEAKER) (test 5 % rrkm=694) BASOPHILS RELATIVE PERCENT (BEAKER) (test 1 % dyti=477) NEUTROPHILS ABSOLUTE COUNT (BEAKER) (test 5.16 K/ L 1.56-6.13 tqah=616) LYMPHOCYTES ABSOLUTE COUNT (BEAKER) (test 0.65 K/ L 1.18-3.74 knek=265) MONOCYTES ABSOLUTE COUNT (BEAKER) (test 0.49 K/ L 0.24-0.36 yhrm=420) EOSINOPHILS ABSOLUTE COUNT (BEAKER) (test 0.30 K/ L 0.04-0.36 ronr=001) BASOPHILS ABSOLUTE COUNT (BEAKER) (test 0.03 K/ L 0.01-0.08 irjd=418) IMMATURE GRANULOCYTES-RELATIVE PERCENT (BEAKER) 1 % 0-1 (test hcux=7005) POCT-GLUCOSE [id number] 21:38:00 Test Item Value Reference Range Comments POC-GLUCOSE METER (BEAKER) 159 mg/dL 70-110 TESTED AT [facility] [address] [facility] (test nkie=1808) [facility] [address] URINALYSIS W/ REFLEX URINE [id number] 17:26:00 Test Item Value Reference Range Comments COLOR (BEAKER) (test eour=266) Light Yellow CLARITY (BEAKER) (test iuej=841) Hazy SPECIFIC GRAVITY UA (BEAKER) (test kyqk=238) 1.008 1.001-1.035 PH UA (BEAKER) (test zxkz=271) 5.0 5.0-8.0 PROTEIN UA (BEAKER) (test fgzm=421) 20 mg/dL Negative GLUCOSE UA (BEAKER) (test feam=334) Negative Negative KETONES UA (BEAKER) (test ewfg=696) Negative Negative BILIRUBIN UA (BEAKER) (test bvyp=934) Negative Negative BLOOD UA (BEAKER) (test wzzn=351) Negative Negative NITRITE UA (BEAKER) (test cnax=779) Positive Negative LEUKOCYTE ESTERASE UA (BEAKER) (test oyve=006) Large Negative UROBILINOGEN UA (BEAKER) (test dkda=024) 0.2 mg/dL 0.2-1.0 RBC UA (BEAKER) (test jnzo=288) 11 /HPF WBC UA (BEAKER) (test xlpk=592) 254 /HPF BACTERIA (BEAKER) (test avml=175) Many MUCUS (BEAKER) (test vlrp=4875) Rare SQUAMOUS EPITHELIAL (BEAKER) (test wxfd=542) 5 /HPF HYALINE CASTS (BEAKER) (test dtaj=434) 4 /LPF CRYSTALS, URINE (BEAKER) (test sjxy=5289) Occasional YEAST (BEAKER) (test xdsh=3416) Occasional SOURCE(BEAKER) (test bvoy=4008) POCT-GLUCOSE [id number] 17:21:00 Test Item Value Reference Range Comments POC-GLUCOSE METER (BEAKER) 144 mg/dL 70-110 TESTED AT [facility] [address] [facility] (test evnq=3957) [facility] [address] POCT-GLUCOSE [id number] 12:30:00 Test Item Value Reference Range Comments POC-GLUCOSE METER (BEAKER) 149 mg/dL 70-110 TESTED AT [place] [id number] [facility] (test lmzo=9948) [facility] [address] RAD, CHEST, 1 VIEW, NON [id number] 09:25:00Reason for exam:->edemaShould this be performed at the bedside?->YesFINAL REPORT Portable chest. CLINICAL HISTORY: edema. COMPARISON STUDY: 2018. FINDINGS: The cardiac silhouette is enlarged. The pulmonary parenchyma demonstrates mild interstitial markings with atelectatic changes, improved from previous. No pneumothorax is seen. Degenerative changes are noted. IMPRESSION: Improvement in pulmonary opacities. Signed: Jamison Orozco MDReport Verified Date/Time: 06/03/2018 09:25:59 Reading Location: [facility] Radiology Reading Room POCT-GLUCOSE [id number] 08:34:00 Test Item Value Reference Range Comments POC-GLUCOSE METER (BEAKER) 160 mg/dL 70-110 TESTED AT [facility] [address] [facility] (test bmip=4914) [facility] [address] CALCIUM, [id number] 06:35:00 Test Item Value Reference Range Comments CALCIUM IONIZED (BEAKER) (test yrbc=451) 0.94 mmol/L 1.12-1.27 PH, BLOOD (BEAKER) (test iqpr=6870) 7.34 COMPREHENSIVE METABOLIC [id number] 06:17:00 Test Item Value Reference Range Comments TOTAL PROTEIN (BEAKER) 7.4 gm/dL 6.0-8.3 (test ogwd=304) ALBUMIN (BEAKER) (test 3.3 g/dL 3.5-5.0 bggd=2607) ALKALINE PHOSPHATASE 87 U/L 40-150 (BEAKER) (test vuuj=520) BILIRUBIN TOTAL (BEAKER) 0.4 mg/dL 0.2-1.2 (test nwoc=783) SODIUM (BEAKER) (test 141 meq/L 136-145 kmwr=075) POTASSIUM (BEAKER) (test 4.7 meq/L 3.5-5.1 syly=680) CHLORIDE (BEAKER) (test 112 meq/L 98-107 sjyl=283) CO2 (BEAKER) (test 19 meq/L 22-29 ytyk=513) BLOOD UREA NITROGEN 64 mg/dL 7-21 (BEAKER) (test tzwr=365) CREATININE (BEAKER) (test 2.62 mg/dL 0.57-1.25 npnx=609) GLUCOSE RANDOM (BEAKER) 162 mg/dL 70-105 (test fhst=253) CALCIUM (BEAKER) (test 8.7 mg/dL 8.4-10.2 ejrr=055) AST (SGOT) (BEAKER) (test 11 U/L 5-34 joci=170) ALT (SGPT) (BEAKER) (test 11 U/L 6-55 wxma=982) EGFR (BEAKER) (test 18 mL/min/1.73 sq m ESTIMATED GFR IS NOT hjpt=1219) ACCURATE CREATININE CLEARANCE IN PREDICTING GLOMERULAR FILTRATION RATE. ESTIMATED GFR IS NOT APPLICABLE FOR DIALYSIS PATIENTS. [id number] 05:51:00 Test Item Value Reference Range Comments PHOSPHORUS (BEAKER) (test dzig=912) 4.6 mg/dL 2.3-4.7 [id number] 05:51:00 Test Item Value Reference Range Comments MAGNESIUM (BEAKER) (test gxwx=506) 2.7 mg/dL 1.6-2.6 CBC W/PLT COUNT & AUTO [id number] 05:51:00 Test Item Value Reference Range Comments WHITE BLOOD CELL COUNT (BEAKER) (test zrnj=752) 10.8 K/ L 3.5-10.5 RED BLOOD CELL COUNT (BEAKER) (test obdq=971) 2.30 M/ L 3.93-5.22 HEMOGLOBIN (BEAKER) (test jkmg=137) 7.0 GM/DL 11.2-15.7 HEMATOCRIT (BEAKER) (test qsby=382) 23.9 % 34.1-44.9 MEAN CORPUSCULAR VOLUME (BEAKER) (test vtar=922) 103.9 fL 79.4-94.8 MEAN CORPUSCULAR HEMOGLOBIN (BEAKER) (test 30.4 pg 25.6-32.2 kudc=310) MEAN CORPUSCULAR HEMOGLOBIN CONC (BEAKER) (test 29.3 GM/DL 32.2-35.5 tnbj=516) RED CELL DISTRIBUTION WIDTH (BEAKER) (test 18.0 % 11.7-14.4 jfor=027) PLATELET COUNT (BEAKER) (test pznk=059) 237 K/CU MM 150-450 MEAN PLATELET VOLUME (BEAKER) (test favr=252) 10.4 fL 9.4-12.3 NUCLEATED RED BLOOD CELLS (BEAKER) (test 0 /100 WBC 0-0 piqm=430) NEUTROPHILS RELATIVE PERCENT (BEAKER) (test 85 % llja=314) LYMPHOCYTES RELATIVE PERCENT (BEAKER) (test 5 % pdfp=360) MONOCYTES RELATIVE PERCENT (BEAKER) (test 6 % lmha=762) EOSINOPHILS RELATIVE PERCENT (BEAKER) (test 2 % bhsv=171) BASOPHILS RELATIVE PERCENT (BEAKER) (test 1 % rcmn=305) NEUTROPHILS ABSOLUTE COUNT (BEAKER) (test 9.20 K/ L 1.56-6.13 hert=253) LYMPHOCYTES ABSOLUTE COUNT (BEAKER) (test 0.52 K/ L 1.18-3.74 yzdx=989) MONOCYTES ABSOLUTE COUNT (BEAKER) (test 0.69 K/ L 0.24-0.36 nmgd=479) EOSINOPHILS ABSOLUTE COUNT (BEAKER) (test 0.24 K/ L 0.04-0.36 zumr=880) BASOPHILS ABSOLUTE COUNT (BEAKER) (test 0.07 K/ L 0.01-0.08 dcoc=609) IMMATURE GRANULOCYTES-RELATIVE PERCENT (BEAKER) 1 % 0-1 (test pslz=4318) POCT-GLUCOSE [id number] 05:34:00 Test Item Value Reference Range Comments POC-GLUCOSE METER (BEAKER) 175 mg/dL 70-110 TESTED AT [address] (test orox=4682) [facility] [address] B-TYPE NATRIURETIC FACTOR (BNP)2018-06-03 05:26:00 Test Item Value Reference Range Comments B-TYPE NATRIURETIC PEPTIDE (BEAKER) (test 502 pg/mL 0-100 lnva=995) POCT-GLUCOSE [id number] 21:27:00 Test Item Value Reference Range Comments POC-GLUCOSE METER (BEAKER) 201 mg/dL 70-110 TESTED AT [address] (test jlxh=6195) [facility] [address] POCT-GLUCOSE [id number] 18:10:00 Test Item Value Reference Range Comments POC-GLUCOSE METER (BEAKER) 151 mg/dL 70-110 TESTED AT [address] (test cewc=5603) [place] [id number] POCT-GLUCOSE [id number] 12:34:00 Test Item Value Reference Range Comments POC-GLUCOSE METER (BEAKER) 227 mg/dL 70-110 TESTED AT [facility] [address] [place] [address] (test kgkb=4667) [facility] [address] U/S, RENAL, [id number] 10:53:00Reason for exam:->AKIShould this be performed at [...] MDReport Verified Date/Time: 06/02/2018 10:53:55 Reading Location: [address] Ultrasound Reading Room POCT-GLUCOSE [id number] 10:32:00 Test Item Value Reference Range Comments POC-GLUCOSE METER (BEAKER) 163 mg/dL 70-110 TESTED AT [address] (test osuh=0872) [facility] [address] BASIC METABOLIC [id number] 06:49:00 Test Item Value Reference Range Comments SODIUM (BEAKER) (test 141 meq/L 136-145 rqqu=478) POTASSIUM (BEAKER) (test 4.8 meq/L 3.5-5.1 Specimen slightly rcmz=728) hemolyzed CHLORIDE (BEAKER) (test 112 meq/L 98-107 brge=110) CO2 (BEAKER) (test 16 meq/L 22-29 omtt=267) BLOOD UREA NITROGEN 67 mg/dL 7-21 (BEAKER) (test abaq=181) CREATININE (BEAKER) (test 3.09 mg/dL 0.57-1.25 Specimen slightly hiof=607) hemolyzed GLUCOSE RANDOM (BEAKER) 132 mg/dL 70-105 (test qsdo=625) CALCIUM (BEAKER) (test 8.7 mg/dL 8.4-10.2 jzjw=814) EGFR (BEAKER) (test 15 mL/min/1.73 sq m ESTIMATED GFR IS NOT onff=2297) ACCURATE CREATININE CLEARANCE IN PREDICTING GLOMERULAR FILTRATION RATE. ESTIMATED GFR IS NOT APPLICABLE FOR DIALYSIS PATIENTS. [id number] 06:37:00 Test Item Value Reference Range Comments MAGNESIUM (BEAKER) (test ekqt=442) 3.0 mg/dL 1.6-2.6 CALCIUM, [id number] 06:36:00 Test Item Value Reference Range Comments CALCIUM IONIZED (BEAKER) (test hmum=892) 0.95 mmol/L 1.12-1.27 PH, BLOOD (BEAKER) (test bwdn=2401) 7.31 CBC W/PLT COUNT & AUTO [id number] 05:50:00 Test Item Value Reference Range Comments WHITE BLOOD CELL COUNT (BEAKER) (test lhyw=182) 8.2 K/ L 3.5-10.5 RED BLOOD CELL COUNT (BEAKER) (test hprl=685) 2.53 M/ L 3.93-5.22 HEMOGLOBIN (BEAKER) (test wmfh=003) 7.8 GM/DL 11.2-15.7 HEMATOCRIT (BEAKER) (test llih=057) 26.3 % 34.1-44.9 MEAN CORPUSCULAR VOLUME (BEAKER) (test hezb=474) 104.0 fL 79.4-94.8 MEAN CORPUSCULAR HEMOGLOBIN (BEAKER) (test 30.8 pg 25.6-32.2 rjum=049) MEAN CORPUSCULAR HEMOGLOBIN CONC (BEAKER) (test 29.7 GM/DL 32.2-35.5 ugzo=781) RED CELL DISTRIBUTION WIDTH (BEAKER) (test 18.4 % 11.7-14.4 vnbj=285) PLATELET COUNT (BEAKER) (test hljj=275) 299 K/CU MM 150-450 MEAN PLATELET VOLUME (BEAKER) (test chff=369) 10.6 fL 9.4-12.3 NUCLEATED RED BLOOD CELLS (BEAKER) (test 0 /100 WBC 0-0 nbpo=872) NEUTROPHILS RELATIVE PERCENT (BEAKER) (test 78 % bayl=993) LYMPHOCYTES RELATIVE PERCENT (BEAKER) (test 10 % acfz=403) MONOCYTES RELATIVE PERCENT (BEAKER) (test 6 % jsvc=378) EOSINOPHILS RELATIVE PERCENT (BEAKER) (test 4 % ykeu=143) BASOPHILS RELATIVE PERCENT (BEAKER) (test 1 % lypk=545) NEUTROPHILS ABSOLUTE COUNT (BEAKER) (test 6.43 K/ L 1.56-6.13 xciq=939) LYMPHOCYTES ABSOLUTE COUNT (BEAKER) (test 0.80 K/ L 1.18-3.74 gsjr=066) MONOCYTES ABSOLUTE COUNT (BEAKER) (test 0.51 K/ L 0.24-0.36 mclq=069) EOSINOPHILS ABSOLUTE COUNT (BEAKER) (test 0.36 K/ L 0.04-0.36 shca=032) BASOPHILS ABSOLUTE COUNT (BEAKER) (test 0.06 K/ L 0.01-0.08 ikeo=123) IMMATURE GRANULOCYTES-RELATIVE PERCENT (BEAKER) 1 % 0-1 (test ckjs=1834) RAD, CHEST, 1 VIEW, NON [id number] 04:13:00Reason for exam:->SOBShould this be performed at [...] Verified Date/Time: 06/02/2018 04:13 :47 Reading Location: [address] Reading Room B-TYPE NATRIURETIC FACTOR ( BNP)2018-06-02 00:11:00 Test Item Value Reference Range Comments B-TYPE NATRIURETIC PEPTIDE (BEAKER) (test 622 pg/mL 0-100 myqg=875) POCT-GLUCOSE [id number] 21:23:00 Test Item Value Reference Range Comments POC-GLUCOSE METER (BEAKER) 220 mg/dL 70-110 TESTED AT [facility] [address] [facility] (test alek=5688) [facility] [address] CREATININE, RANDOM [id number] 20:19:00 Test Item Value Reference Range Comments CREATININE URINE (BEAKER) (test ouhf=331) 55.7 mg/dL Reference Range: No NormalsPROTEIN, RANDOM [id number] 20:19:00 Test Item Value Reference Range Comments PROTEIN, URINE (BEAKER) (test wxlo=3639) 31 mg/dL 0-14 POCT-GLUCOSE [id number] 17:39:00 Test Item Value Reference Range Comments POC-GLUCOSE METER (BEAKER) 198 mg/dL 70-110 TESTED AT [address] (test iwah=6096) [place] [address] POCT-GLUCOSE [id number] 12:44:00 Test Item Value Reference Range Comments POC-GLUCOSE METER (BEAKER) 214 mg/dL 70-110 TESTED AT [address] (test sinw=5480) [place] [address] URINALYSIS WITH MICROSCOPIC IF [id number] 11:11:00 Test Item Value Reference Range Comments COLOR (BEAKER) (test fclf=830) Light Yellow CLARITY (BEAKER) (test islg=382) Clear SPECIFIC GRAVITY UA (BEAKER) (test ootg=886) 1.008 1.001-1.035 PH UA (BEAKER) (test cpxr=643) 5.0 5.0-8.0 PROTEIN UA (BEAKER) (test ldot=460) 20 mg/dL Negative GLUCOSE UA (BEAKER) (test nprj=348) Negative Negative KETONES UA (BEAKER) (test uotu=625) Negative Negative BILIRUBIN UA (BEAKER) (test zsbz=359) Negative Negative BLOOD UA (BEAKER) (test undu=169) Negative Negative NITRITE UA (BEAKER) (test kpxr=276) Negative Negative LEUKOCYTE ESTERASE UA (BEAKER) (test xocm=378) Small Negative UROBILINOGEN UA (BEAKER) (test owad=871) 0.2 mg/dL 0.2-1.0 SOURCE(BEAKER) (test egtn=5757) URINALYSIS [id number] 11:09:00 Test Item Value Reference Range Comments RBC UA (BEAKER) (test inef=934) < /HPF WBC UA (BEAKER) (test mxgk=341) 13 /HPF BACTERIA (BEAKER) (test alhb=059) Rare SQUAMOUS EPITHELIAL (BEAKER) (test ccjc=539) 1 /HPF POCT-GLUCOSE [id number] 09:48:00 Test Item Value Reference Range Comments POC-GLUCOSE METER (BEAKER) 162 mg/dL 70-110 TESTED AT [facility] [address] [facility] (test vxgx=4401) [facility] [address] BASIC METABOLIC [id number] 04:46:00 Test Item Value Reference Range Comments SODIUM (BEAKER) (test 141 meq/L 136-145 sobk=998) POTASSIUM (BEAKER) (test 4.1 meq/L 3.5-5.1 ljwv=753) CHLORIDE (BEAKER) (test 113 meq/L 98-107 wpkv=937) CO2 (BEAKER) (test 17 meq/L 22-29 lygg=184) BLOOD UREA NITROGEN 64 mg/dL 7-21 (BEAKER) (test dcqd=126) CREATININE (BEAKER) (test 2.58 mg/dL 0.57-1.25 mhbr=736) GLUCOSE RANDOM (BEAKER) 155 mg/dL 70-105 (test hubu=930) CALCIUM (BEAKER) (test 8.3 mg/dL 8.4-10.2 gfdd=969) EGFR (BEAKER) (test 18 mL/min/1.73 sq m ESTIMATED GFR IS NOT rsbd=3347) ACCURATE CREATININE CLEARANCE IN PREDICTING GLOMERULAR FILTRATION RATE. ESTIMATED GFR IS NOT APPLICABLE FOR DIALYSIS PATIENTS. [id number] 04:45:00 Test Item Value Reference Range Comments MAGNESIUM (BEAKER) (test otbx=096) 2.7 mg/dL 1.6-2.6 CBC W/PLT COUNT & AUTO [id number] 04:29:00 Test Item Value Reference Range Comments WHITE BLOOD CELL COUNT (BEAKER) (test dsdq=910) 9.4 K/ L 3.5-10.5 RED BLOOD CELL COUNT (BEAKER) (test aruk=934) 2.32 M/ L 3.93-5.22 HEMOGLOBIN (BEAKER) (test fynz=823) 7.2 GM/DL 11.2-15.7 HEMATOCRIT (BEAKER) (test nttn=952) 24.4 % 34.1-44.9 MEAN CORPUSCULAR VOLUME (BEAKER) (test rstj=841) 105.2 fL 79.4-94.8 MEAN CORPUSCULAR HEMOGLOBIN (BEAKER) (test 31.0 pg 25.6-32.2 ilss=846) MEAN CORPUSCULAR HEMOGLOBIN CONC (BEAKER) (test 29.5 GM/DL 32.2-35.5 bnod=648) RED CELL DISTRIBUTION WIDTH (BEAKER) (test 18.3 % 11.7-14.4 ksui=645) PLATELET COUNT (BEAKER) (test bsbh=397) 249 K/CU MM 150-450 MEAN PLATELET VOLUME (BEAKER) (test pjqs=444) 10.2 fL 9.4-12.3 NUCLEATED RED BLOOD CELLS (BEAKER) (test 0 /100 WBC 0-0 daue=778) NEUTROPHILS RELATIVE PERCENT (BEAKER) (test 80 % hoje=712) LYMPHOCYTES RELATIVE PERCENT (BEAKER) (test 9 % jcsg=948) MONOCYTES RELATIVE PERCENT (BEAKER) (test 6 % rwyj=635) EOSINOPHILS RELATIVE PERCENT (BEAKER) (test 5 % zpht=256) BASOPHILS RELATIVE PERCENT (BEAKER) (test 1 % jyso=336) NEUTROPHILS ABSOLUTE COUNT (BEAKER) (test 7.46 K/ L 1.56-6.13 cjpz=969) LYMPHOCYTES ABSOLUTE COUNT (BEAKER) (test 0.84 K/ L 1.18-3.74 tpmf=148) MONOCYTES ABSOLUTE COUNT (BEAKER) (test 0.52 K/ L 0.24-0.36 sxit=927) EOSINOPHILS ABSOLUTE COUNT (BEAKER) (test 0.44 K/ L 0.04-0.36 tlfk=362) BASOPHILS ABSOLUTE COUNT (BEAKER) (test 0.07 K/ L 0.01-0.08 vols=474) IMMATURE GRANULOCYTES-RELATIVE PERCENT (BEAKER) 1 % 0-1 (test fpcy=0174)
[2018-09-29] MEDS ORDERED: NA CHLORIDE 0.9% 500 ML ONE (08:15)
[2018-09-29 09:45] VITALS: BP 131/46; TEMP 97.9; O2SAT 97; BMI 34.9
[2018-09-29] MEDS ORDERED: FUROSEMIDE 40 MG/4 ML VIAL ONE (11:47)
[2018-09-29 12:11] LABS: Hematocrit 25.3 % (36.0-45.0)
== END 2018-09-29 12:00 | disposition home or self-care (01) ==
LOC: DS 07:37
PROVIDERS: ATTEND Internal Medicine
DX: D50.9 Iron deficiency anemia, unspecified (principal); N18.4 Chronic kidney disease, stage 4 (severe); D63.1 Anemia in chronic kidney disease
CPT/HCPCS: 36415; 86900; 86850; 86901; 85018; 85014; 36430; J1940; P9016